=== PATIENT | male | born 1940 | race Caucasian/White ===

== ENCOUNTER 2016-10-31 10:22 | Inpatient (IN) | payer OTHER, BC ==
--- NOTE | 2016-10-31 10:56 | DR.EXTPAIN ---
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 HE ALSO HAVE DIFFICULY AMBULATING.USUALY HE REQUIRE ASSISTANCE. LAST NIGHT HE TRY TO GET UP WITHOUT HELP AND FELL ON HIS LEFT SIDE. RESIDUAL LEFT SIDED WEAKNESS SINCE STOKE. HE IS COMPLAING OF LEFT HIP, LEFT LEG AND LEFT KNEEPAIN.ABRSION ON LEFT KNEE. SOME BRUISING ON LEFT SCALP. HE TAKE ASPIRIN. VOMITED ONCE IN ED. - Complaint/Symptoms Chief Complaint Doctor Comments: FALL, LEFT HIP AND LEG PAIN SINCE LAST NIGHT. - Nurses notes reviewed Nurses Notes Review: Yes - Source History Provided: Family Member - Mode of arrival Mode of Arrival: Wheelchair PMH - PMH Past Medical History: CVA, Diabetes, Hypertension Past Surgical History: Yes Surgical History: Unknown - Family History Family Medical History: Coronary Artery Disease, Hypertension - Social History Do you use any recreational Drugs:: No ROS - Review of Systems Constitutional: negative: Chills, Fever Eyes: No Symptoms Reported. negative: Eye Pain, Discharge ENTM: negative: Ear Pain, Nose Discharge, Nose Congestion, Throat Pain Respiratoy: Short of Breath (ON EXERTION) Cardiovascular: No Symptoms Reported. negative: Chest Pain, Edema Gastrointestinal/Abdominal: No Symptoms Reported. negative: Abdominal Pain, Diarrhea, Nausea, Vomiting Neurological: Pre-existing Deficit (LEFT SIDED WEAKNEE, APHASIA), Other ( INCONTINENCE TO URINE). negative: Headache, Dizziness Musculoskeletal: Muscle Pain Integumentary: No Symptoms Reported Hematologic/Lymphatic: No Symptoms Reported Endocrine: No Symptoms Reported All Other Systems: Reviewed and Negative PE - Vital Signs Vitals: Temperature 97.6 F Pulse Rate 72 Respiratory Rate 16 Blood Pressure [Right Arm] 156/72 Blood Pressure [Left Arm] 140/72 Blood Pressure 149/67 O2 Sat by Pulse Oximetry 95 - General Limitations: Other (APHASIA) General Appearance: Alert - Head Head Exam: Normal Inspection - Eyes Eye exam: Normal Appearance - ENT ENT Exam: Normal External Ear Exam - Neck Neck Exam: Normal Inspection - Chest Chest Inspection: Symmetric Chest Wall Rise - Respiratory Respiratory Exam: Normal Lung Sounds Bilat Respiratory Exam: Bilateral Rhonchi, Lower Rhonchi - Cardiovascular Cardiovascular Exam: Regular Rate, Normal Rhythm, Normal Heart Sounds - Abdominal Exam Abdominal Exam: Normal Bowel Sounds, Soft. negative: Tenderness - Extremities Extremities Exam: Tenderness (LEFT HIP AND LEG,), Joint Swelling (LEFT HIP AND KNEE) - Upper Extremities Shoulder Exam: Normal Inspection Arm Exam: Normal Inspection Elbow Exam: Normal Inspection Forearm Exam: Normal Inspection Hand Exam: Normal Inspection Upper Ext. Vascular Exam: Capillary Refill - Lower Extremities Hip/Pelvis Exam: Tenderness (LEFT HIP). negative: Full ROM (DECREASE ROM LT HIP ) Upper Leg Exam: Tenderness (LT FEMUR) Knee Exam: Normal Inspection (TENDER. SMALL ABRASION PRESENT) Lower Leg Exam: Tenderness Foot/Toe Exam: Normal Inspection Neurovascular/Tendon Exam: Motor Deficit (LT SIDED WEAK), Sensory Deficit (LEFT SIDED WEAKNESS FROM PREVIOUS STROKE.) Gait Exam: Not Tested/Not Observed, Unable to bear weight - Back Back Exam: Normal Inspection - Neurological Neurological Exam: Alert, Oriented X3, Motor Sensory Deficit (LT SIDE FROM PREVIOUS STROKE.), Other (APHASIA) - Psychiatric Psychiatric Exam: Normal Affect, Anxious - Skin Type of Lesion: Abrasion (LT KNEE) MDM - Differential Diagnosis Differential Diagnosis: Abrasion, Contusion, Fracture, Sprain Course - Treatment Treatment: SEE ORDERS. - Consultation Consultation Comments: DISCUSS PATIENT WITH DR. AKBAR, ORTHOPEDIC DR. PCP TO ADMIT. HE WILL CONSULT. DR. HOOD WILL ADMIT PATIENT. - Education/Counseling Education/Counseling: Patient, Family, Education Educated On: Diagnosis ROR - Labs Reviewed Laboratory Results Reviewed?: Yes Result Diagrams: 10/31/16 11:02 10/31/16 11:02 Laboratory: WBC 15.3 X10^3/uL (3.6-10.0) H 10/31/16 11:02 RBC 4.06 X10^6/uL (4.7-6.0) L 10/31/16 11:02 Hgb 11.1 g/dL (13.5-18.0) L 10/31/16 11:02 Hct 33.5 % (42.0-54.0) L 10/31/16 11:02 MCV 82.7 fL (80.0-100.0) 10/31/16 11:02 MCH 27.3 pg (27.0-34.0) 10/31/16 11:02 MCHC 33.0 g/dL (33.0-35.0) 10/31/16 11:02 RDW 16.4 % (11.6-16.5) 10/31/16 11:02 Plt Count 219 X10^3/uL (150.0-450.0) 10/31/16 11:02 MPV 7.2 fL (7.4-11.0) L 10/31/16 11:02 Neut % 85.1 % (42.0-75.0) H 10/31/16 11:02 Lymph % 5.1 % (21.0-51.0) L 10/31/16 11:02 [place] % 3.6 % (0.0-13.0) 10/31/16 11:02 Eos % 5.3 % (0.9-2.9) H 10/31/16 11:02 Baso % 0.9 % (0.2-1.0) 10/31/16 11:02 Neut # 13.0 x10^3/uL (2.2-4.8) H 10/31/16 11:02 Lymph # 0.8 X10^3/uL (1.3-2.9) L 10/31/16 11:02 [place] # 0.5 x10^3/uL (0.3-0.8) 10/31/16 11:02 Eos # 0.8 x10^3/uL (0.0-0.2) H 10/31/16 11:02 Baso # 0.1 X10^3/uL (0.0-0.1) 10/31/16 11:02 Absolute Nucleated RBC 0.0 /100WBC 10/31/16 11:02 INR Target Range - 10/31/16 11:02 INR 1.22 (0.8-1.3) 10/31/16 11:02 PTT 25.8 SECONDS (22.9-36.5) 10/31/16 11:02 PTT Comment - 10/31/16 11:02 Bleeding Time 5.3 MINUTES (2.0-8.0) 10/31/16 16:15 Sodium 142 mmol/L (136-145) 10/31/16 11:02 Corrected Sodium 143 mmol/L (136-145) 10/31/16 11:02 Potassium 4.1 mmol/L (3.5-5.1) 10/31/16 11:02 Chloride 108 mmol/L (98-107) H 10/31/16 11:02 Carbon Dioxide 19.8 mmol/L (21-32) L 10/31/16 11:02 BUN 27 mg/dL (7-18) H 10/31/16 11:02 Creatinine 1.60 mg/dL (0.70-1.30) H 10/31/16 11:02 Est GFR (MDRD) Af Amer 54 (>60) L 10/31/16 11:02 Est GFR (MDRD) Non-Af 45 (>60) L 10/31/16 11:02 Glucose 155 mg/dL (65-99) H 10/31/16 11:02 Calcium 8.7 mg/dL (8.5-10.1) 10/31/16 11:02 Corrected Calcium TNP 10/31/16 11:02 Total Bilirubin 0.60 mg/dL (0.2-1.0) 10/31/16 11:02 AST 25 Units/L (15-37) 10/31/16 11:02 ALT 27 Units/L (12-78) 10/31/16 11:02 Alkaline Phosphatase 83 Units/L (46-116) 10/31/16 11:02 Total Protein 7.7 g/dL (6.4-8.2) 10/31/16 11:02 Albumin 3.4 g/dL (3.4-5.0) 10/31/16 11:02 Globulin 4.3 g/dL (2.5-4.5) 10/31/16 11:02 Albumin/Globulin Ratio 0.8 Ratio (1.1-2.1) L 10/31/16 11:02 Specimen Type Catherized urine 10/31/16 18:46 Urine Color Yellow (YELLOW) 10/31/16 18:46 Urine Appearance Hazy (CLEAR) 10/31/16 18:46 Urine pH 5.0 (5.0 - 8.0) 10/31/16 18:46 Ur Specific [place] 1.020 (1.000-1.030) 10/31/16 18:46 Urine Protein 2+ (NEGATIVE) 10/31/16 18:46 Urine Glucose (UA) 1+ (NEGATIVE) 10/31/16 18:46 Urine Ketones Negative (NEGATIVE) 10/31/16 18:46 Urine Occult Blood 3+ (NEGATIVE) 10/31/16 18:46 Urine Nitrite Negative (NEGATIVE) 10/31/16 18:46 Urine Bilirubin Negative (NEGATIVE) 10/31/16 18:46 Urine Urobilinogen Normal (NORMAL) 10/31/16 18:46 Ur Leukocyte Esterase 1+ (NEGATIVE) 10/31/16 18:46 Urine RBC 11-20 /HPF (NEGATIVE) 10/31/16 18:46 Urine WBC 3-5 /HPF (NEGATIVE) 10/31/16 18:46 Ur Squamous Epith Cells Rare /HPF (NEGATIVE) 10/31/16 18:46 Urine Bacteria Trace /HPF (NEGATIVE) 10/31/16 18:46 Ur Culture Indicated? No/not indicated 10/31/16 18:46 Staph aureus (PCR) Positive (NEGATIVE) A 10/31/16 16:10 MRSA (PCR) Positive (NEGATIVE) A 10/31/16 16:10 Blood Type A NEGATIVE 10/31/16 13:37 Antibody Screen Negative 10/31/16 13:37 Crossmatch See Detail 10/31/16 13:37 - XRAY XRAY Interpreted by: Radiologist XRAY Findings: REPORT DISCUSS WITH PATIENT AND HIS . - EKG Rhythm: NSR (EKG NOTED) - Diagnosis Discharge Problem: Abrasion, Multiple contusions, Aphasia Fracture of femoral neck, left Qualifiers: Encounter type: initial encounter Fracture type: closed Qualified Code(s): S72.002A - Fracture of unspecified part of neck of left femur, initial encounter for closed fracture Knee sprain Qualifiers: Encounter type: initial encounter Involved ligament of knee: unspecified ligament Laterality: left Qualified Code(s): S83.92XA - Sprain of unspecified site of left knee, initial encounter - Discharge Plan Disposition: 09 ADMITTED INPATIENT Condition: Stable - Follow ups/Referrals - Instructions
[2016-10-31 11:14] LABS: BASOPHILS # (AUTO) 0.1 X10^3/uL (0.0-0.1); BASOPHILS % (AUTO) 0.9 % (0.2-1.0); EOSINOPHILS # (AUTO) 0.8 x10^3/uL (0.0-0.2); EOSINOPHILS % (AUTO) 5.3 % (0.9-2.9); HEMATOCRIT 33.5 % (42.0-54.0); HEMOGLOBIN 11.1 g/dL (13.5-18.0); LYMPHOCYTES # (AUTO) 0.8 X10^3/uL (1.3-2.9); LYMPHOCYTES % (AUTO) 5.1 % (21.0-51.0); MEAN CORPUSCULAR HEMOGLOBIN 27.3 pg (27.0-34.0); MEAN CORPUSCULAR VOLUME 82.7 fL (80.0-100.0); MEAN PLATELET VOLUME 7.2 fL (7.4-11.0); MONOCYTES # (AUTO) 0.5 x10^3/uL (0.3-0.8); MONOCYTES % (AUTO) 3.6 % (0.0-13.0); NEUTROPHILS % (AUTO) 85.1 % (42.0-75.0); PLATELET COUNT 219 X10^3/uL (150.0-450.0); RED BLOOD COUNT 4.06 X10^6/uL (4.7-6.0); RED CELL DISTRIBUTION WIDTH 16.4 % (11.6-16.5); WHITE BLOOD COUNT 15.3 X10^3/uL (3.6-10.0)
[2016-10-31 11:23] LABS: ALANINE AMINOTRANSFERASE 27 Units/L (12-78); ALBUMIN 3.4 g/dL (3.4-5.0); ALKALINE PHOSPHATASE 83 Units/L (46-116); ASPARTATE AMINO TRANSFERASE 25 Units/L (15-37); BLOOD UREA NITROGEN 27 mg/dL (7-18); CALCIUM 8.7 mg/dL (8.5-10.1); CARBON DIOXIDE 19.8 mmol/L (21-32); CHLORIDE 108 mmol/L (98-107); COR NA(FOR HYPERGLY) 143 mmol/L (136-145); GLUCOSE 155 mg/dL (65-99); SODIUM 142 mmol/L (136-145); TOTAL PROTEIN 7.7 g/dL (6.4-8.2); eGFR BLACK RACES 54 (>60); eGFR NON BLACK RACES 45 (>60)
--- NOTE | 2016-10-31 12:13 | RAD ---
HISTORY: Injury, fall, left hip pain Study: AP pelvis Comparison: None Findings: The upper aspects of the iliac wings are not included on the image. The bones are osteopenic. The vi sualized pelvic bones and SI joints are normal. There is a complete subcapital fracture of the left femoral neck present. IMPRESSION: Complete subcapital fracture left femoral neck Reported By:
--- NOTE | 2016-10-31 12:14 | RAD ---
HISTORY: Injury, fall, left lower extremity pain Study: Left tibia and fibula two views Comparison: None Findings: There is no evidence for fracture, lytic, or blastic lesion. No abnormal periosteal reaction or soft tissue abnormality is identified. Incidental note is made of soft tissue arterial vascular calcific ations. IMPRESSION: No fracture identified Reported By:
--- NOTE | 2016-10-31 12:16 | RAD ---
HISTORY: Pain Study: Left femur series Comparison: None. Findings: There is a transverse fracture along the base of the left femoral neck which is slightly impacted. T he left femoral head remains well placed within the acetabulum. The distal femur is intact and the b ones are osteopenic. IMPRESSION: Mildly displaced left femoral neck fracture. Diffuse osteopenia. Reported By:
--- NOTE | 2016-10-31 13:18 | CT ---
HISTORY: Injury, fall, left hip pain Study: CT pelvis without contrast Comparison: Plain films same date Technique: Axial non contrast images with coronal and sagittal reformats. Dose reduction procedures were use [facility] MA/kv adjusted for body size. Findings: The bones are mildly osteopenic. Facet arthropathy is present bilaterally at L4-5 and L5-S1. The sac rum and SI joints are intact. The pelvic bones are intact. There is mild degenerative joint space na rrowing in the right hip joint. The right proximal femur is intact. There is a complete subcapital fracture of the left femoral neck. There is some cephalad displacement of the distal fracture fragme nt. The left hip joint is intact. 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 Mild degenerative joint space narrowing right hip joint Reported By:
--- NOTE | 2016-10-31 13:25 | RAD ---
HISTORY: Preoperative evaluation Study: Single view chest Comparison: 09/08/2016 Findings: The lungs are clear without consolidation, effusion or pneumothorax. The cardiac and mediastinal co ntours are within normal limits. The soft tissues are unremarkable. IMPRESSION: 1. No acute cardiopulmonary abnormality. Reported By:
[2016-10-31] MEDS ORDERED: ZOFRAN INJ 4 MG VIAL IVP PRN (14:18)
[2016-10-31] MEDS ORDERED: MORPHINE SULFATE INJ 2 MG IVP PRN (14:18)
[2016-10-31] MEDS: NORVASC TAB 5 MG PO SCH ×2 (14:32→22:51)
[2016-10-31] MEDS: NS 1000 ML 1,000 ML IV SCH (14:32)
[2016-10-31] MEDS ORDERED: DIPRIVAN VIAL ONE (15:02)
[2016-10-31] MEDS ORDERED: NEO-SYNEPHRINE INJ ONE (15:02)
[2016-10-31] MEDS ORDERED: XYLOCAINE 2 % (PLAIN) ONE (15:02)
--- NOTE | 2016-10-31 15:24 | DR.H&P ---
H&P - History & Physical for Day of: H&P Date: 10/31/16 - Chief Complaint Chief Complaint: FALL, LEFT HIP AND LEG PAIN - Allergies Allergies/Adverse Reactions: Allergies Allergy/AdvReac Type Severity Reaction Status Date / Time No Known Drug Allergy Allergy Verified 10/31/16 10:46 - History of Present Illness History of Present Illness: THIS IS A 76 YEAR OLD MALE, WHO IS A PATIENT OF OURS. HE PRESENTS TO THE EMERGENCY ROOM WITH COMPLAINTS OF LEFT HIP AND LEG PAIN FOLLOWING A FALL AT HOME LAST NIGHT. AT BEDSIDE AND REPORTS PATIENT FELL HE WAS GETTING UP FROM A RECLINER CHAIR. PATIENT IS UP WITH ASSISTANCE AT HOME. ON THIS OCCASION, PATIENT STOOD WITHOUT ASSISTANCE AND FELL, AND LEFT SIDE OF BODY HIT THE FLOOR. AND FAMILY MEMBER HELPED PATIENT UP AND TO BED. REPORTS THIS MORNING, PATIENT IS UNABLE TO BEAR WEIGHT ON LEFT LEG. ON EXAMINATION, LEFT HIP AND LEG IS NOTED WITH SEVERE TENDERNESS WITH SWELLING TO LEFT HIP AND KNEE, AND DECREASED RANGE OF MOTION. POSITIVE PEDAL PULSE IS NOTED BILATERALLY. SMALL ABRASION NOTED TO LEFT KNEE. XRAYS AND CT OBTAINED. XRAY OF LEFT FEMUR REPORTS MILDLY DISPLACED LEFT FEMORAL NECK FRACTURE; DIFFUSE OSTEOPENIA. LEFT HIP XRAY REPORTS COMPLETE SUBCAPITAL FRACTURE OF LEFT FEMORAL NECK. LEFT TIBIA AND FIBULA XRAY REPORTS NO FRACTURE. CT OF PELVIS REPORTS COMPLETE SUBCAPITAL FRACURE OF THE LEFT FEMORAL NECK; OSTEOPENIA; FACET DEGENERATIVE JOINT DISEASE LOWER LUMBAR SPINE; MILD DEGENERATIVE JOINT SPACE NARROWING RIGHT HIP JOINT. CHEST XRAY NORMAL. EKG: SINUS RHYTHM, RATE 70. WE WILL ADMIT PATIENT TO HOSPITAL AND CONSULT DARION LOERA FOR FURTHER EVALUATION. WE WILL - Past Medical History Past Medical History: Anxiety, CVA, Diabetes, Dyslipidemia, GERD, Hypertension Additional Medical History: Hx GI Ulcer/Bleed, Hiatal Hernia, Ventral Hernia, Pneumonia, Back Pain, BPH, Vascular Dementia, Unsteady Gait, Left-sided weakness , Constipation - Past Surgical History Additional Surgical History: Bilat Cataract removal - Family History Family Medical History: Coronary Artery Disease, Hypertension - Social History Does patient currently use any type of tobacco product: No Have you used tobacco products in the last 12 months: No Type of Tobacco Use: None Does any household member use tobacco: No Alcohol Use: None - Medications Home Medications: Amlodipine Besylate [Norvasc] 5 mg PO BID 04/23/14 Aspirin EC [ECOTRIN 325 MG *] 325 mg PO DAILY 04/23/14 Atorvastatin Calcium [Lipitor] 20 mg PO HS 04/23/14 Docusate Sodium [Colace] 1 cap PO DAILY 04/23/14 Glimepiride [Glimepiride 4 mg] 4 mg PO DAILY 04/23/14 Insulin Detemir (Levemir) [LEVEMIR INSULIN *] 17 units SC HS 04/23/14 Metoprolol Tartrate [LOPRESSOR 50 MG *] 50 mg PO BID 04/23/14 Omeprazole [Prilosec 40 mg] 40 mg PO BID 04/23/14 Sertraline HCl [ZOLOFT 100 MG *] 100 mg PO BID 04/23/14 Fluticasone Propionate (Nasal) [Flonase Allergy Relief OTC] 1 spray ENOSTRIL BID 05/05/15 Insulin Detemir (Levemir) [LEVEMIR INSULIN *] 34 units SC DAILY 05/05/15 Levocetirizine Dihydrochloride [Levocetirizine Dihydrochl] 5 mg PO HS Megestrol Acetate [MEGACE TAB 40 MG *] 40 mg PO DAILY 05/05/15 Montelukast Sodium [SINGULAIR TAB 10 MG *] 10 mg PO DAILY 05/05/15 Erythromycin Base [Isaias-Tab] 1 tab PO BID 08/31/16 Levothyroxine Sodium [Synthroid] 1 tab PO DAILY 08/31/16 Fe Bisglycinate Chelate-Vit C- [Gentle Iron 28-60-0.008-0.4 mg] 1 cap PO DAILY 10/31/16 Nitrofurantoin Monohyd Macro [Macrobid] 1 cap PO BID 10/31/16 Tamsulosin HCl [FLOMAX (GENERIC) 0.4 MG *] 1 cap PO .SUPPER 10/31/16 - Review of Systems Constitutional: Weakness Eyes: No Symptoms Reported. denies: Pain, Vision Change, Conjunctivae Inflammation, Eyelid Inflammation, Redness ENT: No Symptoms Reported. denies: Ear Pain, Ear Discharge, Nose Pain, Nose Discharge, Nose Congestion, Mouth Pain, Mouth Swelling, Throat Pain, Throat Swelling Respiratory: SOB with Excertion. denies: Cough, Shortness of Breath, Hemoptysis , Pleuritic Pain, Sputum, Wheezing Cardiovascular: No Symptoms Reported. denies: Chest Pain, Palpitations, Orthopnea, Paroxysmal Noc. Dyspnea, Edema, Light Headedness Gastrointestinal: No Symptoms Reported. denies: Nausea, Vomiting, Abdominal Pain, Diarrhea, Constipation, Melena, Hematochezia Genitourinary: No Symptoms Reported. denies: Dysuria, Frequency, Incontinence, Hematuria, Retention Musculoskeletal: Leg Pain (Left), Other (Left Hip Pain) Skin: No Symptoms Reported. denies: Rash, Lesions, Jaundice, Bruising, Wound, Ecchymosis Neurological: Weakness, Other (Aphasia from previous CVA). denies: Numbness, Incoordination, Change in Speech, Confusion, Seizures - Physical Exam Vital Signs: Temperature 98.4 F Pulse Rate [Right Brachial] 72 Respiratory Rate 20 Blood Pressure [Right Arm] 142/74 O2 Sat by Pulse Oximetry 95 Oriented: Person Eyes: Normal. negative: Blurred Vision, Diplopia, Discharge, Pain, Redness, Photophobia Ear: Normal. negative: Swelling, Ecchymosis, Hemotypanum, Abrasion, Laceration Nose: Normal. negative: Injected, Discharge, Blood Throat: Normal. negative: Tonsillar Hypertrophy, Red, Exudate Respiratory: Clear Throughout Cardiovascular: Normal. negative: Murmur, Edema : Normal. negative: Dysuria, Hematuria, Frequency, Discharge, Testicular Pain Auscultation: Bowel Sounds: Normal. negative: Bruit Palpation: Normal. negative: Spleen Enlarged, Liver Enlarged, Mass Pulsatile Tenderness: Normal. negative: Rebound, Guarding, Rigidity Skin: Normal. negative: Diaphoresis, Wound, Bruising, Ecchymosis Musculoskeletal: Left, Hip, Leg, Swelling, Tender, Deformity, Instability. negative: Pulse Deficit Psychiatric: Normal Mood Description: Calm, Appropriate Affect: Normal Speech Pattern: Aphasic - Assessment/Plan (1) Fracture of femoral neck, left Qualifiers: Encounter type: initial encounter Fracture type: closed Open fracture type: O Fracture healing: F Qualified Code(s): S72.002A - Fracture of unspecified part of neck of left femur, initial encounter for closed fracture Status: Acute Plan: ADMIT PATIENT, CONSULT DR. STYLES, ORTHO, START IV FLUIDS, ANCEF IV, MORPHINE IV, HOLD ASPIRIN, MONITOR. (2) Diabetes mellitus, type 2 Qualifiers: Diabetes mellitus complication status: without complication Diabetes mellitus complication detail: D Diabetic retinopathy severity: D Proliferative retinopathy type: P Diabetes mellitus macular edema: D Diabetes mellitus retirement insulin use: with retirement use Laterality: L Chronic kidney disease stage: C Qualified Code(s): E11.9 - Type 2 diabetes mellitus without complications; Z79.4 - termite technician (current) use of insulin Status: Chronic (3) Essential hypertension Status: Chronic (4) History of CVA (cerebrovascular accident) Status: Chronic (5) GERD (gastroesophageal reflux disease) Qualifiers: Esophagitis presence: esophagitis presence not specified Qualified Code(s) : K21.9 - Gastro-esophageal reflux disease without esophagitis Status: Chronic (6) Vascular dementia Qualifiers: Dementia behavioral disturbance: without behavioral disturbance Qualified Code(s): F01.50 - Vascular dementia without behavioral disturbance Status: Chronic (7) Hyperlipidemia Qualifiers: Hyperlipidemia type: mixed hyperlipidemia Qualified Code(s): E78.2 - Mixed hyperlipidemia Status: Chronic (8) BPH (benign prostatic hyperplasia) Qualifiers: Prostatic enlargement morphology: non-nodular Lower urinary tract symptom presence: symptoms present Qualified Code(s): N40.1 - Benign prostatic hyperplasia with lower urinary tract symptoms Status: Chronic
[2016-10-31] MEDS ORDERED: MORPHINE SULFATE INJ 4 MG IVP ONE (17:15)
[2016-10-31] MEDS ORDERED: MORPHINE SULFATE INJ 4 MG ONE (17:35)
[2016-10-31] MEDS ORDERED: Q PUMP EPI ONE (18:30)
[2016-10-31] MEDS ORDERED: MARCAINE 0.5% 52 ML, NS 1000 ML 348 ML EPI ONE ×2 (19:00)
[2016-10-31 19:02] LABS: BILIRUBIN,URINE NEGATIVE (NEGATIVE); BLOOD/HEMOGLOBIN,URINE 3+ (NEGATIVE); GLUCOSE, URINE 1+ (NEGATIVE); KETONES,URINE NEGATIVE (NEGATIVE); LEUKOCYTE ESTERASE ,URINE 1+ (NEGATIVE); NITRITES,URINE NEGATIVE (NEGATIVE); PROTEIN,URINE 2+ (NEGATIVE); UROBILINOGEN,URINE NORMAL (NORMAL)
[2016-10-31 19:11] LABS: APPEARANCE,URINE HAZY (CLEAR); BACTERIA,URINE TRACE /HPF (NEGATIVE); COLOR,URINE YELLOW (YELLOW); SQUAMOUS EPITHELIAL CELL,UR RARE /HPF (NEGATIVE)
[2016-10-31] MEDS: MORPHINE SULFATE INJ 2 MG IVP PRN (20:00)
[2016-10-31] MEDS ORDERED: [UNRECOGNIZED DRUG - OTHER] PO SCH (21:00)
[2016-10-31] MEDS ORDERED: ZOLOFT PO ONE (21:03)
[2016-10-31] MEDS: FLOMAX PO SCH (21:27)
[2016-10-31] MEDS: ZOLOFT PO SCH (21:27)
[2016-10-31] MEDS: ZyrTEC TAB 10 MG PO SCH (21:27)
[2016-10-31] MEDS: LIPITOR TAB 20 MG PO SCH (21:27)
[2016-10-31] MEDS: RESTORIL CAP 30 MG PO SCH (21:28)
[2016-10-31] MEDS: FLONASE NASAL SPRAY ENOSTRIL SCH (21:33)
[2016-10-31] MEDS ORDERED: VANCOMYCIN 1 GM PREMIX (ADDVANTAGE) 250 ML IV SCH (22:00)
[2016-10-31] MEDS: SNACK - Diabetic Appropriate PO SCH (22:49)
[2016-10-31] MEDS: LOPRESSOR TAB 50 MG PO SCH (22:50)
[2016-10-31] MEDS ORDERED: VANCOMYCIN HCL 500 MG VIAL 250 MG, VANCOMYCIN HCL 1 GM VIAL 1 GM in D5W 250 ML IV 250 ML IV ONE (23:00)
[2016-10-31] MEDS: ERYTHROMYCIN STEARATE 250 MG TAB PO SCH (23:04)
[2016-10-31] MEDS: MARCAINE 0.25% INJ ONE (23:10)
[2016-10-31] MEDS ORDERED: VANCOMYCIN HCL 1 GM VIAL ONE (23:36)
[2016-10-31] MEDS ORDERED: VANCOMYCIN HCL 500 MG VIAL ONE (23:36)
[2016-10-31] MEDS ORDERED: D5W 250 ML IV 250 ML IV ONE (23:36)
[2016-10-31] MEDS ORDERED: VANCOMYCIN HCL 500 MG VIAL 250 MG, VANCOMYCIN HCL 1 GM VIAL 1 GM in D5W 250 ML IV 250 ML IV SCH (23:45)
[2016-11-01] MEDS: BACTROBAN OINT TOP SCH ×4 (00:04→21:25)
[2016-11-01 05:25] LABS: BASOPHILS # (AUTO) 0.1 X10^3/uL (0.0-0.1); BASOPHILS % (AUTO) 0.7 % (0.2-1.0); EOSINOPHILS # (AUTO) 0.8 x10^3/uL (0.0-0.2); HEMATOCRIT 27.8 % (42.0-54.0); HEMOGLOBIN 9.3 g/dL (13.5-18.0); LYMPHOCYTES # (AUTO) 0.9 X10^3/uL (1.3-2.9); LYMPHOCYTES % (AUTO) 8.7 % (21.0-51.0); MEAN CORPUSCULAR HEMOGLOBIN 28.2 pg (27.0-34.0); MEAN CORPUSCULAR HGB CONC 33.5 g/dL (33.0-35.0); MEAN CORPUSCULAR VOLUME 84.1 fL (80.0-100.0); MEAN PLATELET VOLUME 7.5 fL (7.4-11.0); MONOCYTES # (AUTO) 0.6 x10^3/uL (0.3-0.8); MONOCYTES % (AUTO) 5.8 % (0.0-13.0); NEUTROPHILS # (AUTO) 8.5 x10^3/uL (2.2-4.8); NEUTROPHILS % (AUTO) 77.8 % (42.0-75.0); PLATELET COUNT 152 X10^3/uL (150.0-450.0); RED BLOOD COUNT 3.31 X10^6/uL (4.7-6.0); WHITE BLOOD COUNT 10.9 X10^3/uL (3.6-10.0)
[2016-11-01] MEDS: NS 1000 ML 1,000 ML IV SCH ×2 (05:39→21:20)
[2016-11-01 05:44] LABS: ALBUMIN 2.7 g/dL (3.4-5.0); CARBON DIOXIDE 18.8 mmol/L (21-32); CREATININE 1.59 mg/dL (0.70-1.30); TOTAL PROTEIN 6.5 g/dL (6.4-8.2)
--- NOTE | 2016-11-01 06:53 | PCM.PROG ---
Progress Note - Progress Note for Day of Date: 11/01/16 - Subjective Subjective: PATIENT RESTS IN BED, AT BEDSIDE. HE IS NOTED WITH FACIAL GRIMACING AND SOME DISCOMFORT THIS MORNING. HE CONTINUES WITH TENDERNESS TO LEFT HIP AND LEG. PATIENT IS CURRENTLY NPO FOR SURGERY FOR LEFT HIP REPAIR PER DR. STYLES. WE DISCUSS PROCEDURE WITH PATIENT AND HIS , BOTH VOICE UNDERSTANDING AND ARE IN AGREEMENT WITH TREATMENT. PEDAL PULSE POSITIVE BILATERALLY. PATIENT WAS STARTED ON IV VANCOMYCIN AND BACTROBAN OINTMENT FOR POSITIVE NOSE CULTURES WITH STAPH AND MRSA. LUNGS CLEAR TO AUSCULTATION. CBC WNL EXCEPT: WBC IMPROVED FROM 15.3 TO 10.9, H/H 9.3/27.8. CMP WNL EXCEPT: CHL 109, BUN/CREAT 26/1.59. GFR 45, GLUCOSE 117, CALCIUM 8.0, ALBUMIN 2.7. WE WILL CONTINUE PAIN MANAGMENT AND FOLLOW SURGERY. PATIENT IS MEDICALLY CLEAR FOR SURGERY. - Past Medical Family Social History Past Med/Fam/Surg Hx: No changes since H&P Allergies: Allergies No Known Drug Allergy Allergy (Verified 10/31/16 10:46) - Review of Systems ROS: No change since H&P - Vital Signs and I&O's Vital Signs: Temperature 98.9 F Pulse Rate [Left Brachial] 75 Pulse Rate [Right Brachial] 74 Respiratory Rate 20 Blood Pressure [Right Arm] 159/70 Blood Pressure [Left Arm] 102/58 O2 Sat by Pulse Oximetry 94 Intake and Output: Intake & Output 10/29/16 10/30/16 10/31/16 11/01/16 11:59 11:59 11:59 11:59 Intake Total 772 Output Total 1150 Balance -378 - Physical Exam Oriented: Person, Place Eyes: Normal. negative: Blurred Vision, Diplopia, Discharge, Pain, Redness, Photophobia Ear: Normal. negative: Swelling, Ecchymosis, Hemotypanum, Abrasion, Laceration Nose: Normal. negative: Injected, Discharge, Blood Throat: Normal. negative: Tonsillar Hypertrophy, Red, Exudate Respiratory: Normal Cardiovascular: Normal. negative: Murmur, Edema : Normal. negative: Dysuria, Hematuria, Frequency, Discharge, Testicular Pain Auscultation: Bowel Sounds: Normal. negative: Bruit Palpation: Normal. negative: Spleen Enlarged, Liver Enlarged, Mass Pulsatile Tenderness: Normal. negative: Rebound, Guarding, Rigidity Skin: Normal. negative: Diaphoresis, Wound, Bruising, Ecchymosis Musculoskeletal: Left, Hip, Leg, Swelling, Tender, Deformity, Instability. negative: Pulse Deficit Psychiatric: Normal Mood Description: Calm, Appropriate Affect: Normal Speech Pattern: Unclear, Inappropriate - Laboratory and Diagnostics Result Diagrams: 11/01/16 03:35 11/01/16 03:35 Labs: Laboratory WBC 10.9 X10^3/uL (3.6-10.0) H 11/01/16 03:35 RBC 3.31 X10^6/uL (4.7-6.0) L 11/01/16 03:35 Hgb 9.3 g/dL (13.5-18.0) L 11/01/16 03:35 Hct 27.8 % (42.0-54.0) L 11/01/16 03:35 MCV 84.1 fL (80.0-100.0) 11/01/16 03:35 MCH 28.2 pg (27.0-34.0) 11/01/16 03:35 MCHC 33.5 g/dL (33.0-35.0) 11/01/16 03:35 RDW 17.0 % (11.6-16.5) H 11/01/16 03:35 Plt Count 152 X10^3/uL (150.0-450.0) 11/01/16 03:35 MPV 7.5 fL (7.4-11.0) 11/01/16 03:35 Neut % 77.8 % (42.0-75.0) H 11/01/16 03:35 Lymph % 8.7 % (21.0-51.0) L 11/01/16 03:35 [place] % 5.8 % (0.0-13.0) 11/01/16 03:35 Eos % 7.0 % (0.9-2.9) H 11/01/16 03:35 Baso % 0.7 % (0.2-1.0) 11/01/16 03:35 Neut # 8.5 x10^3/uL (2.2-4.8) H 11/01/16 03:35 Lymph # 0.9 X10^3/uL (1.3-2.9) L 11/01/16 03:35 [place] # 0.6 x10^3/uL (0.3-0.8) 11/01/16 03:35 Eos # 0.8 x10^3/uL (0.0-0.2) H 11/01/16 03:35 Baso # 0.1 X10^3/uL (0.0-0.1) 11/01/16 03:35 Absolute Nucleated RBC 0.0 /100WBC 11/01/16 03:35 INR Target Range - 10/31/16 11:02 INR 1.22 (0.8-1.3) 10/31/16 11:02 PTT 25.8 SECONDS (22.9-36.5) 10/31/16 11:02 PTT Comment - 10/31/16 11:02 Bleeding Time 5.3 MINUTES (2.0-8.0) 10/31/16 16:15 Sodium 142 mmol/L (136-145) 11/01/16 03:35 Corrected Sodium 142 mmol/L (136-145) 11/01/16 03:35 Potassium 3.9 mmol/L (3.5-5.1) 11/01/16 03:35 Chloride 109 mmol/L (98-107) H 11/01/16 03:35 Carbon Dioxide 18.8 mmol/L (21-32) L 11/01/16 03:35 BUN 26 mg/dL (7-18) H 11/01/16 03:35 Creatinine 1.59 mg/dL (0.70-1.30) H 11/01/16 03:35 Est GFR (MDRD) Af Amer 55 (>60) L 11/01/16 03:35 Est GFR (MDRD) Non-Af 45 (>60) L 11/01/16 03:35 Glucose 117 mg/dL (65-99) H 11/01/16 03:35 Calcium 8.0 mg/dL (8.5-10.1) L 11/01/16 03:35 Corrected Calcium 9.0 mg/dL (8.5-10.1) 11/01/16 03:35 Total Bilirubin 0.50 mg/dL (0.2-1.0) 11/01/16 03:35 AST 22 Units/L (15-37) 04/18/17 03:35 ALT 21 Units/L (12-78) 11/01/16 03:35 Alkaline Phosphatase 71 Units/L (46-116) 11/01/16 03:35 Total Protein 6.5 g/dL (6.4-8.2) 11/01/16 03:35 Albumin 2.7 g/dL (3.4-5.0) L 11/01/16 03:35 Globulin 3.8 g/dL (2.5-4.5) 11/01/16 03:35 Albumin/Globulin Ratio 0.7 Ratio (1.1-2.1) L 11/01/16 03:35 Specimen Type Catherized urine 10/31/16 18:46 Urine Color Yellow (YELLOW) 10/31/16 18:46 Urine Appearance Hazy (CLEAR) 10/31/16 18:46 Urine pH 5.0 (5.0 - 8.0) 10/31/16 18:46 Ur Specific [place] 1.020 (1.000-1.030) 10/31/16 18:46 Urine Protein 2+ (NEGATIVE) 10/31/16 18:46 Urine Glucose (UA) 1+ (NEGATIVE) 10/31/16 18:46 Urine Ketones Negative (NEGATIVE) 10/31/16 18:46 Urine Occult Blood 3+ (NEGATIVE) 10/31/16 18:46 Urine Nitrite Negative (NEGATIVE) 10/31/16 18:46 Urine Bilirubin Negative (NEGATIVE) 10/31/16 18:46 Urine Urobilinogen Normal (NORMAL) 10/31/16 18:46 Ur Leukocyte Esterase 1+ (NEGATIVE) 10/31/16 18:46 Urine RBC 11-20 /HPF (NEGATIVE) 10/31/16 18:46 Urine WBC 3-5 /HPF (NEGATIVE) 10/31/16 18:46 Ur Squamous Epith Cells Rare /HPF (NEGATIVE) 10/31/16 18:46 Urine Bacteria Trace /HPF (NEGATIVE) 10/31/16 18:46 Ur Culture Indicated? No/not indicated 10/31/16 18:46 Staph aureus (PCR) Positive (NEGATIVE) A 10/31/16 16:10 MRSA (PCR) Positive (NEGATIVE) A 10/31/16 16:10 Blood Type A NEGATIVE 10/31/16 13:37 Antibody Screen Negative 10/31/16 13:37 Crossmatch See Detail 10/31/16 13:37 - Plan (1) Fracture of femoral neck, left Status: Acute Qualifiers: Encounter type: initial encounter Fracture type: closed Open fracture type: O Fracture healing: F Qualified Code(s): S72.002A - Fracture of unspecified part of neck of left femur, initial encounter for closed fracture Plan: PATIENT NPO FOR SURGERY TODAY PER DR. STYLES, CONTINUE IV FLUIDS, ANCEF IV, VANCOMYCIN, MORPHINE IV, HOLD ASPIRIN, MONITOR. PATIENT IS MEDICALLY CLEAR FOR SURGERY. (2) Diabetes mellitus, type 2 Status: Chronic Qualifiers: Diabetes mellitus complication status: without complication Diabetes mellitus complication detail: D Diabetic retinopathy severity: D Proliferative retinopathy type: P Diabetes mellitus macular edema: D Diabetes mellitus superintendent marine oil terminal insulin use: with skilled nursing use Laterality: L Chronic kidney disease stage: C Qualified Code(s): E11.9 - Type 2 diabetes mellitus without complications; Z79.4 - oysterman (current) use of insulin (3) Essential hypertension Status: Chronic (4) History of CVA (cerebrovascular accident) Status: Chronic (5) GERD (gastroesophageal reflux disease) Status: Chronic Qualifiers: Esophagitis presence: esophagitis presence not specified Qualified Code(s) : K21.9 - Gastro-esophageal reflux disease without esophagitis (6) Vascular dementia Status: Chronic Qualifiers: Dementia behavioral disturbance: without behavioral disturbance Qualified Code(s): F01.50 - Vascular dementia without behavioral disturbance (7) Hyperlipidemia Status: Chronic Qualifiers: Hyperlipidemia type: mixed hyperlipidemia Qualified Code(s): E78.2 - Mixed hyperlipidemia (8) BPH (benign prostatic hyperplasia) Status: Chronic Qualifiers: Prostatic enlargement morphology: non-nodular Lower urinary tract symptom presence: symptoms present Qualified Code(s): N40.1 - Benign prostatic hyperplasia with lower urinary tract symptoms
[2016-11-01] MEDS ORDERED: HYDROGEN PEROXIDE 3% ONE (07:06)
[2016-11-01] MEDS ORDERED: MARCAINE 0.25% WITH EPI IJ ONE ×2 (07:06→07:33)
[2016-11-01] MEDS ORDERED: BACTROBAN OINT ONE (07:06)
[2016-11-01] MEDS ORDERED: LR 1000 ML IV 1,000 ML IV ONE (07:22)
[2016-11-01] MEDS ORDERED: ANCEF VIAL 1 GM ONE (07:23)
[2016-11-01] MEDS ORDERED: NS 50 ML IV + SPIKE MINIBAG* 50 ML IV ONE (07:24)
[2016-11-01] MEDS ORDERED: ANCEF VIAL 1 GM 2 GM in NS 100 ML IV 100 ML IV ONE (07:30)
[2016-11-01] MEDS ORDERED: NS IRRIGATION 1000 ML 1,000 ML with BACITRACIN VIAL 50,000 UNT IR ONE ×2 (08:22)
[2016-11-01] MEDS ORDERED: NS IRRIGATION 3000 ML 3,000 ML with BACITRACIN VIAL 50,000 UNT IR ONE ×4 (08:22)
[2016-11-01] MEDS ORDERED: NS 500 ML IV 500 ML IV ONE (08:42)
[2016-11-01] MEDS: MARCAINE 0.25% INJ ONE (08:43)
[2016-11-01] MEDS ORDERED: ZOFRAN INJ 4 MG VIAL IVP PRN (10:40)
[2016-11-01] MEDS ORDERED: PHENERGAN INJ 25 MG IVP PRN (10:40)
[2016-11-01] MEDS ORDERED: REGLAN INJ 10 MG VIAL IVP PRN (10:40)
[2016-11-01] MEDS ORDERED: BENADRYL INJ 50 MG VIAL IVP PRN (10:40)
[2016-11-01] MEDS ORDERED: DILAUDID INJ IVP PRN (10:40)
[2016-11-01] MEDS ORDERED: MARCAINE 0.5% 52 ML, NS 1000 ML 348 ML IJ PRN ×2 (10:46)
[2016-11-01] MEDS ORDERED: Q PUMP EPI PRN (10:46)
--- NOTE | 2016-11-01 11:09 | RAD ---
HISTORY: Postop left hip surgery Study: Two views left hip Comparison: 10/31/2016 Findings: Minimal left hip hemiarthroplasty. The hardware appears intact without perihardware lucency, malalig nment or fracture. Surrounding soft tissue edema and gas compatible with recent surgery. The remaind er of the bony pelvis appears stable. IMPRESSION: 1. Intact left hip prosthesis without complication. Reported By:
[2016-11-01] MEDS ORDERED: ZOLOFT PO ONE ×2 (12:04→20:31)
[2016-11-01] MEDS: SYNTHROID 50 mcg TAB PO SCH (12:08)
[2016-11-01] MEDS: ZOLOFT PO SCH ×2 (12:08→21:23)
[2016-11-01] MEDS: SINGULAIR TAB 10 MG PO SCH (12:08)
[2016-11-01] MEDS: NORVASC TAB 5 MG PO SCH ×2 (12:08→21:24)
[2016-11-01] MEDS: LOPRESSOR TAB 50 MG PO SCH ×2 (12:08→21:25)
[2016-11-01] MEDS: MEGACE PO SCH (12:08)
[2016-11-01] MEDS: COLACE CAP 100 MG PO SCH (12:09)
[2016-11-01] MEDS: ERYTHROMYCIN STEARATE 250 MG TAB PO SCH ×2 (12:11→21:24)
[2016-11-01] MEDS: HumuLIN R SUBCUT PRN (13:53)
[2016-11-01] MEDS: FLONASE NASAL SPRAY ENOSTRIL SCH ×2 (14:52→21:25)
[2016-11-01] MEDS: MORPHINE SULFATE INJ 2 MG IVP PRN (16:25)
[2016-11-01 16:33] VITALS: BMI 23.3
[2016-11-01] MEDS: FLOMAX PO SCH (17:57)
[2016-11-01] MEDS: DILAUDID INJ IVP PRN (18:09)
[2016-11-01] MEDS ORDERED: VANCOMYCIN HCL 500 MG VIAL 250 MG, VANCOMYCIN HCL 1 GM VIAL 1 GM in D5W 250 ML IV 250 ML IV SCH (21:00)
[2016-11-01] MEDS: RESTORIL CAP 30 MG PO SCH (21:23)
[2016-11-01] MEDS: LIPITOR TAB 20 MG PO SCH (21:23)
[2016-11-01] MEDS: DULCOLAX TAB EC 5 MG PO SCH (21:24)
[2016-11-01] MEDS: ZyrTEC TAB 10 MG PO SCH (21:24)
[2016-11-01] MEDS ORDERED: VANCOMYCIN HCL 1 GM VIAL ONE (22:09)
[2016-11-01] MEDS ORDERED: VANCOMYCIN HCL 500 MG VIAL ONE (22:09)
[2016-11-01] MEDS ORDERED: D5W 250 ML IV 250 ML IV ONE (22:09)
[2016-11-01] MEDS: VANCOMYCIN HCL 500 MG VIAL 250 MG, VANCOMYCIN HCL 1 GM VIAL 1 GM in D5W 250 ML IV 250 ML IV SCH (22:21)
[2016-11-02] MEDS: SNACK - Diabetic Appropriate PO SCH ×2 (00:52→21:00)
[2016-11-02 05:21] LABS: BASOPHILS % (AUTO) 0.3 % (0.2-1.0); EOSINOPHILS # (AUTO) 0.7 x10^3/uL (0.0-0.2); EOSINOPHILS % (AUTO) 5.9 % (0.9-2.9); HEMATOCRIT 30.4 % (42.0-54.0); HEMOGLOBIN 10.3 g/dL (13.5-18.0); LYMPHOCYTES # (AUTO) 0.7 X10^3/uL (1.3-2.9); LYMPHOCYTES % (AUTO) 5.5 % (21.0-51.0); MEAN CORPUSCULAR HEMOGLOBIN 28.6 pg (27.0-34.0); MEAN CORPUSCULAR HGB CONC 33.9 g/dL (33.0-35.0); MEAN CORPUSCULAR VOLUME 84.4 fL (80.0-100.0); MEAN PLATELET VOLUME 7.8 fL (7.4-11.0); MONOCYTES # (AUTO) 0.7 x10^3/uL (0.3-0.8); MONOCYTES % (AUTO) 5.8 % (0.0-13.0); NEUTROPHILS # (AUTO) 10.2 x10^3/uL (2.2-4.8); NEUTROPHILS % (AUTO) 82.5 % (42.0-75.0); PLATELET COUNT 135 X10^3/uL (150.0-450.0); RED CELL DISTRIBUTION WIDTH 16.1 % (11.6-16.5); WHITE BLOOD COUNT 12.4 X10^3/uL (3.6-10.0)
[2016-11-02 05:28] LABS: SODIUM 140 mmol/L (136-145)
[2016-11-02 05:29] LABS: BLOOD UREA NITROGEN 24 mg/dL (7-18); CALCIUM 8.1 mg/dL (8.5-10.1); CARBON DIOXIDE 17.1 mmol/L (21-32); CHLORIDE 109 mmol/L (98-107); COR NA(FOR HYPERGLY) 142 mmol/L (136-145); CREATININE 1.45 mg/dL (0.70-1.30); GLUCOSE 188 mg/dL (65-99); eGFR BLACK RACES > 60 (>60); eGFR NON BLACK RACES 50 (>60)
[2016-11-02] MEDS: BACTROBAN OINT TOP SCH ×3 (05:41→21:00)
[2016-11-02] MEDS: NS 1000 ML 1,000 ML IV SCH ×3 (05:46→18:29)
[2016-11-02] MEDS: HumuLIN R SUBCUT PRN ×4 (06:00→20:58)
[2016-11-02] MEDS ORDERED: PHARMACY COMMENT IV SCH (08:45)
[2016-11-02] MEDS ORDERED: ZOLOFT PO ONE ×2 (09:07→20:45)
[2016-11-02] MEDS: SINGULAIR TAB 10 MG PO SCH (09:40)
[2016-11-02] MEDS: FLONASE NASAL SPRAY ENOSTRIL SCH ×2 (09:40→21:00)
[2016-11-02] MEDS: DILAUDID INJ IVP PRN (09:40)
[2016-11-02] MEDS: AMARYL TAB 4 MG PO SCH (09:40)
[2016-11-02] MEDS: COLACE CAP 100 MG PO SCH (09:40)
[2016-11-02] MEDS: MEGACE PO SCH (09:40)
[2016-11-02] MEDS: ZOLOFT PO SCH ×2 (09:40→20:57)
[2016-11-02] MEDS: LOPRESSOR TAB 50 MG PO SCH ×2 (09:40→20:59)
[2016-11-02] MEDS: ERYTHROMYCIN STEARATE 250 MG TAB PO SCH ×2 (09:40→21:00)
[2016-11-02] MEDS: NORVASC TAB 5 MG PO SCH ×2 (09:40→20:59)
[2016-11-02] MEDS: SYNTHROID 50 mcg TAB PO SCH (09:40)
--- NOTE | 2016-11-02 12:02 | PCM.PROG ---
Progress Note - Progress Note for Day of Date: 11/02/16 - Subjective Subjective: PATIENT IS POST-OP DAY ONE FOR LEFT HIP HEMIARTHROPLASTY PER DR. STYLES. PATIENT TOLERATED PROCEDURE WELL. PATIENT RESTS IN BED, SITTER AT BEDSIDE. PATIENT IS APHASIC DUE TO PRIOR CVA, BUT IS DOING WELL THIS MORNING POST SURGERY. HE IS SITTING UP, ALERT. YESTERDAY AFTERNOON, PATIENT HAD INCREASED PAIN FOLLOWING SURGERY. WE STARTED DILAUDID IV NEEDED AND PATIENT HAS TOLERATED PAIN BETTER. PATIENT IS NOTED WITH TENDERNESS TO LEFT HIP ON EXAMINATION. DRESSING TO LEFT HIP IS DRY AND INTACT. PEDAL PULSE POSITIVE BILATERALLY. PATIENT CONTINUES ON IV VANCOMYCIN AND BACTROBAN OINTMENT FOR POSITIVE NOSE CULTURES WITH STAPH AND MRSA. LUNGS CLEAR TO AUSCULTATION. CBC WNL EXCEPT: WBC 12.4, H/H 10.3/30.4, PLT COUNT 135. BMP WNL EXCEPT: CHL 109, BUN/CREAT 24/1.45, GFR 50, GLUCOSE 188, CALCIUM 8.1. WE WILL CONTINUE PAIN MANAGMENT, PHYSICAL THERAPY, AND CONTINUE TO FOLLOW SURGERY. WE WILL FOLLOW UP IN AM WITH LABS. - Past Medical Family Social History Past Med/Fam/Surg Hx: No changes since H&P Allergies: Allergies No Known Drug Allergy Allergy (Verified 10/31/16 10:46) - Review of Systems ROS: No change since H&P - Vital Signs and I&O's Vital Signs: Temperature 98 F Pulse Rate [Left Brachial] 83 Pulse Rate [Right Brachial] 82 Pulse Rate 76 Respiratory Rate 16 Blood Pressure [Right Arm] 113/55 Blood Pressure [Left Arm] 125/62 Blood Pressure 130/68 O2 Sat by Pulse Oximetry 100 Intake and Output: Intake & Output 10/30/16 10/31/16 11/01/16 11/02/16 11:59 11:59 11:59 11:59 Intake Total 1301 1153 Output Total 3575 1200 Balance -3074 -47 - Physical Exam Oriented: Person Eyes: Normal. negative: Blurred Vision, Diplopia, Discharge, Pain, Redness, Photophobia Ear: Normal. negative: Swelling, Ecchymosis, Hemotypanum, Abrasion, Laceration Nose: Normal. negative: Injected, Discharge, Blood Throat: Normal. negative: Tonsillar Hypertrophy, Red, Exudate Respiratory: Normal Cardiovascular: Normal. negative: Murmur, Edema : Normal. negative: Dysuria, Hematuria, Frequency, Discharge, Testicular Pain Auscultation: Bowel Sounds: Normal. negative: Bruit Palpation: Normal. negative: Spleen Enlarged, Liver Enlarged, Mass Pulsatile Tenderness: Normal. negative: Rebound, Guarding, Rigidity Skin: Wound (Surgical Incision to Left Hip - dressing dry and intact). negative : Diaphoresis, Bruising, Ecchymosis Musculoskeletal: Left, Hip, Tender, Instability. negative: Pulse Deficit Psychiatric: Normal Mood Description: Calm, Appropriate Affect: Normal Speech Pattern: Aphasic - Laboratory and Diagnostics Result Diagrams: 11/02/16 03:20 11/02/16 03:20 Labs: 10/31/16 18:46 Urine,Catheterized Urine Culture - Final 10/31/16 19:15 Blood Blood Culture - Preliminary 10/31/16 19:15 Blood Blood Culture - Preliminary Laboratory WBC 12.4 X10^3/uL (3.6-10.0) H 11/02/16 03:20 RBC 3.60 X10^6/uL (4.7-6.0) L 11/02/16 03:20 Hgb 10.3 g/dL (13.5-18.0) L 11/02/16 03:20 Hct 30.4 % (42.0-54.0) L 11/02/16 03:20 MCV 84.4 fL (80.0-100.0) 11/02/16 03:20 MCH 28.6 pg (27.0-34.0) 11/02/16 03:20 MCHC 33.9 g/dL (33.0-35.0) 11/02/16 03:20 RDW 16.1 % (11.6-16.5) 11/02/16 03:20 Plt Count 135 X10^3/uL (150.0-450.0) L 11/02/16 03:20 MPV 7.8 fL (7.4-11.0) 11/02/16 03:20 Neut % 82.5 % (42.0-75.0) H 11/02/16 03:20 Lymph % 5.5 % (21.0-51.0) L 11/02/16 03:20 [place] % 5.8 % (0.0-13.0) 11/02/16 03:20 Eos % 5.9 % (0.9-2.9) H 11/02/16 03:20 Baso % 0.3 % (0.2-1.0) 11/02/16 03:20 Neut # 10.2 x10^3/uL (2.2-4.8) H 11/02/16 03:20 Lymph # 0.7 X10^3/uL (1.3-2.9) L 11/02/16 03:20 [place] # 0.7 x10^3/uL (0.3-0.8) 11/02/16 03:20 Eos # 0.7 x10^3/uL (0.0-0.2) H 11/02/16 03:20 Baso # 0.0 X10^3/uL (0.0-0.1) 11/02/16 03:20 Absolute Nucleated RBC 0.0 /100WBC 11/02/16 03:20 INR Target Range - 10/31/16 11:02 INR 1.22 (0.8-1.3) 10/31/16 11:02 PTT 25.8 SECONDS (22.9-36.5) 10/31/16 11:02 PTT Comment - 10/31/16 11:02 Bleeding Time 5.3 MINUTES (2.0-8.0) 10/31/16 16:15 Sodium 140 mmol/L (136-145) 11/02/16 03:20 Corrected Sodium 142 mmol/L (136-145) 11/02/16 03:20 Potassium 4.1 mmol/L (3.5-5.1) 11/02/16 03:20 Chloride 109 mmol/L (98-107) H 11/02/16 03:20 Carbon Dioxide 17.1 mmol/L (21-32) L 11/02/16 03:20 BUN 24 mg/dL (7-18) H 11/02/16 03:20 Creatinine 1.45 mg/dL (0.70-1.30) H 11/02/16 03:20 Est GFR (MDRD) Af Amer > 60 (>60) 11/02/16 03:20 Est GFR (MDRD) Non-Af 50 (>60) L 11/02/16 03:20 Glucose 188 mg/dL (65-99) H 11/02/16 03:20 Calcium 8.1 mg/dL (8.5-10.1) L 11/02/16 03:20 Corrected Calcium 9.0 mg/dL (8.5-10.1) 11/01/16 03:35 Total Bilirubin 0.50 mg/dL (0.2-1.0) 11/01/16 03:35 AST 22 Units/L (15-37) 11/01/16 03:35 ALT 21 Units/L (12-78) 11/01/16 03:35 Alkaline Phosphatase 71 Units/L (46-116) 11/01/16 03:35 Total Protein 6.5 g/dL (6.4-8.2) 11/01/16 03:35 Albumin 2.7 g/dL (3.4-5.0) L 11/01/16 03:35 Globulin 3.8 g/dL (2.5-4.5) 11/01/16 03:35 Albumin/Globulin Ratio 0.7 Ratio (1.1-2.1) L 11/01/16 03:35 Specimen Type Catherized urine 10/31/16 18:46 Urine Color Yellow (YELLOW) 10/31/16 18:46 Urine Appearance Hazy (CLEAR) 10/31/16 18:46 Urine pH 5.0 (5.0 - 8.0) 10/31/16 18:46 Ur Specific [place] 1.020 (1.000-1.030) 10/31/16 18:46 Urine Protein 2+ (NEGATIVE) 10/31/16 18:46 Urine Glucose (UA) 1+ (NEGATIVE) 10/31/16 18:46 Urine Ketones Negative (NEGATIVE) 10/31/16 18:46 Urine Occult Blood 3+ (NEGATIVE) 10/31/16 18:46 Urine Nitrite Negative (NEGATIVE) 10/31/16 18:46 Urine Bilirubin Negative (NEGATIVE) 10/31/16 18:46 Urine Urobilinogen Normal (NORMAL) 10/31/16 18:46 Ur Leukocyte Esterase 1+ (NEGATIVE) 10/31/16 18:46 Urine RBC 11-20 /HPF (NEGATIVE) 10/31/16 18:46 Urine WBC 3-5 /HPF (NEGATIVE) 10/31/16 18:46 Ur Squamous Epith Cells Rare /HPF (NEGATIVE) 10/31/16 18:46 Urine Bacteria Trace /HPF (NEGATIVE) 10/31/16 18:46 Ur Culture Indicated? No/not indicated 10/31/16 18:46 Staph aureus (PCR) Positive (NEGATIVE) A 10/31/16 16:10 MRSA (PCR) Positive (NEGATIVE) A 10/31/16 16:10 Blood Type A NEGATIVE 10/31/16 13:37 Antibody Screen Negative 10/31/16 13:37 Crossmatch See Detail 10/31/16 13:37 - Plan (1) S/P hip hemiarthroplasty Status: Acute Plan: CONTINUE WOUND CARE, IV FLUIDS, VANCOMYCIN, DILAUDID, MORPHINE IV, HOLD ASPIRIN, MONITOR. (2) Fracture of femoral neck, left Status: Acute Qualifiers: Encounter type: initial encounter Fracture type: closed Open fracture type: O Fracture healing: F Qualified Code(s): S72.002A - Fracture of unspecified part of neck of left femur, initial encounter for closed fracture Plan: CONTINUE WOUND CARE, IV FLUIDS, VANCOMYCIN, DILAUDID, MORPHINE IV, HOLD ASPIRIN, MONITOR. 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 use Laterality: L Chronic kidney disease stage: C Qualified Code(s): E11.9 - Type 2 diabetes mellitus without complications; Z79.4 - manager intermediate (current) use of insulin (4) Essential hypertension Status: Chronic (5) History of CVA (cerebrovascular accident) Status: Chronic (6) GERD (gastroesophageal reflux disease) Status: Chronic Qualifiers: Esophagitis presence: esophagitis presence not specified Qualified Code(s) : K21.9 - Gastro-esophageal reflux disease without esophagitis (7) Vascular dementia Status: Chronic Qualifiers: Dementia behavioral disturbance: without behavioral disturbance Qualified Code(s): F01.50 - Vascular dementia without behavioral disturbance (8) Hyperlipidemia Status: Chronic Qualifiers: Hyperlipidemia type: mixed hyperlipidemia Qualified Code(s): E78.2 - Mixed hyperlipidemia (9) BPH (benign prostatic hyperplasia) Status: Chronic Qualifiers: Prostatic enlargement morphology: non-nodular Lower urinary tract symptom presence: symptoms present Qualified Code(s): N40.1 - Benign prostatic hyperplasia with lower urinary tract symptoms
[2016-11-02] MEDS: MORPHINE SULFATE INJ 2 MG IVP PRN (13:42)
--- NOTE | 2016-11-02 15:11 | PCM.PROG ---
Progress Note - Progress Note for Day of Date: 11/02/16 (POSTOPERATIVE DAY 1) - Subjective Subjective: patient is postop day 1. He is doing well. She was sitting on a chair today. Patient tried to get out of the bed. Few steps with the help of physical therapy. Dressing is intact. Afebrile. Vital signs normal. Distal neurovascular exams normal. Labs were reviewed. Currently on a scheduled pain medication. He is also on vancomycin. He has an UTI and started on appropriate antibiotics for him per Dr. Llanos. Again discussed with his about possible hip dislocation because of his inability to follow hip precautions and instructions due to his mental condition. It's hard for him to understand and follow instructions. Same was conveyed to the . The understood verbalized the same - Past Medical Family Social History Past Med/Fam/Surg Hx: No changes since H&P Allergies: Allergies No Known Drug Allergy Allergy (Verified 10/31/16 10:46) - Review of Systems ROS: No change since H&P - Vital Signs and I&O's Vital Signs: Temperature 98.9 F Pulse Rate [Left Brachial] 83 Pulse Rate [Right Brachial] 84 Pulse Rate 76 Respiratory Rate 18 Blood Pressure [Right Arm] 118/64 Blood Pressure [Left Arm] 125/62 Blood Pressure 130/68 O2 Sat by Pulse Oximetry 100 Intake and Output: Intake & Output 10/31/16 11/01/16 11/02/16 11/03/16 11:59 11:59 11:59 11:59 Intake Total 1301 1153 Output Total 4375 1200 Balance -3074 -47 - Physical Exam Oriented: Normal, Person, Place, Not Oriented, Unable to test, Other Eyes: Normal. negative: Blurred Vision, Diplopia, Discharge, Pain, Redness, Photophobia Ear: Normal. negative: Swelling, Ecchymosis, Hemotypanum, Abrasion, Laceration Nose: Normal. negative: Injected, Discharge, Blood Throat: Normal. negative: Tonsillar Hypertrophy, Red, Exudate Respiratory: Normal Cardiovascular: Normal. negative: Murmur, Edema : Normal. negative: Dysuria, Hematuria, Frequency, Discharge, Testicular Pain Auscultation: Bowel Sounds: Normal. negative: Bruit Tenderness: Normal. negative: Rebound, Guarding, Rigidity Skin: Wound (Surgical Incision to Left Hip - dressing dry and intact). negative : Diaphoresis, Bruising, Ecchymosis Musculoskeletal: Left, Hip, Tender. negative: Pulse Deficit Psychiatric: Normal Mood Description: Calm, Appropriate Affect: Normal Speech Pattern: Aphasic - Laboratory and Diagnostics Result Diagrams: 11/02/16 03:20 11/02/16 03:20 Labs: 10/31/16 18:46 Urine,Catheterized Urine Culture - Final 10/31/16 19:15 Blood Blood Culture - Preliminary 10/31/16 19:15 Blood Blood Culture - Preliminary Laboratory WBC 12.4 X10^3/uL (3.6-10.0) H 11/02/16 03:20 RBC 3.60 X10^6/uL (4.7-6.0) L 11/02/16 03:20 Hgb 10.3 g/dL (13.5-18.0) L 11/02/16 03:20 Hct 30.4 % (42.0-54.0) L 11/02/16 03:20 MCV 84.4 fL (80.0-100.0) 11/02/16 03:20 MCH 28.6 pg (27.0-34.0) 11/02/16 03:20 MCHC 33.9 g/dL (33.0-35.0) 11/02/16 03:20 RDW 16.1 % (11.6-16.5) 11/02/16 03:20 Plt Count 135 X10^3/uL (150.0-450.0) L 11/02/16 03:20 MPV 7.8 fL (7.4-11.0) 11/02/16 03:20 Neut % 82.5 % (42.0-75.0) H 11/02/16 03:20 Lymph % 5.5 % (21.0-51.0) L 11/02/16 03:20 [place] % 5.8 % (0.0-13.0) 11/02/16 03:20 Eos % 5.9 % (0.9-2.9) H 11/02/16 03:20 Baso % 0.3 % (0.2-1.0) 11/02/16 03:20 Neut # 10.2 x10^3/uL (2.2-4.8) H 11/02/16 03:20 Lymph # 0.7 X10^3/uL (1.3-2.9) L 11/02/16 03:20 [place] # 0.7 x10^3/uL (0.3-0.8) 11/02/16 03:20 Eos # 0.7 x10^3/uL (0.0-0.2) H 11/02/16 03:20 Baso # 0.0 X10^3/uL (0.0-0.1) 11/02/16 03:20 Absolute Nucleated RBC 0.0 /100WBC 11/02/16 03:20 INR Target Range - 10/31/16 11:02 INR 1.22 (0.8-1.3) 10/31/16 11:02 PTT 25.8 SECONDS (22.9-36.5) 10/31/16 11:02 PTT Comment - 10/31/16 11:02 Bleeding Time 5.3 MINUTES (2.0-8.0) 10/31/16 16:15 Sodium 140 mmol/L (136-145) 11/02/16 03:20 Corrected Sodium 142 mmol/L (136-145) 11/02/16 03:20 Potassium 4.1 mmol/L (3.5-5.1) 11/02/16 03:20 Chloride 109 mmol/L (98-107) H 11/02/16 03:20 Carbon Dioxide 17.1 mmol/L (21-32) L 11/02/16 03:20 BUN 24 mg/dL (7-18) H 11/02/16 03:20 Creatinine 1.45 mg/dL (0.70-1.30) H 11/02/16 03:20 Est GFR (MDRD) Af Amer > 60 (>60) 11/02/16 03:20 Est GFR (MDRD) Non-Af 50 (>60) L 11/02/16 03:20 Glucose 188 mg/dL (65-99) H 11/02/16 03:20 Calcium 8.1 mg/dL (8.5-10.1) L 11/02/16 03:20 Corrected Calcium 9.0 mg/dL (8.5-10.1) 11/01/16 03:35 Total Bilirubin 0.50 mg/dL (0.2-1.0) 11/01/16 03:35 AST 22 Units/L (15-37) 11/01/16 03:35 ALT 21 Units/L (12-78) 11/01/16 03:35 Alkaline Phosphatase 71 Units/L (46-116) 11/01/16 03:35 Total Protein 6.5 g/dL (6.4-8.2) 11/01/16 03:35 Albumin 2.7 g/dL (3.4-5.0) L 11/01/16 03:35 Globulin 3.8 g/dL (2.5-4.5) 11/01/16 03:35 Albumin/Globulin Ratio 0.7 Ratio (1.1-2.1) L 11/01/16 03:35 Specimen Type Catherized urine 10/31/16 18:46 Urine Color Yellow (YELLOW) 10/31/16 18:46 Urine Appearance Hazy (CLEAR) 10/31/16 18:46 Urine pH 5.0 (5.0 - 8.0) 10/31/16 18:46 Ur Specific [place] 1.020 (1.000-1.030) 10/31/16 18:46 Urine Protein 2+ (NEGATIVE) 10/31/16 18:46 Urine Glucose (UA) 1+ (NEGATIVE) 10/31/16 18:46 Urine Ketones Negative (NEGATIVE) 10/31/16 18:46 Urine Occult Blood 3+ (NEGATIVE) 10/31/16 18:46 Urine Nitrite Negative (NEGATIVE) 10/31/16 18:46 Urine Bilirubin Negative (NEGATIVE) 10/31/16 18:46 Urine Urobilinogen Normal (NORMAL) 10/31/16 18:46 Ur Leukocyte Esterase 1+ (NEGATIVE) 10/31/16 18:46 Urine RBC 11-20 /HPF (NEGATIVE) 10/31/16 18:46 Urine WBC 3-5 /HPF (NEGATIVE) 10/31/16 18:46 Ur Squamous Epith Cells Rare /HPF (NEGATIVE) 10/31/16 18:46 Urine Bacteria Trace /HPF (NEGATIVE) 10/31/16 18:46 Ur Culture Indicated? No/not indicated 10/31/16 18:46 Staph aureus (PCR) Positive (NEGATIVE) A 10/31/16 16:10 MRSA (PCR) Positive (NEGATIVE) A 04/17/17 16:10 Blood Type A NEGATIVE 10/31/16 13:37 Antibody Screen Negative 10/31/16 13:37 Crossmatch See Detail 10/31/16 13:37 - Plan (1) Fracture of femoral neck, left Status: Acute Qualifiers: Encounter type: initial encounter Fracture type: closed Open fracture type: O Fracture healing: F Qualified Code(s): S72.002A - Fracture of unspecified part of neck of left femur, initial encounter for closed fracture Plan: CONTINUE WOUND CARE, IV FLUIDS, VANCOMYCIN, DILAUDID, MORPHINE IV, HOLD ASPIRIN, MONITOR. we will start low dose heparin for DVT prophylaxis. (2) S/P hip hemiarthroplasty Status: Acute Plan: CONTINUE WOUND CARE, IV FLUIDS, VANCOMYCIN, DILAUDID, MORPHINE IV, HOLD ASPIRIN, MONITOR.
[2016-11-02] MEDS: LOVENOX INJ 30 MG SYR SC SCH (15:49)
[2016-11-02] MEDS: FLOMAX PO SCH (18:29)
[2016-11-02] MEDS: RESTORIL CAP 30 MG PO SCH (20:57)
[2016-11-02] MEDS: ZyrTEC TAB 10 MG PO SCH (20:57)
[2016-11-02] MEDS: DULCOLAX TAB EC 5 MG PO SCH (20:57)
[2016-11-02] MEDS: LIPITOR TAB 20 MG PO SCH (21:00)
[2016-11-02] MEDS ORDERED: NS 250 ML IV 250 ML IV ONE (23:47)
[2016-11-02] MEDS ORDERED: VANCOMYCIN HCL 1 GM VIAL ONE (23:47)
[2016-11-02] MEDS ORDERED: VANCOMYCIN HCL 500 MG VIAL ONE (23:47)
[2016-11-02] MEDS: VANCOMYCIN HCL 500 MG VIAL 250 MG, VANCOMYCIN HCL 1 GM VIAL 1 GM in D5W 250 ML IV 250 ML IV SCH (23:54)
[2016-11-03 05:24] LABS: BASOPHILS % (AUTO) 0.4 % (0.2-1.0); EOSINOPHILS # (AUTO) 0.5 x10^3/uL (0.0-0.2); EOSINOPHILS % (AUTO) 4.8 % (0.9-2.9); HEMATOCRIT 27.6 % (42.0-54.0); HEMOGLOBIN 9.1 g/dL (13.5-18.0); LYMPHOCYTES # (AUTO) 0.9 X10^3/uL (1.3-2.9); LYMPHOCYTES % (AUTO) 8.3 % (21.0-51.0); MEAN CORPUSCULAR HEMOGLOBIN 28.4 pg (27.0-34.0); MEAN CORPUSCULAR HGB CONC 33.1 g/dL (33.0-35.0); MEAN CORPUSCULAR VOLUME 85.6 fL (80.0-100.0); MEAN PLATELET VOLUME 7.9 fL (7.4-11.0); MONOCYTES # (AUTO) 0.7 x10^3/uL (0.3-0.8); MONOCYTES % (AUTO) 6.4 % (0.0-13.0); NEUTROPHILS % (AUTO) 80.1 % (42.0-75.0); PLATELET COUNT 122 X10^3/uL (150.0-450.0); RED BLOOD COUNT 3.22 X10^6/uL (4.7-6.0); RED CELL DISTRIBUTION WIDTH 16.2 % (11.6-16.5); WHITE BLOOD COUNT 11.2 X10^3/uL (3.6-10.0)
[2016-11-03 05:27] LABS: ALANINE AMINOTRANSFERASE 21 Units/L (12-78); ALBUMIN 2.1 g/dL (3.4-5.0); ALKALINE PHOSPHATASE 69 Units/L (46-116); ASPARTATE AMINO TRANSFERASE 24 Units/L (15-37); BILIRUBIN,DIRECT 0.09 mg/dL (0-0.2); BLOOD UREA NITROGEN 23 mg/dL (7-18); CARBON DIOXIDE 17.6 mmol/L (21-32); CHLORIDE 108 mmol/L (98-107); COR NA(FOR HYPERGLY) 141 mmol/L (136-145); CREATININE 1.45 mg/dL (0.70-1.30); GLUCOSE 164 mg/dL (65-99); SODIUM 139 mmol/L (136-145); TOTAL PROTEIN 5.9 g/dL (6.4-8.2); eGFR BLACK RACES > 60 (>60); eGFR NON BLACK RACES 50 (>60)
[2016-11-03] MEDS: BACTROBAN OINT TOP SCH ×3 (06:06→21:28)
[2016-11-03] MEDS: HumuLIN R SUBCUT PRN ×2 (06:40→17:15)
[2016-11-03] MEDS ORDERED: ZOLOFT PO ONE ×2 (08:37→20:32)
[2016-11-03] MEDS: LOVENOX INJ 30 MG SYR SC SCH (08:42)
[2016-11-03] MEDS: LOPRESSOR TAB 50 MG PO SCH ×2 (08:43→22:43)
[2016-11-03] MEDS: COLACE CAP 100 MG PO SCH (08:43)
[2016-11-03] MEDS: ZOLOFT PO SCH ×2 (08:43→21:17)
[2016-11-03] MEDS: NORVASC TAB 5 MG PO SCH ×2 (08:43→22:42)
[2016-11-03] MEDS: SYNTHROID 50 mcg TAB PO SCH (08:43)
[2016-11-03] MEDS: AMARYL TAB 4 MG PO SCH (08:44)
[2016-11-03] MEDS: MEGACE PO SCH (08:44)
[2016-11-03] MEDS: SINGULAIR TAB 10 MG PO SCH (08:44)
[2016-11-03] MEDS: ALBUMIN HUMAN 25%- 100ML 100 ML IV SCH (08:45)
[2016-11-03] MEDS: NS 1000 ML 1,000 ML IV SCH (08:45)
[2016-11-03] MEDS: FLONASE NASAL SPRAY ENOSTRIL SCH ×2 (08:52→21:20)
[2016-11-03] MEDS: ERYTHROMYCIN STEARATE 250 MG TAB PO SCH ×2 (08:55→21:19)
[2016-11-03] MEDS: MORPHINE SULFATE INJ 2 MG IVP PRN ×2 (13:30→17:25)
[2016-11-03] MEDS: HEMOCYTE-PLUS PO SCH (13:36)
[2016-11-03] MEDS: LEVEMIR SC SCH ×2 (14:22→22:41)
--- NOTE | 2016-11-03 15:29 | PCM.PROG ---
Progress Note - Progress Note for Day of Date: 11/03/16 (postoperative day 2) - Subjective Subjective: postoperative day 2. Patient afebrile stable vitals. Patient labs were reviewed. patient has been progressing very slowly with the help of physical therapy. His mental status doesn't allow him to follow instructions. - Past Medical Family Social History Past Med/Fam/Surg Hx: No changes since H&P Allergies: Allergies No Known Drug Allergy Allergy (Verified 10/31/16 10:46) - Review of Systems ROS: No change since H&P - Vital Signs and I&O's Vital Signs: Temperature 98.2 F Pulse Rate [Left Brachial] 83 Pulse Rate [Right Brachial] 79 Pulse Rate 81 Respiratory Rate 20 Blood Pressure [Right Arm] 122/64 Blood Pressure [Left Arm] 125/62 Blood Pressure 130/68 O2 Sat by Pulse Oximetry 91 Intake and Output: Intake & Output 11/01/16 11/02/16 11/03/16 11/04/16 11:59 11:59 11:59 11:59 Intake Total 1301 1153 1106 240 Output Total 4375 1200 800 750 Balance -3074 -47 306 -510 - Physical Exam Oriented: Normal, Person, Place, Not Oriented, Unable to test, Other Eyes: Normal. negative: Blurred Vision, Diplopia, Discharge, Pain, Redness, Photophobia Ear: Normal. negative: Swelling, Ecchymosis, Hemotypanum, Abrasion, Laceration Nose: Normal. negative: Injected, Discharge, Blood Throat: Normal. negative: Tonsillar Hypertrophy, Red, Exudate Respiratory: Normal Cardiovascular: Normal. negative: Murmur, Edema : Normal. negative: Dysuria, Hematuria, Frequency, Discharge, Testicular Pain Auscultation: Bowel Sounds: Normal. negative: Bruit Tenderness: Normal. negative: Rebound, Guarding, Rigidity Skin: Wound (Surgical Incision to Left Hip - dressing dry and intact). negative : Diaphoresis, Bruising, Ecchymosis Musculoskeletal: Left, Hip, Tender. negative: Pulse Deficit Psychiatric: Normal Mood Description: Calm, Appropriate Affect: Normal Speech Pattern: Unclear, Aphasic - Laboratory and Diagnostics Result Diagrams: 11/03/16 03:30 11/03/16 03:30 Labs: 10/31/16 18:46 Urine,Catheterized Urine Culture - Final 10/31/16 19:15 Blood Blood Culture - Preliminary 10/31/16 19:15 Blood Blood Culture - Preliminary Laboratory WBC 11.2 X10^3/uL (3.6-10.0) H 11/03/16 03:30 RBC 3.22 X10^6/uL (4.7-6.0) L 11/03/16 03:30 Hgb 9.1 g/dL (13.5-18.0) L 11/03/16 03:30 Hct 27.6 % (42.0-54.0) L 11/03/16 03:30 MCV 85.6 fL (80.0-100.0) 11/03/16 03:30 MCH 28.4 pg (27.0-34.0) 11/03/16 03:30 MCHC 33.1 g/dL (33.0-35.0) 11/03/16 03:30 RDW 16.2 % (11.6-16.5) 11/03/16 03:30 Plt Count 122 X10^3/uL (150.0-450.0) L 11/03/16 03:30 MPV 7.9 fL (7.4-11.0) 11/03/16 03:30 Neut % 80.1 % (42.0-75.0) H 11/03/16 03:30 Lymph % 8.3 % (21.0-51.0) L 11/03/16 03:30 [place] % 6.4 % (0.0-13.0) 11/03/16 03:30 Eos % 4.8 % (0.9-2.9) H 11/03/16 03:30 Baso % 0.4 % (0.2-1.0) 11/03/16 03:30 Neut # 9.0 x10^3/uL (2.2-4.8) H 11/03/16 03:30 Lymph # 0.9 X10^3/uL (1.3-2.9) L 11/03/16 03:30 [place] # 0.7 x10^3/uL (0.3-0.8) 11/03/16 03:30 Eos # 0.5 x10^3/uL (0.0-0.2) H 11/03/16 03:30 Baso # 0.0 X10^3/uL (0.0-0.1) 11/03/16 03:30 Absolute Nucleated RBC 0.0 /100WBC 11/03/16 03:30 INR Target Range - 10/31/16 11:02 INR 1.22 (0.8-1.3) 10/31/16 11:02 PTT 25.8 SECONDS (22.9-36.5) 10/31/16 11:02 PTT Comment - 10/31/16 11:02 Bleeding Time 5.3 MINUTES (2.0-8.0) 10/31/16 16:15 Sodium 139 mmol/L (136-145) 11/03/16 03:30 Corrected Sodium 141 mmol/L (136-145) 11/03/16 03:30 Potassium 3.8 mmol/L (3.5-5.1) 11/03/16 03:30 Chloride 108 mmol/L (98-107) H 11/03/16 03:30 Carbon Dioxide 17.6 mmol/L (21-32) L 11/03/16 03:30 BUN 23 mg/dL (7-18) H 11/03/16 03:30 Creatinine 1.45 mg/dL (0.70-1.30) H 11/03/16 03:30 Est GFR (MDRD) Af Amer > 60 (>60) 11/03/16 03:30 Est GFR (MDRD) Non-Af 50 (>60) L 11/03/16 03:30 Glucose 164 mg/dL (65-99) H 11/03/16 03:30 Calcium 8.0 mg/dL (8.5-10.1) L 11/03/16 03:30 Corrected Calcium 9.0 mg/dL (8.5-10.1) 11/01/16 03:35 Total Bilirubin 0.40 mg/dL (0.2-1.0) 11/03/16 03:30 Direct Bilirubin 0.09 mg/dL (0-0.2) 11/03/16 03:30 Indirect Bilirubin 0.31 mg/dL (0.2-0.8) 11/03/16 03:30 AST 24 Units/L (15-37) 11/03/16 03:30 ALT 21 Units/L (12-78) 11/03/16 03:30 Alkaline Phosphatase 69 Units/L (46-116) 11/03/16 03:30 Total Protein 5.9 g/dL (6.4-8.2) L 11/03/16 03:30 Albumin 2.1 g/dL (3.4-5.0) L 11/03/16 03:30 Globulin 3.8 g/dL (2.5-4.5) 11/03/16 03:30 Albumin/Globulin Ratio 0.6 Ratio (1.1-2.1) L 11/03/16 03:30 Specimen Type Catherized urine 10/31/16 18:46 Urine Color Yellow (YELLOW) 10/31/16 18:46 Urine Appearance Hazy (CLEAR) 10/31/16 18:46 Urine pH 5.0 (5.0 - 8.0) 10/31/16 18:46 Ur Specific [place] 1.020 (1.000-1.030) 10/31/16 18:46 Urine Protein 2+ (NEGATIVE) 10/31/16 18:46 Urine Glucose (UA) 1+ (NEGATIVE) 10/31/16 18:46 Urine Ketones Negative (NEGATIVE) 10/31/16 18:46 Urine Occult Blood 3+ (NEGATIVE) 10/31/16 18:46 Urine Nitrite Negative (NEGATIVE) 10/31/16 18:46 Urine Bilirubin Negative (NEGATIVE) 10/31/16 18:46 Urine Urobilinogen Normal (NORMAL) 10/31/16 18:46 Ur Leukocyte Esterase 1+ (NEGATIVE) 10/31/16 18:46 Urine RBC 11-20 /HPF (NEGATIVE) 10/31/16 18:46 Urine WBC 3-5 /HPF (NEGATIVE) 10/31/16 18:46 Ur Squamous Epith Cells Rare /HPF (NEGATIVE) 10/31/16 18:46 Urine Bacteria Trace /HPF (NEGATIVE) 10/31/16 18:46 Ur Culture Indicated? No/not indicated 10/31/16 18:46 Staph aureus (PCR) Positive (NEGATIVE) A 10/31/16 16:10 MRSA (PCR) Positive (NEGATIVE) A 10/31/16 16:10 Blood Type A NEGATIVE 10/31/16 13:37 Antibody Screen Negative 10/31/16 13:37 Crossmatch See Detail 10/31/16 13:37 - Plan (1) Fracture of femoral neck, left Status: Acute Qualifiers: Encounter type: initial encounter Fracture type: closed Open fracture type: O Fracture healing: F Qualified Code(s): S72.002A - Fracture of unspecified part of neck of left femur, initial encounter for closed fracture Plan: continue wound care, and DVT prophylaxis. I discussed with the that treatment take a little longer for him to recover with physical therapy than others as a chair.His mental symptoms at this time. She understands and verbalizes same. He continues to have hip precautions. (2) S/P hip hemiarthroplasty Status: Acute Plan: CONTINUE WOUND CARE, IV FLUIDS, VANCOMYCIN, DILAUDID, MORPHINE IV, HOLD ASPIRIN, MONITOR.
--- NOTE | 2016-11-03 15:54 | PCM.PROG ---
Progress Note - Progress Note for Day of Date: 11/03/16 - Subjective Subjective: PATIENT IS POST-OP DAY TWO FOR LEFT HIP HEMIARTHROPLASTY PER DR. STYLES. PATIENT SITS UP IN BED THIS MORNING. WHEN PATIENT IS ASKED HOW HE IS DOING THIS MORNING, HE SAYS "GOOD" AND IS SMILING. AT BEDSIDE. PATIENT'S PAIN IS CONTROLLED WITH IV DILAUDID. PHYSICAL THERAPY IS PROGRESSING VERY SLOWLY DUE TO PATIENT'S INABILITY TO FOLLOW INSTRUCTIONS DUE TO MENTAL DELAY FROM PRIOR CVA. DRESSING TO LEFT HIP IS DRY AND INTACT. PEDAL PULSES POSITIVE BILATERALLY. PATIENT CONTINUES ON IV VANCOMYCIN AND BACTROBAN OINTMENT FOR POSITIVE NOSE CULTURES WITH STAPH AND MRSA. LUNGS CLEAR TO AUSCULTATION. WE DISCUSS SHORT-TERM REHAB AT [facility] FOR FURTHER AND MORE AGGRESSIVE PHYSICAL THERAPY. VOICES UNDERSTANDING AND IS IN AGREEMENT. CBC WNL EXCEPT: WBC 11.2, H/H 9.1/27.6, PLT COUNT 122. CMP WNL EXCEPT: CHL 108 , BUN/CREAT 23/1.45, GFR 50, GLUCOSE 164, CALCIUM 8.0. WE WILL CONTINUE PAIN MANAGMENT, PHYSICAL THERAPY, AND CONTINUE TO FOLLOW SURGERY. WE WILL FOLLOW UP IN AM WITH LABS. - Past Medical Family Social History Past Med/Fam/Surg Hx: No changes since H&P Allergies: Allergies No Known Drug Allergy Allergy (Verified 10/31/16 10:46) - Review of Systems ROS: No change since H&P - Vital Signs and I&O's Vital Signs: Temperature 98.2 F Pulse Rate [Left Brachial] 83 Pulse Rate [Right Brachial] 79 Pulse Rate 81 Respiratory Rate 20 Blood Pressure [Right Arm] 122/64 Blood Pressure [Left Arm] 125/62 Blood Pressure 130/68 O2 Sat by Pulse Oximetry 91 Intake and Output: Intake & Output 11/01/16 11/02/16 11/03/16 11/04/16 11:59 11:59 11:59 11:59 Intake Total 1301 1153 1106 240 Output Total 4375 1200 800 750 Balance -3074 -47 306 510 - Physical Exam Oriented: Normal, Person, Unable to test (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 negative: Blurred Vision, Diplopia, Discharge, Pain, Redness, Photophobia Ear: Normal. negative: Swelling, Ecchymosis, Hemotypanum, Abrasion, Laceration Nose: Normal. negative: Injected, Discharge, Blood Throat: Normal. negative: Tonsillar Hypertrophy, Red, Exudate Respiratory: Normal Cardiovascular: Normal. negative: Murmur, Edema : Normal. negative: Dysuria, Hematuria, Frequency, Discharge, Testicular Pain Auscultation: Bowel Sounds: Normal. negative: Bruit Palpation: Normal. negative: Spleen Enlarged, Liver Enlarged, Mass Pulsatile Tenderness: Normal. negative: Rebound, Guarding, Rigidity Skin: Wound (Surgical Incision to Left Hip - dressing dry and intact). negative : Diaphoresis, Bruising, Ecchymosis Musculoskeletal: Left, Hip, Tender. negative: Pulse Deficit Psychiatric: Normal Mood Description: Calm, Appropriate Affect: Normal Speech Pattern: Unclear, Aphasic - Laboratory and Diagnostics Result Diagrams: 11/03/16 03:30 11/03/16 03:30 Labs: 10/31/16 18:46 Urine,Catheterized Urine Culture - Final 10/31/16 19:15 Blood Blood Culture - Preliminary 10/31/16 19:15 Blood Blood Culture - Preliminary Laboratory WBC 11.2 X10^3/uL (3.6-10.0) H 11/03/16 03:30 RBC 3.22 X10^6/uL (4.7-6.0) L 11/03/16 03:30 Hgb 9.1 g/dL (13.5-18.0) L 11/03/16 03:30 Hct 27.6 % (42.0-54.0) L 11/03/16 03:30 MCV 85.6 fL (80.0-100.0) 11/03/16 03:30 MCH 28.4 pg (27.0-34.0) 11/03/16 03:30 MCHC 33.1 g/dL (33.0-35.0) 11/03/16 03:30 RDW 16.2 % (11.6-16.5) 11/03/16 03:30 Plt Count 122 X10^3/uL (150.0-450.0) L 11/03/16 03:30 MPV 7.9 fL (7.4-11.0) 11/03/16 03:30 Neut % 80.1 % (42.0-75.0) H 11/03/16 03:30 Lymph % 8.3 % (21.0-51.0) L 11/03/16 03:30 [place] % 6.4 % (0.0-13.0) 11/03/16 03:30 Eos % 4.8 % (0.9-2.9) H 11/03/16 03:30 Baso % 0.4 % (0.2-1.0) 11/03/16 03:30 Neut # 9.0 x10^3/uL (2.2-4.8) H 11/03/16 03:30 Lymph # 0.9 X10^3/uL (1.3-2.9) L 11/03/16 03:30 [place] # 0.7 x10^3/uL (0.3-0.8) 11/03/16 03:30 Eos # 0.5 x10^3/uL (0.0-0.2) H 11/03/16 03:30 Baso # 0.0 X10^3/uL (0.0-0.1) 11/03/16 03:30 Absolute Nucleated RBC 0.0 /100WBC 11/03/16 03:30 INR Target Range - 10/31/16 11:02 INR 1.22 (0.8-1.3) 10/31/16 11:02 PTT 25.8 SECONDS (22.9-36.5) 10/31/16 11:02 PTT Comment - 10/31/16 11:02 Bleeding Time 5.3 MINUTES (2.0-8.0) 10/31/16 16:15 Sodium 139 mmol/L (136-145) 11/03/16 03:30 Corrected Sodium 141 mmol/L (136-145) 11/03/16 03:30 Potassium 3.8 mmol/L (3.5-5.1) 11/03/16 03:30 Chloride 108 mmol/L (98-107) H 11/03/16 03:30 Carbon Dioxide 17.6 mmol/L (21-32) L 11/03/16 03:30 BUN 23 mg/dL (7-18) H 11/03/16 03:30 Creatinine 1.45 mg/dL (0.70-1.30) H 11/03/16 03:30 Est GFR (MDRD) Af Amer > 60 (>60) 11/03/16 03:30 Est GFR (MDRD) Non-Af 50 (>60) L 11/03/16 03:30 Glucose 164 mg/dL (65-99) H 11/03/16 03:30 Calcium 8.0 mg/dL (8.5-10.1) L 11/03/16 03:30 Corrected Calcium 9.0 mg/dL (8.5-10.1) 11/01/16 03:35 Total Bilirubin 0.40 mg/dL (0.2-1.0) 11/03/16 03:30 Direct Bilirubin 0.09 mg/dL (0-0.2) 11/03/16 03:30 Indirect Bilirubin 0.31 mg/dL (0.2-0.8) 11/03/16 03:30 AST 24 Units/L (15-37) 11/03/16 03:30 ALT 21 Units/L (12-78) 11/03/16 03:30 Alkaline Phosphatase 69 Units/L (46-116) 11/03/16 03:30 Total Protein 5.9 g/dL (6.4-8.2) L 11/03/16 03:30 Albumin 2.1 g/dL (3.4-5.0) L 11/03/16 03:30 Globulin 3.8 g/dL (2.5-4.5) 11/03/16 03:30 Albumin/Globulin Ratio 0.6 Ratio (1.1-2.1) L 11/03/16 03:30 Specimen Type Catherized urine 10/31/16 18:46 Urine Color Yellow (YELLOW) 10/31/16 18:46 Urine Appearance Hazy (CLEAR) 10/31/16 18:46 Urine pH 5.0 (5.0 - 8.0) 10/31/16 18:46 Ur Specific [place] 1.020 (1.000-1.030) 10/31/16 18:46 Urine Protein 2+ (NEGATIVE) 10/31/16 18:46 Urine Glucose (UA) 1+ (NEGATIVE) 10/31/16 18:46 Urine Ketones Negative (NEGATIVE) 10/31/16 18:46 Urine Occult Blood 3+ (NEGATIVE) 10/31/16 18:46 Urine Nitrite Negative (NEGATIVE) 10/31/16 18:46 Urine Bilirubin Negative (NEGATIVE) 10/31/16 18:46 Urine Urobilinogen Normal (NORMAL) 10/31/16 18:46 Ur Leukocyte Esterase 1+ (NEGATIVE) 10/31/16 18:46 Urine RBC 11-20 /HPF (NEGATIVE) 10/31/16 18:46 Urine WBC 3-5 /HPF (NEGATIVE) 10/31/16 18:46 Ur Squamous Epith Cells Rare /HPF (NEGATIVE) 10/31/16 18:46 Urine Bacteria Trace /HPF (NEGATIVE) 10/31/16 18:46 Ur Culture Indicated? No/not indicated 10/31/16 18:46 Staph aureus (PCR) Positive (NEGATIVE) A 10/31/16 16:10 MRSA (PCR) Positive (NEGATIVE) A 10/31/16 16:10 Blood Type A NEGATIVE 10/31/16 13:37 Antibody Screen Negative 10/31/16 13:37 Crossmatch See Detail 10/31/16 13:37 - Plan (1) S/P hip hemiarthroplasty Status: Acute Plan: CONTINUE WOUND CARE, IV FLUIDS, VANCOMYCIN, DILAUDID, MORPHINE IV, HOLD ASPIRIN, MONITOR. (2) Hypoalbuminemia Status: Acute Plan: START ALBUMIN IV, MONITOR LABS. (3) Fracture of femoral neck, left Status: Acute Qualifiers: Encounter type: initial encounter Fracture type: closed Open fracture type: O Fracture healing: F Qualified Code(s): S72.002A - Fracture of unspecified part of neck of left femur, initial encounter for closed fracture Plan: continue wound care, and DVT prophylaxis. I discussed with the that treatment take a little longer for him to recover with physical therapy than others as a chair.His mental symptoms at this time. She understands and verbalizes same. He continues to have hip precautions. (4) Diabetes mellitus, type 2 Status: Chronic Qualifiers: Diabetes mellitus complication status: without complication Diabetes mellitus complication detail: D Diabetic retinopathy severity: D Proliferative retinopathy type: P Diabetes mellitus macular edema: D Diabetes mellitus halfway insulin use: with terminal gauger supervisor use Laterality: L Chronic kidney disease stage: C Qualified Code(s): E11.9 - Type 2 diabetes mellitus without complications; Z79.4 - terminal worker (current) use of insulin (5) Essential hypertension Status: Chronic (6) History of CVA (cerebrovascular accident) Status: Chronic (7) GERD (gastroesophageal reflux disease) Status: Chronic Qualifiers: Esophagitis presence: esophagitis presence not specified Qualified Code(s) : K21.9 - Gastro-esophageal reflux disease without esophagitis (8) Vascular dementia Status: Chronic Qualifiers: Dementia behavioral disturbance: without behavioral disturbance Qualified Code(s): F01.50 - Vascular dementia without behavioral disturbance (9) Hyperlipidemia Status: Chronic Qualifiers: Hyperlipidemia type: mixed hyperlipidemia Qualified Code(s): E78.2 - Mixed hyperlipidemia (10) BPH (benign prostatic hyperplasia) Status: Chronic Qualifiers: Prostatic enlargement morphology: non-nodular Lower urinary tract symptom presence: symptoms present Qualified Code(s): N40.1 - Benign prostatic hyperplasia with lower urinary tract symptoms
[2016-11-03] MEDS: FLOMAX PO SCH (17:16)
[2016-11-03] MEDS ORDERED: ZANAFLEX PO SCH (17:33)
[2016-11-03] MEDS ORDERED: ZANAFLEX ONE (17:41)
[2016-11-03] MEDS: PERCOCET TAB 5/325 MG PO PRN (17:49)
[2016-11-03] MEDS ORDERED: PHARMACY COMMENT IV SCH (20:45)
[2016-11-03] MEDS ORDERED: PATIENT'S HOME MEDICATION RESPIRATORY (Omeprazole [Prilosec 40 Mg] 40 MG) PO SCH (21:00)
[2016-11-03] MEDS: LIPITOR TAB 20 MG PO SCH (21:18)
[2016-11-03] MEDS: DULCOLAX TAB EC 5 MG PO SCH (21:19)
[2016-11-03] MEDS: ZyrTEC TAB 10 MG PO SCH (21:19)
[2016-11-03] MEDS: PriLOSEC PO SCH (21:19)
[2016-11-03] MEDS: SNACK - Diabetic Appropriate PO SCH (21:24)
[2016-11-03] MEDS ORDERED: D5W 250 ML IV 250 ML IV ONE (21:38)
[2016-11-03] MEDS ORDERED: VANCOMYCIN HCL 1 GM VIAL ONE (21:38)
[2016-11-03] MEDS ORDERED: VANCOMYCIN HCL 500 MG VIAL ONE (21:38)
[2016-11-03] MEDS: VANCOMYCIN HCL 500 MG VIAL 250 MG, VANCOMYCIN HCL 1 GM VIAL 1 GM in D5W 250 ML IV 250 ML IV SCH (21:57)
[2016-11-03] MEDS: RESTORIL CAP 30 MG PO SCH (23:34)
[2016-11-03] MEDS: ZANAFLEX PO SCH (23:35)
[2016-11-04] MEDS: NS 1000 ML 1,000 ML IV SCH (05:54)
[2016-11-04] MEDS: ZANAFLEX PO SCH ×3 (05:56→21:29)
[2016-11-04] MEDS: BACTROBAN OINT TOP SCH ×3 (06:04→21:27)
[2016-11-04 06:35] LABS: ALANINE AMINOTRANSFERASE 27 Units/L (12-78); ALBUMIN 2.2 g/dL (3.4-5.0); ALKALINE PHOSPHATASE 69 Units/L (46-116); ASPARTATE AMINO TRANSFERASE 34 Units/L (15-37); BLOOD UREA NITROGEN 19 mg/dL (7-18); CALCIUM 8.2 mg/dL (8.5-10.1); CARBON DIOXIDE 18.6 mmol/L (21-32); CHLORIDE 109 mmol/L (98-107); CREATININE 1.26 mg/dL (0.70-1.30); GLUCOSE 106 mg/dL (65-99); SODIUM 141 mmol/L (136-145); eGFR BLACK RACES > 60 (>60); eGFR NON BLACK RACES 59 (>60)
[2016-11-04 06:38] LABS: BASOPHILS # (AUTO) 0.1 X10^3/uL (0.0-0.1); BASOPHILS % (AUTO) 0.6 % (0.2-1.0); EOSINOPHILS # (AUTO) 0.5 x10^3/uL (0.0-0.2); EOSINOPHILS % (AUTO) 5.1 % (0.9-2.9); HEMATOCRIT 26.7 % (42.0-54.0); HEMOGLOBIN 9.2 g/dL (13.5-18.0); LYMPHOCYTES # (AUTO) 0.7 X10^3/uL (1.3-2.9); LYMPHOCYTES % (AUTO) 7.4 % (21.0-51.0); MEAN CORPUSCULAR HEMOGLOBIN 29.3 pg (27.0-34.0); MEAN CORPUSCULAR HGB CONC 34.5 g/dL (33.0-35.0); MEAN CORPUSCULAR VOLUME 84.9 fL (80.0-100.0); MEAN PLATELET VOLUME 7.8 fL (7.4-11.0); MONOCYTES # (AUTO) 0.6 x10^3/uL (0.3-0.8); MONOCYTES % (AUTO) 6.4 % (0.0-13.0); NEUTROPHILS # (AUTO) 7.7 x10^3/uL (2.2-4.8); NEUTROPHILS % (AUTO) 80.5 % (42.0-75.0); PLATELET COUNT 141 X10^3/uL (150.0-450.0); RED BLOOD COUNT 3.14 X10^6/uL (4.7-6.0); RED CELL DISTRIBUTION WIDTH 16.1 % (11.6-16.5); WHITE BLOOD COUNT 9.5 X10^3/uL (3.6-10.0)
[2016-11-04] MEDS: PERCOCET TAB 5/325 MG PO PRN (06:51)
[2016-11-04] MEDS ORDERED: ZOLOFT PO ONE ×3 (09:09→21:03)
[2016-11-04] MEDS: LEVEMIR SC SCH ×2 (09:35→21:40)
[2016-11-04] MEDS: MIRALAX POWDER (1 DOSE 17GM) PO SCH (09:37)
[2016-11-04] MEDS: MILK OF MAGNESIA PO SCH ×4 (09:37→21:27)
[2016-11-04] MEDS: PriLOSEC PO SCH ×2 (09:37→21:28)
[2016-11-04] MEDS: SINGULAIR TAB 10 MG PO SCH (09:37)
[2016-11-04] MEDS: HEMOCYTE-PLUS PO SCH (09:37)
[2016-11-04] MEDS: MEGACE PO SCH (09:38)
[2016-11-04] MEDS: LOPRESSOR TAB 50 MG PO SCH ×2 (09:38→21:41)
[2016-11-04] MEDS: NORVASC TAB 5 MG PO SCH ×2 (09:38→21:41)
[2016-11-04] MEDS: AMARYL TAB 4 MG PO SCH (09:38)
[2016-11-04] MEDS: LOVENOX INJ 30 MG SYR SC SCH (09:38)
[2016-11-04] MEDS: SYNTHROID 50 mcg TAB PO SCH (09:38)
[2016-11-04] MEDS: ALBUMIN HUMAN 25%- 100ML 100 ML IV SCH (09:39)
[2016-11-04] MEDS: FLONASE NASAL SPRAY ENOSTRIL SCH ×2 (09:40→21:27)
[2016-11-04] MEDS: ERYTHROMYCIN STEARATE 250 MG TAB PO SCH ×2 (09:43→21:39)
[2016-11-04] MEDS: ZOLOFT PO SCH ×2 (09:47→21:29)
[2016-11-04] MEDS: HumuLIN R SUBCUT PRN (11:29)
--- NOTE | 2016-11-04 15:19 | PCM.PROG ---
Progress Note - Progress Note for Day of Date: 11/04/16 - Subjective Subjective: PATIENT IS POST-OP DAY THREE FOR LEFT HIP HEMIARTHROPLASTY PER DR. STYLES. PATIENT IS RESTING WITH EYES CLOSED UPON ROUNDS. AT BEDSIDE. PATIENT HAD SOME MUSCLE SPASMS YESTERDAY AND ZANAFLEX WAS ADDED. PATIENT'S PAIN IS CONTROLLED WITH IV DILAUDID. PHYSICAL THERAPY CONTINUES TO PROGRESS VERY SLOWLY DUE TO PATIENT'S INABILITY TO FOLLOW INSTRUCTIONS DUE TO MENTAL DELAY FROM PRIOR CVA. DRESSING TO LEFT HIP IS DRY AND INTACT. PEDAL PULSES POSITIVE BILATERALLY. PATIENT CONTINUES ON IV VANCOMYCIN AND BACTROBAN OINTMENT FOR POSITIVE NOSE CULTURES WITH STAPH AND MRSA. LUNGS CLEAR TO AUSCULTATION. WE DISCUSS SHORT-TERM REHAB AT [facility] FOR FURTHER AND MORE AGGRESSIVE PHYSICAL THERAPY. VOICES UNDERSTANDING AND IS IN AGREEMENT. CBC WNL EXCEPT: H/H 9.2/26.7, PLT COUNT 141. CMP WNL EXCEPT: CHL 109, BUN 19, GLUCOSE 106, CALCIUM 8.2. WE WILL CONTINUE PAIN MANAGMENT, PHYSICAL THERAPY, AND CONTINUE TO FOLLOW SURGERY. WE WILL FOLLOW UP IN AM WITH LABS. - Past Medical Family Social History Past Med/Fam/Surg Hx: No changes since H&P Allergies: Allergies No Known Drug Allergy Allergy (Verified 10/31/16 10:46) - Review of Systems ROS: No change since H&P - Vital Signs and I&O's Vital Signs: Temperature 97.9 F Pulse Rate [Left Brachial] 83 Pulse Rate [Right Brachial] 83 Pulse Rate 81 Respiratory Rate 18 Blood Pressure [Right Arm] 99/60 Blood Pressure [Left Arm] 125/62 Blood Pressure 130/68 O2 Sat by Pulse Oximetry 99 Intake and Output: Intake & Output 11/02/16 11/03/16 11/04/16 11/05/16 11:59 11:59 11:59 11:59 Intake Total 1153 1106 2419 240 Output Total 1541 456 1124 200 Balance -47 306 -231 40 - Physical Exam Oriented: Normal, Person, Unable to test (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 negative: Blurred Vision, Diplopia, Discharge, Pain, Redness, Photophobia Ear: Normal. negative: Swelling, Ecchymosis, Hemotypanum, Abrasion, Laceration Nose: Normal. negative: Injected, Discharge, Blood Throat: Normal. negative: Tonsillar Hypertrophy, Red, Exudate Respiratory: Normal Cardiovascular: Normal. negative: Murmur, Edema : Normal. negative: Dysuria, Hematuria, Frequency, Discharge, Testicular Pain Auscultation: Bowel Sounds: Normal. negative: Bruit Palpation: Normal. negative: Spleen Enlarged, Liver Enlarged, Mass Pulsatile Tenderness: Normal. negative: Rebound, Guarding, Rigidity Skin: Wound (Surgical Incision to Left Hip - dressing dry and intact). negative : Diaphoresis, Bruising, Ecchymosis Musculoskeletal: Left, Hip, Tender. negative: Pulse Deficit Psychiatric: Normal Mood Description: Calm, Appropriate Affect: Normal Speech Pattern: Delayed, Aphasic - Laboratory and Diagnostics Result Diagrams: 11/04/16 03:20 11/04/16 03:20 Labs: 10/31/16 18:46 Urine,Catheterized Urine Culture - Final 10/31/16 19:15 Blood Blood Culture - Preliminary 10/31/16 19:15 Blood Blood Culture - Preliminary Laboratory WBC 9.5 X10^3/uL (3.6-10.0) 11/04/16 03:20 RBC 3.14 X10^6/uL (4.7-6.0) L 11/04/16 03:20 Hgb 9.2 g/dL (13.5-18.0) L 11/04/16 03:20 Hct 26.7 % (42.0-54.0) L 11/04/16 03:20 MCV 84.9 fL (80.0-100.0) 11/04/16 03:20 MCH 29.3 pg (27.0-34.0) 11/04/16 03:20 MCHC 34.5 g/dL (33.0-35.0) 11/04/16 03:20 RDW 16.1 % (11.6-16.5) 11/04/16 03:20 Plt Count 141 X10^3/uL (150.0-450.0) L 11/04/16 03:20 MPV 7.8 fL (7.4-11.0) 11/04/16 03:20 Neut % 80.5 % (42.0-75.0) H 11/04/16 03:20 Lymph % 7.4 % (21.0-51.0) L 11/04/16 03:20 [place] % 6.4 % (0.0-13.0) 11/04/16 03:20 Eos % 5.1 % (0.9-2.9) H 11/04/16 03:20 Baso % 0.6 % (0.2-1.0) 11/04/16 03:20 Neut # 7.7 x10^3/uL (2.2-4.8) H 11/04/16 03:20 Lymph # 0.7 X10^3/uL (1.3-2.9) L 11/04/16 03:20 [place] # 0.6 x10^3/uL (0.3-0.8) 11/04/16 03:20 Eos # 0.5 x10^3/uL (0.0-0.2) H 11/04/16 03:20 Baso # 0.1 X10^3/uL (0.0-0.1) 11/04/16 03:20 Absolute Nucleated RBC 0.1 /100WBC 11/04/16 03:20 INR Target Range - 10/31/16 11:02 INR 1.22 (0.8-1.3) 10/31/16 11:02 PTT 25.8 SECONDS (22.9-36.5) 10/31/16 11:02 PTT Comment - 10/31/16 11:02 Bleeding Time 5.3 MINUTES (2.0-8.0) 10/31/16 16:15 Sodium 141 mmol/L (136-145) 11/04/16 03:20 Corrected Sodium TNP 11/04/16 03:20 Potassium 3.7 mmol/L (3.5-5.1) 11/04/16 03:20 Chloride 109 mmol/L (98-107) H 11/04/16 03:20 Carbon Dioxide 18.6 mmol/L (21-32) L 11/04/16 03:20 BUN 19 mg/dL (7-18) H 11/04/16 03:20 Creatinine 1.26 mg/dL (0.70-1.30) 11/04/16 03:20 Est GFR (MDRD) Af Amer > 60 (>60) 11/04/16 03:20 Est GFR (MDRD) Non-Af 59 (>60) 11/04/16 03:20 Glucose 106 mg/dL (65-99) H 11/04/16 03:20 Calcium 8.2 mg/dL (8.5-10.1) L 11/04/16 03:20 Corrected Calcium 9.0 mg/dL (8.5-10.1) 11/01/16 03:35 Total Bilirubin 0.50 mg/dL (0.2-1.0) 11/04/16 03:20 Direct Bilirubin 0.10 mg/dL (0-0.2) 11/04/16 03:20 Indirect Bilirubin 0.40 mg/dL (0.2-0.8) 11/04/16 03:20 AST 34 Units/L (15-37) 11/04/16 03:20 ALT 27 Units/L (12-78) 11/04/16 03:20 Alkaline Phosphatase 69 Units/L (46-116) 11/04/16 03:20 Total Protein 6.0 g/dL (6.4-8.2) L 11/04/16 03:20 Albumin 2.2 g/dL (3.4-5.0) L 11/04/16 03:20 Globulin 3.8 g/dL (2.5-4.5) 11/04/16 03:20 Albumin/Globulin Ratio 0.6 Ratio (1.1-2.1) L 11/04/16 03:20 Specimen Type Catherized urine 10/31/16 18:46 Urine Color Yellow (YELLOW) 10/31/16 18:46 Urine Appearance Hazy (CLEAR) 10/31/16 18:46 Urine pH 5.0 (5.0 - 8.0) 10/31/16 18:46 Ur Specific [place] 1.020 (1.000-1.030) 10/31/16 18:46 Urine Protein 2+ (NEGATIVE) 10/31/16 18:46 Urine Glucose (UA) 1+ (NEGATIVE) 10/31/16 18:46 Urine Ketones Negative (NEGATIVE) 10/31/16 18:46 Urine Occult Blood 3+ (NEGATIVE) 10/31/16 18:46 Urine Nitrite Negative (NEGATIVE) 10/31/16 18:46 Urine Bilirubin Negative (NEGATIVE) 10/31/16 18:46 Urine Urobilinogen Normal (NORMAL) 10/31/16 18:46 Ur Leukocyte Esterase 1+ (NEGATIVE) 10/31/16 18:46 Urine RBC 11-20 /HPF (NEGATIVE) 10/31/16 18:46 Urine WBC 3-5 /HPF (NEGATIVE) 10/31/16 18:46 Ur Squamous Epith Cells Rare /HPF (NEGATIVE) 10/31/16 18:46 Urine Bacteria Trace /HPF (NEGATIVE) 10/31/16 18:46 Ur Culture Indicated? No/not indicated 10/31/16 18:46 Staph aureus (PCR) Positive (NEGATIVE) A 10/31/16 16:10 MRSA (PCR) Positive (NEGATIVE) A 10/31/16 16:10 Blood Type A NEGATIVE 10/31/16 13:37 Antibody Screen Negative 10/31/16 13:37 Crossmatch See Detail 10/31/16 13:37 - Plan (1) S/P hip hemiarthroplasty Status: Acute Plan: CONTINUE WOUND CARE, IV FLUIDS, VANCOMYCIN, DILAUDID, MORPHINE IV, HOLD ASPIRIN, MONITOR. (2) Hypoalbuminemia Status: Acute Plan: CONTINUE ALBUMIN IV, MONITOR LABS. (3) Fracture of femoral neck, left Status: Acute Qualifiers: Encounter type: initial encounter Fracture type: closed Open fracture type: O Fracture healing: F Qualified Code(s): S72.002A - Fracture of unspecified part of neck of left femur, initial encounter for closed fracture Plan: ABOVE. (4) Diabetes mellitus, type 2 Status: Chronic Qualifiers: Diabetes mellitus complication status: without complication Diabetes mellitus complication detail: D Diabetic retinopathy severity: D Proliferative retinopathy type: P Diabetes mellitus macular edema: D Diabetes mellitus halfway insulin use: with local company intermodal truck driver use Laterality: L Chronic kidney disease stage: C Qualified Code(s): E11.9 - Type 2 diabetes mellitus without complications; Z79.4 - terminal gauger supervisor (current) use of insulin (5) Essential hypertension Status: Chronic (6) History of CVA (cerebrovascular accident) Status: Chronic (7) GERD (gastroesophageal reflux disease) Status: Chronic Qualifiers: Esophagitis presence: esophagitis presence not specified Qualified Code(s) : K21.9 - Gastro-esophageal reflux disease without esophagitis (8) Vascular dementia Status: Chronic Qualifiers: Dementia behavioral disturbance: without behavioral disturbance Qualified Code(s): F01.50 - Vascular dementia without behavioral disturbance (9) Hyperlipidemia Status: Chronic Qualifiers: Hyperlipidemia type: mixed hyperlipidemia Qualified Code(s): E78.2 - Mixed hyperlipidemia (10) BPH (benign prostatic hyperplasia) Status: Chronic Qualifiers: Prostatic enlargement morphology: non-nodular Lower urinary tract symptom presence: symptoms present Qualified Code(s): N40.1 - Benign prostatic hyperplasia with lower urinary tract symptoms
[2016-11-04] MEDS: FLOMAX PO SCH (17:43)
[2016-11-04] MEDS: DULCOLAX TAB EC 5 MG PO SCH (21:28)
[2016-11-04] MEDS: LIPITOR TAB 20 MG PO SCH (21:29)
[2016-11-04] MEDS: ZyrTEC TAB 10 MG PO SCH (21:29)
[2016-11-04] MEDS: RESTORIL CAP 30 MG PO SCH (21:29)
[2016-11-04] MEDS: COLACE CAP 100 MG PO SCH (21:29)
[2016-11-04] MEDS: SNACK - Diabetic Appropriate PO SCH (21:36)
[2016-11-04] MEDS: VANCOMYCIN HCL 500 MG VIAL 250 MG, VANCOMYCIN HCL 1 GM VIAL 1 GM in D5W 250 ML IV 250 ML IV SCH (22:21)
[2016-11-05] MEDS: BACTROBAN OINT TOP SCH ×3 (05:47→21:00)
[2016-11-05] MEDS: ZANAFLEX PO SCH ×3 (05:47→21:01)
[2016-11-05 06:18] LABS: BASOPHILS % (AUTO) 0.5 % (0.2-1.0); EOSINOPHILS # (AUTO) 0.4 x10^3/uL (0.0-0.2); EOSINOPHILS % (AUTO) 4.1 % (0.9-2.9); HEMOGLOBIN 9.5 g/dL (13.5-18.0); LYMPHOCYTES # (AUTO) 0.6 X10^3/uL (1.3-2.9); LYMPHOCYTES % (AUTO) 6.6 % (21.0-51.0); MEAN CORPUSCULAR HEMOGLOBIN 28.4 pg (27.0-34.0); MEAN CORPUSCULAR VOLUME 83.4 fL (80.0-100.0); MEAN PLATELET VOLUME 7.5 fL (7.4-11.0); MONOCYTES # (AUTO) 0.5 x10^3/uL (0.3-0.8); MONOCYTES % (AUTO) 5.1 % (0.0-13.0); NEUTROPHILS # (AUTO) 7.7 x10^3/uL (2.2-4.8); NEUTROPHILS % (AUTO) 83.7 % (42.0-75.0); PLATELET COUNT 167 X10^3/uL (150.0-450.0); RED BLOOD COUNT 3.35 X10^6/uL (4.7-6.0); WHITE BLOOD COUNT 9.1 X10^3/uL (3.6-10.0)
[2016-11-05 06:35] LABS: ALANINE AMINOTRANSFERASE 80 Units/L (12-78); ALBUMIN 2.4 g/dL (3.4-5.0); ALKALINE PHOSPHATASE 74 Units/L (46-116); ASPARTATE AMINO TRANSFERASE 104 Units/L (15-37); BLOOD UREA NITROGEN 18 mg/dL (7-18); CALCIUM 8.1 mg/dL (8.5-10.1); CARBON DIOXIDE 18.8 mmol/L (21-32); CHLORIDE 109 mmol/L (98-107); COR CA(FOR HYPOALB) 9.4 mg/dL (8.5-10.1); CREATININE 1.26 mg/dL (0.70-1.30); GLUCOSE 106 mg/dL (65-99); SODIUM 141 mmol/L (136-145); TOTAL PROTEIN 6.3 g/dL (6.4-8.2); eGFR BLACK RACES > 60 (>60); eGFR NON BLACK RACES 59 (>60)
[2016-11-05] MEDS ORDERED: ZOLOFT PO ONE ×2 (08:32→20:16)
[2016-11-05] MEDS: LOVENOX INJ 30 MG SYR SC SCH (09:12)
[2016-11-05] MEDS: ALBUMIN HUMAN 25%- 100ML 100 ML IV SCH (09:12)
[2016-11-05] MEDS: MILK OF MAGNESIA PO SCH ×4 (09:13→20:57)
[2016-11-05] MEDS: ERYTHROMYCIN STEARATE 250 MG TAB PO SCH ×2 (09:13→20:44)
[2016-11-05] MEDS: PriLOSEC PO SCH ×2 (09:14→20:47)
[2016-11-05] MEDS: HEMOCYTE-PLUS PO SCH (09:14)
[2016-11-05] MEDS: COLACE CAP 100 MG PO SCH ×2 (09:14→20:44)
[2016-11-05] MEDS: SINGULAIR TAB 10 MG PO SCH (09:14)
[2016-11-05] MEDS: LOPRESSOR TAB 50 MG PO SCH ×2 (09:14→20:44)
[2016-11-05] MEDS: NORVASC TAB 5 MG PO SCH ×2 (09:14→20:47)
[2016-11-05] MEDS: PERCOCET TAB 5/325 MG PO PRN ×2 (09:14→14:01)
[2016-11-05] MEDS: SYNTHROID 50 mcg TAB PO SCH (09:14)
[2016-11-05] MEDS: ZOLOFT PO SCH ×2 (09:14→20:44)
[2016-11-05] MEDS: MEGACE PO SCH (09:15)
[2016-11-05] MEDS: MIRALAX POWDER (1 DOSE 17GM) PO SCH (09:15)
[2016-11-05] MEDS: FLONASE NASAL SPRAY ENOSTRIL SCH ×2 (09:15→20:48)
[2016-11-05] MEDS: FLOMAX PO SCH (17:58)
[2016-11-05] MEDS: HumuLIN R SUBCUT PRN (18:29)
[2016-11-05] MEDS: NS 1000 ML 1,000 ML IV SCH (19:53)
[2016-11-05] MEDS: LIPITOR TAB 20 MG PO SCH (20:44)
[2016-11-05] MEDS: RESTORIL CAP 30 MG PO SCH (20:44)
[2016-11-05] MEDS: DULCOLAX TAB EC 5 MG PO SCH (20:46)
[2016-11-05] MEDS: ZyrTEC TAB 10 MG PO SCH (20:47)
[2016-11-05] MEDS: SNACK - Diabetic Appropriate PO SCH (20:58)
[2016-11-05] MEDS: LEVEMIR SC SCH (20:59)
[2016-11-05 21:15] LABS: CREATININE 1.32 mg/dL (0.70-1.30); VANCOMYCIN,TROUGH 19.1 ug/mL (15-20)
[2016-11-05] MEDS: VANCOMYCIN HCL 500 MG VIAL 250 MG, VANCOMYCIN HCL 1 GM VIAL 1 GM in D5W 250 ML IV 250 ML IV SCH (22:26)
[2016-11-06] MEDS: NS 1000 ML 1,000 ML IV SCH ×3 (01:55→13:00)
[2016-11-06] MEDS: MORPHINE SULFATE INJ 2 MG IVP PRN ×2 (03:34→11:15)
[2016-11-06 05:24] LABS: BASOPHILS % (AUTO) 0.4 % (0.2-1.0); EOSINOPHILS # (AUTO) 0.4 x10^3/uL (0.0-0.2); HEMATOCRIT 25.9 % (42.0-54.0); HEMOGLOBIN 8.8 g/dL (13.5-18.0); LYMPHOCYTES # (AUTO) 0.7 X10^3/uL (1.3-2.9); LYMPHOCYTES % (AUTO) 7.9 % (21.0-51.0); MEAN CORPUSCULAR HEMOGLOBIN 28.6 pg (27.0-34.0); MEAN CORPUSCULAR HGB CONC 33.9 g/dL (33.0-35.0); MEAN CORPUSCULAR VOLUME 84.4 fL (80.0-100.0); MEAN PLATELET VOLUME 7.1 fL (7.4-11.0); MONOCYTES # (AUTO) 0.6 x10^3/uL (0.3-0.8); MONOCYTES % (AUTO) 5.8 % (0.0-13.0); NEUTROPHILS # (AUTO) 7.8 x10^3/uL (2.2-4.8); NEUTROPHILS % (AUTO) 81.9 % (42.0-75.0); PLATELET COUNT 168 X10^3/uL (150.0-450.0); RED BLOOD COUNT 3.07 X10^6/uL (4.7-6.0); RED CELL DISTRIBUTION WIDTH 16.5 % (11.6-16.5); WHITE BLOOD COUNT 9.5 X10^3/uL (3.6-10.0)
[2016-11-06 05:38] LABS: ALANINE AMINOTRANSFERASE 91 Units/L (12-78); ALBUMIN 2.5 g/dL (3.4-5.0); ALKALINE PHOSPHATASE 74 Units/L (46-116); ASPARTATE AMINO TRANSFERASE 96 Units/L (15-37); BLOOD UREA NITROGEN 17 mg/dL (7-18); CALCIUM 8.2 mg/dL (8.5-10.1); CARBON DIOXIDE 19.2 mmol/L (21-32); CHLORIDE 110 mmol/L (98-107); COR CA(FOR HYPOALB) 9.4 mg/dL (8.5-10.1); COR NA(FOR HYPERGLY) 143 mmol/L (136-145); CREATININE 1.16 mg/dL (0.70-1.30); GLUCOSE 128 mg/dL (65-99); SODIUM 142 mmol/L (136-145); TOTAL PROTEIN 6.3 g/dL (6.4-8.2); eGFR BLACK RACES > 60 (>60); eGFR NON BLACK RACES > 60 (>60)
[2016-11-06] MEDS: BACTROBAN OINT TOP SCH ×3 (05:59→21:54)
[2016-11-06] MEDS: ZANAFLEX PO SCH ×3 (06:01→21:49)
[2016-11-06] MEDS ORDERED: ZOLOFT PO ONE ×2 (08:45→21:44)
[2016-11-06] MEDS: ALBUMIN HUMAN 25%- 100ML 100 ML IV SCH (09:28)
[2016-11-06] MEDS: ERYTHROMYCIN STEARATE 250 MG TAB PO SCH ×2 (09:33→21:56)
[2016-11-06] MEDS: ZOLOFT PO SCH ×2 (09:34→21:49)
[2016-11-06] MEDS: MEGACE PO SCH (09:34)
[2016-11-06] MEDS: NORVASC TAB 5 MG PO SCH ×2 (09:34→21:49)
[2016-11-06] MEDS: COLACE CAP 100 MG PO SCH ×2 (09:34→21:52)
[2016-11-06] MEDS: HEMOCYTE-PLUS PO SCH (09:34)
[2016-11-06] MEDS: PriLOSEC PO SCH ×2 (09:34→21:52)
[2016-11-06] MEDS: MILK OF MAGNESIA PO SCH ×5 (09:35→22:02)
[2016-11-06] MEDS: SYNTHROID 50 mcg TAB PO SCH (09:35)
[2016-11-06] MEDS: SINGULAIR TAB 10 MG PO SCH (09:35)
[2016-11-06] MEDS: LOPRESSOR TAB 50 MG PO SCH ×3 (09:35→21:49)
[2016-11-06] MEDS: FLONASE NASAL SPRAY ENOSTRIL SCH ×2 (09:36→21:54)
[2016-11-06] MEDS: LOVENOX INJ 30 MG SYR SC SCH (09:36)
[2016-11-06] MEDS: MIRALAX POWDER (1 DOSE 17GM) PO SCH (09:37)
[2016-11-06] MEDS: HALDOL INJ IM PRN (11:19)
[2016-11-06] MEDS: FLOMAX PO SCH ×2 (15:48→18:29)
[2016-11-06] MEDS: SNACK - Diabetic Appropriate PO SCH (21:45)
[2016-11-06] MEDS: RESTORIL CAP 30 MG PO SCH (21:49)
[2016-11-06] MEDS: LIPITOR TAB 20 MG PO SCH (21:51)
[2016-11-06] MEDS: DULCOLAX TAB EC 5 MG PO SCH (21:51)
[2016-11-06] MEDS: ZyrTEC TAB 10 MG PO SCH (21:52)
[2016-11-06] MEDS: VANCOMYCIN HCL 500 MG VIAL 250 MG, VANCOMYCIN HCL 1 GM VIAL 1 GM in D5W 250 ML IV 250 ML IV SCH (21:57)
[2016-11-06] MEDS: LEVEMIR SC SCH (22:01)
[2016-11-07] MEDS: PERCOCET TAB 5/325 MG PO PRN ×3 (01:39→16:46)
[2016-11-07 05:14] LABS: BASOPHILS # (AUTO) 0.1 X10^3/uL (0.0-0.1); BASOPHILS % (AUTO) 1.1 % (0.2-1.0); EOSINOPHILS # (AUTO) 0.5 x10^3/uL (0.0-0.2); HEMATOCRIT 26.3 % (42.0-54.0); HEMOGLOBIN 8.7 g/dL (13.5-18.0); LYMPHOCYTES # (AUTO) 1.2 X10^3/uL (1.3-2.9); LYMPHOCYTES % (AUTO) 9.6 % (21.0-51.0); MEAN CORPUSCULAR HEMOGLOBIN 27.8 pg (27.0-34.0); MEAN CORPUSCULAR VOLUME 84.2 fL (80.0-100.0); MONOCYTES # (AUTO) 0.7 x10^3/uL (0.3-0.8); MONOCYTES % (AUTO) 5.9 % (0.0-13.0); NEUTROPHILS # (AUTO) 9.6 x10^3/uL (2.2-4.8); NEUTROPHILS % (AUTO) 79.4 % (42.0-75.0); PLATELET COUNT 170 X10^3/uL (150.0-450.0); RED BLOOD COUNT 3.13 X10^6/uL (4.7-6.0); RED CELL DISTRIBUTION WIDTH 16.5 % (11.6-16.5)
[2016-11-07 05:24] LABS: WHITE BLOOD COUNT 13.3 X10^3/uL (3.6-10.0)
[2016-11-07 05:31] LABS: ALANINE AMINOTRANSFERASE 168 Units/L (12-78); ALBUMIN 2.7 g/dL (3.4-5.0); ALKALINE PHOSPHATASE 76 Units/L (46-116); ASPARTATE AMINO TRANSFERASE 201 Units/L (15-37); BLOOD UREA NITROGEN 16 mg/dL (7-18); CALCIUM 8.3 mg/dL (8.5-10.1); CARBON DIOXIDE 18.3 mmol/L (21-32); CHLORIDE 109 mmol/L (98-107); COR CA(FOR HYPOALB) 9.3 mg/dL (8.5-10.1); CREATININE 1.23 mg/dL (0.70-1.30); GLUCOSE 109 mg/dL (65-99); SODIUM 141 mmol/L (136-145); TOTAL PROTEIN 6.5 g/dL (6.4-8.2); eGFR BLACK RACES > 60 (>60); eGFR NON BLACK RACES > 60 (>60)
[2016-11-07 05:46] LABS: PLATELET MORPHOLOGY COMMENT NORMAL (NORMAL)
[2016-11-07] MEDS: ZANAFLEX PO SCH ×4 (06:01→21:18)
[2016-11-07] MEDS: BACTROBAN OINT TOP SCH ×3 (06:07→21:22)
[2016-11-07] MEDS ORDERED: ZOLOFT PO ONE ×2 (08:51→20:42)
--- NOTE | 2016-11-07 10:03 | PCM.PROG ---
Progress Note - Progress Note for Day of Date: 11/06/16 - Subjective Subjective: patient was seen today. Patient lying down in bed. Limb in abduction pillow. Scott with the left hip. Dressing intact. No history of fever chills or rigors. Patient does still uncooperative with physical therapy. Again counseled regarding the importance of physical therapy. Reported to him that the x-rays implants Leander is looking fine. He needs to start walking. - Past Medical Family Social History Past Med/Fam/Surg Hx: No changes since H&P Allergies: Allergies No Known Drug Allergy Allergy (Verified 10/31/16 10:46) - Review of Systems ROS: No change since H&P - Vital Signs and I&O's Vital Signs: Temperature 98.5 F Pulse Rate [Left Brachial] 73 Pulse Rate [Right Brachial] 82 Pulse Rate 84 Respiratory Rate 16 Blood Pressure [Right Arm] 137/63 Blood Pressure [Left Arm] 155/72 Blood Pressure 130/68 O2 Sat by Pulse Oximetry 97 Intake and Output: Intake & Output 11/04/16 11/05/16 11/06/16 11/07/16 11:59 11:59 11:59 11:59 Intake Total 2419 1286 1702 1065 Output Total 2650 1300 2450 [facility]631 -[phone] - Physical Exam Oriented: Normal, Person, Unable to test (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 negative: Blurred Vision, Diplopia, Discharge, Pain, Redness, Photophobia Ear: Normal. negative: Swelling, Ecchymosis, Hemotypanum, Abrasion, Laceration Nose: Normal. negative: Injected, Discharge, Blood Throat: Normal. negative: Tonsillar Hypertrophy, Red, Exudate Respiratory: Normal Cardiovascular: Normal. negative: Murmur, Edema : Normal. negative: Dysuria, Hematuria, Frequency, Discharge, Testicular Pain Auscultation: Bowel Sounds: Normal. negative: Bruit Tenderness: Normal. negative: Rebound, Guarding, Rigidity Skin: Wound (Surgical Incision to Left Hip - dressing dry and intact). negative : Diaphoresis, Bruising, Ecchymosis Musculoskeletal: Left, Hip, Tender. negative: Pulse Deficit Psychiatric: Normal Mood Description: Calm, Appropriate Affect: Normal Speech Pattern: Clear, Appropriate - Laboratory and Diagnostics Result Diagrams: 11/07/16 03:40 11/07/16 03:40 Labs: 10/31/16 19:15 Blood Blood Culture - Final 10/31/16 19:15 Blood Blood Culture - Final 10/31/16 18:46 Urine,Catheterized Urine Culture - Final Laboratory WBC 13.3 X10^3/uL (3.6-10.0) H 11/07/16 03:40 RBC 3.13 X10^6/uL (4.7-6.0) L 11/07/16 03:40 Hgb 8.7 g/dL (13.5-18.0) L 11/07/16 03:40 Hct 26.3 % (42.0-54.0) L 11/07/16 03:40 MCV 84.2 fL (80.0-100.0) 11/07/16 03:40 MCH 27.8 pg (27.0-34.0) 11/07/16 03:40 MCHC 33.0 g/dL (33.0-35.0) 11/07/16 03:40 RDW 16.5 % (11.6-16.5) 11/07/16 03:40 Plt Count 170 X10^3/uL (150.0-450.0) 11/07/16 03:40 Plt Count Comment Adequate (ADEQUATE) 11/07/16 03:40 MPV 8.0 fL (7.4-11.0) 11/07/16 03:40 Neut % 79.4 % (42.0-75.0) H 11/07/16 03:40 Lymph % 9.6 % (21.0-51.0) L 11/07/16 03:40 Dubois % 5.9 % (0.0-13.0) 11/07/16 03:40 Eos % 4.0 % (0.9-2.9) H 11/07/16 03:40 Baso % 1.1 % (0.2-1.0) H 11/07/16 03:40 Neut # 9.6 x10^3/uL (2.2-4.8) H 11/07/16 03:40 Lymph # 1.2 X10^3/uL (1.3-2.9) L 11/07/16 03:40 Dubois # 0.7 x10^3/uL (0.3-0.8) 11/07/16 03:40 Eos # 0.5 x10^3/uL (0.0-0.2) H 11/07/16 03:40 Baso # 0.1 X10^3/uL (0.0-0.1) 11/07/16 03:40 Absolute Nucleated RBC 0.2 /100WBC 11/07/16 03:40 Total Counted Cancelled 11/07/16 03:40 Neutrophils % (Manual) Cancelled 11/07/16 03:40 Band Neutrophils % Cancelled 11/07/16 03:40 Lymphocytes % (Manual) Cancelled 11/07/16 03:40 Monocytes % (Manual) Cancelled 11/07/16 03:40 Eosinophils % (Manual) Cancelled 11/07/16 03:40 Basophils % (Manual) Cancelled 11/07/16 03:40 Metamyelocytes % Cancelled 11/07/16 03:40 Myelocytes % Cancelled 11/07/16 03:40 Promyelocytes % Cancelled 11/07/16 03:40 Nucleated RBCs Cancelled 11/07/16 03:40 Atypical Lymphocytes Cancelled 11/07/16 03:40 Blast Cells Cancelled 11/07/16 03:40 Smudge Cells Cancelled 11/07/16 03:40 Toxic Granulation Cancelled 11/07/16 03:40 Dohle Bodies Cancelled 11/07/16 03:40 Mickey Rods Cancelled 11/07/16 03:40 Plt Clumps, EDTA Cancelled 11/07/16 03:40 Giant Platelets Cancelled 11/07/16 03:40 Plt Morphology Comment Normal (NORMAL) 11/07/16 03:40 RBC Morphology Normal (NORMAL) 11/07/16 03:40 Dimorphic RBCs Cancelled 11/07/16 03:40 Polychromasia Cancelled 11/07/16 03:40 Hypochromasia Cancelled 11/07/16 03:40 Poikilocytosis Cancelled 11/07/16 03:40 Basophilic Stippling Cancelled 11/07/16 03:40 Anisocytosis Cancelled 11/07/16 03:40 Microcytosis Cancelled 11/07/16 03:40 Macrocytosis Cancelled 11/07/16 03:40 Spherocytes Cancelled 11/07/16 03:40 Pappenheimer Bodies Cancelled 11/07/16 03:40 Sickle Cells Cancelled 11/07/16 03:40 Target Cells Cancelled 11/07/16 03:40 Tear Drop Cells Cancelled 11/07/16 03:40 Ovalocytes Cancelled 11/07/16 03:40 Stomatocytes Cancelled 11/07/16 03:40 Helmet Cells Cancelled 11/07/16 03:40 [place] Bodies Cancelled 11/07/16 03:40 Perry Rings Cancelled 11/07/16 03:40 Grover Cells Cancelled 11/07/16 03:40 Crenated Cell Cancelled 11/07/16 03:40 Acanthocytes (Spur) Cancelled 11/07/16 03:40 Rouleaux Cancelled 11/07/16 03:40 Schistocytes Cancelled 11/07/16 03:40 INR Target Range - 10/31/16 11:02 INR 1.22 (0.8-1.3) 10/31/16 11:02 PTT 25.8 SECONDS (22.9-36.5) 10/31/16 11:02 PTT Comment - 10/31/16 11:02 Bleeding Time 5.3 MINUTES (2.0-8.0) 10/31/16 16:15 Sodium 141 mmol/L (136-145) 11/07/16 03:40 Corrected Sodium TNP 11/07/16 03:40 Potassium 4.4 mmol/L (3.5-5.1) 11/07/16 03:40 Chloride 109 mmol/L (98-107) H 11/07/16 03:40 Carbon Dioxide 18.3 mmol/L (21-32) L 11/07/16 03:40 BUN 16 mg/dL (7-18) 11/07/16 03:40 Creatinine 1.23 mg/dL (0.70-1.30) 11/07/16 03:40 Est GFR (MDRD) Af Amer > 60 (>60) 11/07/16 03:40 Est GFR (MDRD) Non-Af > 60 (>60) 11/07/16 03:40 Glucose 109 mg/dL (65-99) H 11/07/16 03:40 Calcium 8.3 mg/dL (8.5-10.1) L 11/07/16 03:40 Corrected Calcium 9.3 mg/dL (8.5-10.1) 11/07/16 03:40 Total Bilirubin 0.50 mg/dL (0.2-1.0) 11/07/16 03:40 Direct Bilirubin 0.10 mg/dL (0-0.2) 11/04/16 03:20 Indirect Bilirubin 0.40 mg/dL (0.2-0.8) 11/04/16 03:20 AST 201 Units/L (15-37) H 11/07/16 03:40 ALT 168 Units/L (12-78) H 11/07/16 03:40 Alkaline Phosphatase 76 Units/L (46-116) 11/07/16 03:40 Total Protein 6.5 g/dL (6.4-8.2) 11/07/16 03:40 Albumin 2.7 g/dL (3.4-5.0) L 11/07/16 03:40 Globulin 3.8 g/dL (2.5-4.5) 11/07/16 03:40 Albumin/Globulin Ratio 0.7 Ratio (1.1-2.1) L 11/07/16 03:40 Specimen Type Catherized urine 10/31/16 18:46 Urine Color Yellow (YELLOW) 10/31/16 18:46 Urine Appearance Hazy (CLEAR) 10/31/16 18:46 Urine pH 5.0 (5.0 - 8.0) 10/31/16 18:46 Ur Specific [place] 1.020 (1.000-1.030) 10/31/16 18:46 Urine Protein 2+ (NEGATIVE) 10/31/16 18:46 Urine Glucose (UA) 1+ (NEGATIVE) 10/31/16 18:46 Urine Ketones Negative (NEGATIVE) 10/31/16 18:46 Urine Occult Blood 3+ (NEGATIVE) 10/31/16 18:46 Urine Nitrite Negative (NEGATIVE) 10/31/16 18:46 Urine Bilirubin Negative (NEGATIVE) 10/31/16 18:46 Urine Urobilinogen Normal (NORMAL) 10/31/16 18:46 Ur Leukocyte Esterase 1+ (NEGATIVE) 10/31/16 18:46 Urine RBC 11-20 /HPF (NEGATIVE) 10/31/16 18:46 Urine WBC 3-5 /HPF (NEGATIVE) 10/31/16 18:46 Ur Squamous Epith Cells Rare /HPF (NEGATIVE) 10/31/16 18:46 Urine Bacteria Trace /HPF (NEGATIVE) 10/31/16 18:46 Ur Culture Indicated? No/not indicated 10/31/16 18:46 Vancomycin Trough 19.1 ug/mL (15-20) 11/05/16 20:45 Staph aureus (PCR) Positive (NEGATIVE) A 10/31/16 16:10 MRSA (PCR) Positive (NEGATIVE) A 10/31/16 16:10 Blood Type A NEGATIVE 10/31/16 13:37 Antibody Screen Negative 10/31/16 13:37 Crossmatch See Detail 10/31/16 13:37 - Plan (1) Fracture of femoral neck, left Status: Acute Qualifiers: Encounter type: initial encounter Fracture type: closed Open fracture type: O Fracture healing: F Qualified Code(s): S72.002A - Fracture of unspecified part of neck of left femur, initial encounter for closed fracture Plan: continue with physical therapy. (2) S/P hip hemiarthroplasty Status: Acute Plan: CONTINUE WOUND CARE, IV FLUIDS, VANCOMYCIN, DILAUDID, MORPHINE IV, HOLD ASPIRIN, MONITOR.
[2016-11-07] MEDS: NS 1000 ML 1,000 ML IV SCH (10:20)
[2016-11-07] MEDS: ALBUMIN HUMAN 25%- 100ML 100 ML IV SCH (10:21)
[2016-11-07] MEDS: HEMOCYTE-PLUS PO SCH (10:27)
[2016-11-07] MEDS: LOPRESSOR TAB 50 MG PO SCH ×2 (10:28→21:22)
[2016-11-07] MEDS: ZOLOFT PO SCH ×2 (10:28→21:17)
[2016-11-07] MEDS: MEGACE PO SCH (10:28)
[2016-11-07] MEDS: SYNTHROID 50 mcg TAB PO SCH (10:28)
[2016-11-07] MEDS: PriLOSEC PO SCH ×2 (10:29→21:17)
[2016-11-07] MEDS: COLACE CAP 100 MG PO SCH ×2 (10:29→21:17)
[2016-11-07] MEDS: NORVASC TAB 5 MG PO SCH ×2 (10:29→21:18)
[2016-11-07] MEDS: SINGULAIR TAB 10 MG PO SCH (10:29)
[2016-11-07] MEDS: LOVENOX INJ 30 MG SYR SC SCH (10:30)
[2016-11-07] MEDS: MIRALAX POWDER (1 DOSE 17GM) PO SCH (10:30)
[2016-11-07] MEDS: ERYTHROMYCIN STEARATE 250 MG TAB PO SCH ×2 (10:38→21:18)
[2016-11-07] MEDS: FLONASE NASAL SPRAY ENOSTRIL SCH ×2 (10:44→21:23)
[2016-11-07] MEDS: MILK OF MAGNESIA PO SCH ×4 (10:44→21:23)
[2016-11-07] MEDS ORDERED: ZOFRAN TAB 4 MG PO PRN (10:58)
[2016-11-07] MEDS: ZyPREXA TAB 5 MG PO SCH ×2 (12:17→21:17)
[2016-11-07] MEDS: HALDOL INJ IM PRN (16:46)
[2016-11-07] MEDS: FLOMAX PO SCH (16:46)
[2016-11-07] MEDS: SNACK - Diabetic Appropriate PO SCH (21:00)
[2016-11-07] MEDS: LIPITOR TAB 20 MG PO SCH (21:17)
[2016-11-07] MEDS: DULCOLAX TAB EC 5 MG PO SCH (21:18)
[2016-11-07] MEDS: RESTORIL CAP 30 MG PO SCH (21:18)
[2016-11-07] MEDS: ZyrTEC TAB 10 MG PO SCH (21:18)
[2016-11-07] MEDS: LEVEMIR SC SCH (21:23)
[2016-11-08] MEDS: ZANAFLEX PO SCH ×4 (05:57→21:27)
[2016-11-08 06:02] LABS: ALANINE AMINOTRANSFERASE 166 Units/L (12-78); ALBUMIN 2.9 g/dL (3.4-5.0); ALKALINE PHOSPHATASE 78 Units/L (46-116); ASPARTATE AMINO TRANSFERASE 116 Units/L (15-37); BLOOD UREA NITROGEN 20 mg/dL (7-18); CALCIUM 8.7 mg/dL (8.5-10.1); CARBON DIOXIDE 19.6 mmol/L (21-32); CHLORIDE 107 mmol/L (98-107); COR CA(FOR HYPOALB) 9.6 mg/dL (8.5-10.1); COR NA(FOR HYPERGLY) 144 mmol/L (136-145); GLUCOSE 180 mg/dL (65-99); SODIUM 142 mmol/L (136-145); TOTAL PROTEIN 7.2 g/dL (6.4-8.2); eGFR BLACK RACES > 60 (>60); eGFR NON BLACK RACES 53 (>60)
[2016-11-08 06:10] LABS: BASOPHILS # (AUTO) 0.1 X10^3/uL (0.0-0.1); BASOPHILS % (AUTO) 0.9 % (0.2-1.0); EOSINOPHILS # (AUTO) 0.9 x10^3/uL (0.0-0.2); EOSINOPHILS % (AUTO) 5.4 % (0.9-2.9); HEMATOCRIT 28.1 % (42.0-54.0); HEMOGLOBIN 9.4 g/dL (13.5-18.0); LYMPHOCYTES # (AUTO) 1.7 X10^3/uL (1.3-2.9); LYMPHOCYTES % (AUTO) 10.8 % (21.0-51.0); MEAN CORPUSCULAR HGB CONC 33.4 g/dL (33.0-35.0); MEAN CORPUSCULAR VOLUME 83.8 fL (80.0-100.0); MEAN PLATELET VOLUME 7.8 fL (7.4-11.0); MONOCYTES # (AUTO) 0.9 x10^3/uL (0.3-0.8); MONOCYTES % (AUTO) 5.7 % (0.0-13.0); NEUTROPHILS # (AUTO) 12.5 x10^3/uL (2.2-4.8); NEUTROPHILS % (AUTO) 77.2 % (42.0-75.0); PLATELET COUNT 226 X10^3/uL (150.0-450.0); RED BLOOD COUNT 3.35 X10^6/uL (4.7-6.0); RED CELL DISTRIBUTION WIDTH 16.6 % (11.6-16.5)
[2016-11-08 06:54] LABS: PLATELET MORPHOLOGY COMMENT NORMAL (NORMAL)
[2016-11-08] MEDS ORDERED: ZOLOFT PO ONE ×2 (08:41→20:29)
[2016-11-08] MEDS ORDERED: PHARMACY CONSULT - VANCOMYCIN XX SCH (10:00)
[2016-11-08] MEDS: MEGACE PO SCH (10:36)
[2016-11-08] MEDS: ZyPREXA TAB 5 MG PO SCH ×2 (10:36→21:25)
[2016-11-08] MEDS: PriLOSEC PO SCH ×2 (10:36→21:25)
[2016-11-08] MEDS: COLACE CAP 100 MG PO SCH ×2 (10:36→21:24)
[2016-11-08] MEDS: SYNTHROID 50 mcg TAB PO SCH (10:36)
[2016-11-08] MEDS: LOPRESSOR TAB 50 MG PO SCH ×2 (10:37→21:27)
[2016-11-08] MEDS: NORVASC TAB 5 MG PO SCH ×2 (10:37→21:26)
[2016-11-08] MEDS: SINGULAIR TAB 10 MG PO SCH (10:37)
[2016-11-08] MEDS: ZOLOFT PO SCH ×2 (10:37→21:26)
[2016-11-08] MEDS: ERYTHROMYCIN STEARATE 250 MG TAB PO SCH ×2 (10:38→21:28)
[2016-11-08] MEDS: HEMOCYTE-PLUS PO SCH (10:38)
[2016-11-08] MEDS: MIRALAX POWDER (1 DOSE 17GM) PO SCH (10:38)
[2016-11-08] MEDS: PERCOCET TAB 5/325 MG PO PRN (10:38)
[2016-11-08] MEDS: LOVENOX INJ 30 MG SYR SC SCH (10:39)
[2016-11-08] MEDS: FLONASE NASAL SPRAY ENOSTRIL SCH ×2 (10:39→21:30)
[2016-11-08] MEDS: MILK OF MAGNESIA PO SCH ×4 (10:51→21:24)
--- NOTE | 2016-11-08 11:20 | RAD ---
HISTORY: Shortness of breath Study: Chest one view Comparison: October 31, 2016 Findings: The trachea is midline. The cardiac silhouette is mildly enlarged. No congestive heart failure is n oted. The right lung and left upper lung farah are clear. There has been interval development sinc e the prior examination of a left lower lobe infiltrate. Developing pneumonia is possible. No pleura l effusions are identified.. The bony thorax is unremarkable. IMPRESSION: 1. Mild cardiomegaly without congestive heart failure 2. New left lower lobe infiltrate Reported By:
[2016-11-08] MEDS ORDERED: NS 1000 ML 0 ML ONE (11:39)
[2016-11-08] MEDS: VANCOMYCIN 1 GM PREMIX (ADDVANTAGE) 250 ML IV SCH ×2 (12:12→21:29)
[2016-11-08] MEDS ORDERED: NS 1/2 1000 ML IV 1,000 ML IV ONE (12:14)
[2016-11-08] MEDS: NS 1/2 1000 ML IV 1,000 ML IV SCH (12:15)
[2016-11-08] MEDS: ALBUMIN HUMAN 25%- 100ML 100 ML IV SCH (15:00)
[2016-11-08] MEDS: FLOMAX PO SCH (18:05)
[2016-11-08] MEDS: HumuLIN R SUBCUT PRN (18:08)
[2016-11-08] MEDS: DULCOLAX TAB EC 5 MG PO SCH (21:25)
[2016-11-08] MEDS: ZyrTEC TAB 10 MG PO SCH (21:26)
[2016-11-08] MEDS: RESTORIL CAP 30 MG PO SCH (21:27)
[2016-11-08] MEDS: LIPITOR TAB 20 MG PO SCH (21:28)
[2016-11-08] MEDS: SNACK - Diabetic Appropriate PO SCH (21:33)
[2016-11-08] MEDS: LEVEMIR SC SCH (21:42)
[2016-11-09] MEDS ORDERED: NS 1/2 1000 ML IV 1,000 ML IV ONE (00:48)
[2016-11-09] MEDS: NS 1/2 1000 ML IV 1,000 ML IV SCH (01:50)
[2016-11-09 06:19] LABS: BASOPHILS % (AUTO) 0.5 % (0.2-1.0); EOSINOPHILS # (AUTO) 0.5 x10^3/uL (0.0-0.2); EOSINOPHILS % (AUTO) 6.3 % (0.9-2.9); HEMOGLOBIN 9.7 g/dL (13.5-18.0); LYMPHOCYTES # (AUTO) 1.1 X10^3/uL (1.3-2.9); LYMPHOCYTES % (AUTO) 13.3 % (21.0-51.0); MEAN CORPUSCULAR HGB CONC 33.4 g/dL (33.0-35.0); MEAN CORPUSCULAR VOLUME 83.7 fL (80.0-100.0); MEAN PLATELET VOLUME 6.9 fL (7.4-11.0); MONOCYTES # (AUTO) 0.6 x10^3/uL (0.3-0.8); MONOCYTES % (AUTO) 6.5 % (0.0-13.0); NEUTROPHILS # (AUTO) 6.3 x10^3/uL (2.2-4.8); NEUTROPHILS % (AUTO) 73.4 % (42.0-75.0); PLATELET COUNT 228 X10^3/uL (150.0-450.0); RED BLOOD COUNT 3.46 X10^6/uL (4.7-6.0); RED CELL DISTRIBUTION WIDTH 17.1 % (11.6-16.5); WHITE BLOOD COUNT 8.6 X10^3/uL (3.6-10.0)
[2016-11-09 06:30] LABS: ALANINE AMINOTRANSFERASE 147 Units/L (12-78); ALKALINE PHOSPHATASE 73 Units/L (46-116); ASPARTATE AMINO TRANSFERASE 96 Units/L (15-37); BLOOD UREA NITROGEN 20 mg/dL (7-18); CALCIUM 8.5 mg/dL (8.5-10.1); CARBON DIOXIDE 19.9 mmol/L (21-32); CHLORIDE 108 mmol/L (98-107); COR CA(FOR HYPOALB) 9.3 mg/dL (8.5-10.1); COR NA(FOR HYPERGLY) 144 mmol/L (136-145); CREATININE 1.37 mg/dL (0.70-1.30); GLUCOSE 174 mg/dL (65-99); SODIUM 142 mmol/L (136-145); eGFR BLACK RACES > 60 (>60); eGFR NON BLACK RACES 54 (>60)
[2016-11-09] MEDS: ZANAFLEX PO SCH ×2 (06:34→15:02)
[2016-11-09] MEDS ORDERED: ZOLOFT PO ONE (08:37)
[2016-11-09] MEDS ORDERED: DUONEB 0.5 MG/3 MG NEB SCH (09:00)
[2016-11-09] MEDS: ALBUMIN HUMAN 25%- 100ML 100 ML IV SCH (09:03)
[2016-11-09] MEDS: SINGULAIR TAB 10 MG PO SCH (09:08)
[2016-11-09] MEDS: PriLOSEC PO SCH (09:09)
[2016-11-09] MEDS: ZyPREXA TAB 5 MG PO SCH (09:10)
[2016-11-09] MEDS: COLACE CAP 100 MG PO SCH (09:10)
[2016-11-09] MEDS: ZOLOFT PO SCH (09:10)
[2016-11-09] MEDS: MEGACE PO SCH (09:10)
[2016-11-09] MEDS: HEMOCYTE-PLUS PO SCH (09:10)
[2016-11-09] MEDS: NORVASC TAB 5 MG PO SCH (09:10)
[2016-11-09] MEDS: SYNTHROID 50 mcg TAB PO SCH (09:11)
[2016-11-09] MEDS: LOPRESSOR TAB 50 MG PO SCH (09:12)
[2016-11-09] MEDS: MIRALAX POWDER (1 DOSE 17GM) PO SCH (09:12)
[2016-11-09] MEDS: MILK OF MAGNESIA PO SCH ×2 (09:12→15:02)
[2016-11-09] MEDS: LOVENOX INJ 30 MG SYR SC SCH (09:20)
[2016-11-09] MEDS: VANCOMYCIN 1 GM PREMIX (ADDVANTAGE) 250 ML IV SCH (10:30)
--- NOTE | 2016-11-09 10:55 | RAD ---
HISTORY: Abdominal pain, abdominal distension Study: KUB Comparison: September 06, 2016 Findings: The abdominal gas pattern is nonspecific and nonobstructive. No abnormal masses or abnormal calcific ations are identified. Moderate stool is present. IMPRESSION: No definite acute abnormality Moderate stool Reported By:
[2016-11-09] MEDS ORDERED: FLEET ENEMA ADULT PR ONE (12:04)
[2016-11-09] MEDS: FLONASE NASAL SPRAY ENOSTRIL SCH (14:11)
[2016-11-09] MEDS: ERYTHROMYCIN STEARATE 250 MG TAB PO SCH (15:02)
[2016-11-09 15:07] VITALS: BP 160/67
== END 2016-11-09 14:55 | DRG 470 ==
LOC: ER 10:22 → MED/SURG 13:14
PROVIDERS: ADMIT Internal Medicine; ATTEND Internal Medicine
PROC: 0SRS01A Replacement of Left Hip Joint, Femoral Surface with Metal Synthetic Substitute, Uncemented, Open Approach (ICD-10-PCS; principal; 2016-10-31)
PROC: 30233N1 Transfusion of Nonautologous Red Blood Cells into Peripheral Vein, Percutaneous Approach (ICD-10-PCS; 2016-11-01)
PROC: 30233N1 Transfusion of Nonautologous Red Blood Cells into Peripheral Vein, Percutaneous Approach (ICD-10-PCS; 2016-11-01)
DX: S72.002A Fracture of unspecified part of neck of left femur, initial encounter for closed fracture (principal); S83.92XA Sprain of unspecified site of left knee, initial encounter; I10 Essential (primary) hypertension; E11.65 Type 2 diabetes mellitus with hyperglycemia; R47.01 Aphasia; M25.552 Pain in left hip; M79.605 Pain in left leg; Y92.098 Other place in other non-institutional residence as the place of occurrence of the external cause; W07.XXXA Fall from chair, initial encounter; M85.88 Other specified disorders of bone density and structure, other site; E78.2 Mixed hyperlipidemia; Z79.4 Long term (current) use of insulin; F01.50 Vascular dementia, unspecified severity, without behavioral disturbance, psychotic disturbance, mood disturbance, and anxiety; N40.1 Benign prostatic hyperplasia with lower urinary tract symptoms; B95.62 Methicillin resistant Staphylococcus aureus infection as the cause of diseases classified elsewhere; Z86.73 Personal history of transient ischemic attack (TIA), and cerebral infarction without residual deficits
CPT/HCPCS: 36415; 36430; 62319; 71010; 72170; 72192; 73501; 73552; 73590; 74000; 80048; 80053; 80076; 80202; 81001; 82565; 83605; 85002; 85025; 85610; 85730; 86850; 86900; 86901; 86922; 87040; 87086; 87641; 93005; 94760; 96365; 97535; 99100; 99284; A4222; P9016; P9047; S0020; S0179; 1956; J0690; J1630; J1650; J1815; J2001; J2270; J2370; J3370; J3490; J7120; J7620

== ENCOUNTER → 2016-11-17 | Outpatient (CLI) | payer OTHER, BC ==
[2016-11-09 15:07] VITALS: BP 160/67
--- NOTE | 2016-11-17 12:38 | RAD ---
Chest, one view Indication: Pneumonia, cough. Comparison: 11/08/2016 Findings: Cardiac silhouette is unremarkable. No dense infiltrates or large effusion identified. Pre viously noted left basilar infiltrate has resolved. The bony thorax is unremarkable. Impression: No acute cardiopulmonary disease. Reported By:
--- NOTE | 2016-11-17 12:46 | RAD ---
Bilateral hips, two views each Indication: Surgical followup. Patient unable to communicate complaints Comparison: 11/01/2016 Findings: Postsurgical changes of recent left hip arthroplasty are noted, with satisfactory hardware alignment. There are mild degenerative changes of the right hip, without evidence for acute fractur e or subluxation. Impression: Satisfactory appearance of the recent left hip arthroplasty. No acute hip fracture or oviedo bluxation identified. Reported By:
== END | disposition home or self-care (01) ==
LOC: RAD 09:01
PROVIDERS: ATTEND Internal Medicine
DX: Z09 Encounter for follow-up examination after completed treatment for conditions other than malignant neoplasm (principal); Z96.642 Presence of left artificial hip joint; J18.9 Pneumonia, unspecified organism
CPT/HCPCS: 71010; 73521

== ENCOUNTER 2016-11-19 02:49 | Inpatient (IN) | payer OTHER, BC ==
[2016-11-19] MEDS ORDERED: D50W ABBOJECT SYR ONE (03:05)
[2016-11-19] MEDS ORDERED: SOLU-Medrol 125 MG VIAL IVP ONE (03:12)
[2016-11-19] MEDS ORDERED: D50W ABBOJECT SYR IV ONE (03:12)
[2016-11-19] MEDS ORDERED: DUONEB 0.5 MG/3 MG NEB ONE (03:12)
[2016-11-19] MEDS ORDERED: DUONEB 0.5 MG/3 MG ONE (03:13)
[2016-11-19 03:15] VITALS: BMI 25.9
--- NOTE | 2016-11-19 03:16 | DR.GENAD ---
HPI - PCP Primary Care Physician: SANA - Complaint/Symptoms Chief Complaint Doctors Comments: Patient sent from senior care with a complaint of chest pain, problems breathing with O2 Sat 82 on room air at the senior care with oxygen coming up to 86% on 3 liters. Patient is on nebulizer treatments but the senior care staff states she does not know when he had his last treatment. Patient responds to verbal stimuli and is cold and diaphoretic. His glucose is 56. Patient complains of epigastric pain. states that he has not had a bowel movement in about a week and they have been giving him laxatives without any improvement. States the patient just had left hip surgery and maybe complaining of pain. states he has had a bad cough and they gave him some IV fluids and started him on antibiotics recently and he seem to perk up. Chief Complaint:: CHEST PAIN/ SOB - Nurses notes reviewed Nurses Notes Review: Yes - Source History Provided: Shelter - Mode of Arrival Mode of Arrival: Stretcher - Timing Onset of Chief Complaint: 11/19/16 Came on: Gradually - Duration Duration: Constant How lon Duration: Hours - Location Location: chest pain - Severity Severity: Moderate - Modifying Factors Worsens:: nothing Improves:: nothing PMH - PMH Past Medical History: Yes Past Medical History: Anemia, Anxiety, Depression, Diabetes, Dyslipidemia, GERD , Hypertension, Hypothyroidism Past Medical History Comment: TIA/CVA Past Surgical History: Yes Surgical History: Joint Replacement Past Surgical History Comment: HERNIA REPAIR - Family History History of Family Medical Conditions: Yes Family Medical History: Coronary Artery Disease, Hypertension - Social History Does patient currently use any type of tobacco product: No Have you used tobacco products in the last 12 months: No Type of Tobacco Use: None Does any household member use tobacco: No Alcohol Use: None Do you use any recreational Drugs:: No Lives With: Alone Lives Where: Shelter - infectious screening In the last 2 months have you had wt loss of >10#?: NO Have you had fever, night sweats or hemotysis?: No Have you traveled outside the country in the last 6 months?: No Isolation: Standard ROS - Review of Systems Constitutional: No Symptoms Reported, Weakness, Loss of Appetite Eyes: No Symptoms Reported ENTM: No Symptoms Reported Respiratoy: No Symptoms Reported, Short of Breath, Wheezing Cardiovascular: Chest Pain Gastrointestinal/Abdominal: No Symptoms Reported Genitourinary: No Symptoms Reported Neurological: No Symptoms Reported Musculoskeletal: No Symptoms Reported Integumentary: No Symptoms Reported Hematologic/Lymphatic: No Symptoms Reported Endocrine: No Symptoms Reported Psychiatric: No Symptoms Reported PE - Vital Signs Vitals: Temperature 97.6 F Pulse Rate [Left Brachial] 76 Pulse Rate 81 Respiratory Rate 16 Blood Pressure [Right Arm] 100/51 Blood Pressure [Left Arm] 144/65 Blood Pressure 103/53 O2 Sat by Pulse Oximetry 90 - General Limitations: Altered Mental Status General Appearance: Alert, In Distress (moderate to severe) - Head Head Exam: Normal Inspection, Atraumatic, Normocephalic - Eyes Eye exam: Normal Appearance, PERRL, EOMI. negative: Scleral Icterus, Conjunctival Injection, Nystagmus, Miosis, Mydrasis, Periorbital Swelling, Periorbital Tenderness, Other - ENT ENT Exam: Normal Exam, Normal Oropharynx, Normal External Ear Exam, Mucous Membranes Moist, TM's Normal Bilaterally External Ear Exam: Normal External Inspection TM/Canal Exam: Bilateral Normal Nose Exam: Normal Nose Exam Mouth Exam: Normal Inspection. negative: Drooling, Trismus, Lip Swelling, Tongue Elevation, Tongue Swelling, Laceration, Other Throat Exam: Normal Inspection - Neck Neck Exam: Normal Inspection, Full ROM, Trachea Midline. negative: Tenderness, Meningismus, Lymphadenopathy, Thyromegaly, Other - Chest Chest Inspection: Normal Inspection, Symmetric Chest Wall Rise. negative: Tenderness, Rash, Abscess, Other - Respiratory Respiratory Exam: Prolonged Expiratory Phase, Respiratory Distress Respiratory Exam: Bilateral Wheezing, Bilateral Decreased Breath Sounds, Left Rales (basilar) - Cardiovascular Cardiovascular Exam: Regular Rate, Normal Rhythm, Normal Heart Sounds, Systolic Murmur - Abdominal Exam Abdominal Exam: Normal Inspection, Normal Bowel Sounds, Soft Abdominal Tenderness: negative: RUQ, RLQ, LUQ, LLQ, Epigastrium, Suprapubic, Diffuse, Mild, Moderate, Severe, Other - Extremities Extremities Exam: Normal Inspection, Full ROM, Normal Capillary Refill. negative: Tenderness, Edema, Joint Swelling, Calf Tenderness, Other - Back Back Exam: Normal Inspection, Full ROM. negative: Tenderness, (R) CVA Tenderness, (L) CVA Tenderness, Muscle Spasm, Paraspinal Tenderness, Vertebral Tenderness, Rashes, (R) Sciatic Notch Tenderness, (L) Sciatic Notch Tendern, (R ) Straight Leg Raise, (L) Straight Leg Raise, Other - Neurologic Neurological Exam: Reflexes Normal. negative: Alert (lethargic), Oriented X3 ( oriented to person), CN II-XII Intact (unable to test ), Normal Gait (gait not tested) - Psychiatric Psychiatric Exam: Normal Affect, Depressed - Skin Skin Exam: Intact, Normal Color, Diaphoresis. negative: Warm (cool) Course - Reevaluation 1st: Improved - Consultation Called: :27 Call Returned: 05:27 (Dr. Llanos to admit) - Education/Counseling Education/Counseling: Patient, Family Educated On: Treatment, Diagnosis, Needs for Follow Up ROR - Labs Reviewed Laboratory Results Reviewed?: Yes (all labs and x-ray results reviewed and discussed with patient and family) Result Diagrams: 11/19/16 03:45 11/19/16 03:45 Laboratory: WBC 15.9 X10^3/uL (3.6-10.0) H 11/19/16 03:45 RBC 2.92 X10^6/uL (4.7-6.0) L 11/19/16 03:45 Hgb 8.0 g/dL (13.5-18.0) L 11/19/16 03:45 Hct 25.3 % (42.0-54.0) L 11/19/16 03:45 MCV 86.5 fL (80.0-100.0) 11/19/16 03:45 MCH 27.5 pg (27.0-34.0) 11/19/16 03:45 MCHC 31.8 g/dL (33.0-35.0) L 11/19/16 03:45 RDW 18.0 % (11.6-16.5) H 11/19/16 03:45 Plt Count 315 X10^3/uL (150.0-450.0) 11/19/16 03:45 MPV 7.1 fL (7.4-11.0) L 11/19/16 03:45 Neut % 83.5 % (42.0-75.0) H 11/19/16 03:45 Lymph % 4.7 % (21.0-51.0) L 11/19/16 03:45 Dixie % 4.6 % (0.0-13.0) 11/19/16 03:45 Eos % 6.8 % (0.9-2.9) H 11/19/16 03:45 Baso % 0.4 % (0.2-1.0) 11/19/16 03:45 Neut # 13.2 x10^3/uL (2.2-4.8) H 11/19/16 03:45 Lymph # 0.8 X10^3/uL (1.3-2.9) L 11/19/16 03:45 [place]ie # 0.7 x10^3/uL (0.3-0.8) 11/19/16 03:45 Eos # 1.1 x10^3/uL (0.0-0.2) H 11/19/16 03:45 Baso # 0.1 X10^3/uL (0.0-0.1) 11/19/16 03:45 Absolute Nucleated RBC 0.0 /100WBC 11/19/16 03:45 INR Target Range - 11/19/16 03:45 INR 1.35 (0.8-1.3) H 11/19/16 03:45 PTT 22.4 SECONDS (22.9-36.5) L 11/19/16 03:45 PTT Comment - 11/19/16 03:45 D-Dimer 2730 ng/mL (0-400) H* 11/19/16 03:45 Sodium 139 mmol/L (136-145) 11/19/16 03:45 Corrected Sodium 140 mmol/L (136-145) 11/19/16 03:45 Potassium 5.7 mmol/L (3.5-5.1) H 11/19/16 03:45 Chloride 106 mmol/L (98-107) 11/19/16 03:45 Carbon Dioxide 16.8 mmol/L (21-32) L 11/19/16 03:45 BUN 66 mg/dL (7-18) H 11/19/16 03:45 Creatinine 4.32 mg/dL (0.70-1.30) H 11/19/16 03:45 Est GFR (MDRD) Af Amer 17 (>60) L 11/19/16 03:45 Est GFR (MDRD) Non-Af 14 (>60) L 11/19/16 03:45 Glucose 150 mg/dL (65-99) H 11/19/16 03:45 Calcium 8.5 mg/dL (8.5-10.1) 11/19/16 03:45 Corrected Calcium 9.4 mg/dL (8.5-10.1) 11/19/16 03:45 Magnesium 3.9 mg/dL (1.7-2.9) H 11/19/16 03:45 Total Bilirubin 0.30 mg/dL (0.2-1.0) 11/19/16 03:45 AST 42 Units/L (15-37) H 11/19/16 03:45 ALT 39 Units/L (12-78) 11/19/16 03:45 Alkaline Phosphatase 89 Units/L (46-116) 11/19/16 03:45 Creatine Kinase 339 Units/L (39-308) H 11/19/16 03:45 CK-MB (CK-2) 3.0 ng/mL (0-4.0) 11/19/16 03:45 CK/CKMB % Calc 0.9 % (<4) 11/19/16 03:45 Troponin I < 0.02 ng/mL (0-1.5) 11/19/16 03:45 Total Protein 7.3 g/dL (6.4-8.2) 11/19/16 03:45 Albumin 2.9 g/dL (3.4-5.0) L 11/19/16 03:45 Globulin 4.4 g/dL (2.5-4.5) 11/19/16 03:45 Albumin/Globulin Ratio 0.7 Ratio (1.1-2.1) L 11/19/16 03:45 - XRAY XRAY Interpreted by: Radiologist (CXR: mild cardiomegaly and central vascular congestion) XRAY Findings: CT abdomen/pelvis: Lare area consolidation lung bases likely pneumonia - EKG Rate: 81 Ryan: Normal Rhythm: NSR Block: None Hypertrophy: None ST: Old, Inf, Infarct - Diagnosis Discharge Problem: Acute respiratory disease, Hyperkalemia, Metabolic acidosis, Chronic kidney disease, stage 4 (severe), Congestive heart failure, Anemia Pneumonia Qualifiers: Aspiration pneumonia type: unspecified Laterality: bilateral Constipation Qualifiers: Constipation type: unspecified constipation type Qualified Code(s): K59.00 - Constipation, unspecified Diabetes mellitus Qualifiers: Diabetes mellitus type: type 1 - Discharge Plan Disposition: ADMITTED INPATIENT Condition: Stable - Follow ups/Referrals Follow ups/Referrals: Deep Llanos [Primary Care Provider] - 3 days - Instructions
[2016-11-19] MEDS ORDERED: SOLU-Medrol 125 MG VIAL ONE (03:19)
--- NOTE | 2016-11-19 03:50 | RAD ---
EXAM: Chest X-ray INDICATION: Chest pain COMPARISION: Prior exam from November 17, 2016 TECHNIQUE: Single view FINDINGS: The lungs are clear and the lung volumes are decreased bilaterally. No pleural effusion or pneumotho rax. The cardiac silhouette is mildly enlarged and there central vascular congestion. The regional skeleton is intact. IMPRESSION: There is mild cardiomegaly and central vascular congestion. Reported By:
[2016-11-19] MEDS ORDERED: NS 1000 ML 1,000 ML IV SCH (04:00)
[2016-11-19 04:02] LABS: BASOPHILS # (AUTO) 0.1 X10^3/uL (0.0-0.1); BASOPHILS % (AUTO) 0.4 % (0.2-1.0); EOSINOPHILS # (AUTO) 1.1 x10^3/uL (0.0-0.2); EOSINOPHILS % (AUTO) 6.8 % (0.9-2.9); HEMATOCRIT 25.3 % (42.0-54.0); LYMPHOCYTES # (AUTO) 0.8 X10^3/uL (1.3-2.9); LYMPHOCYTES % (AUTO) 4.7 % (21.0-51.0); MEAN CORPUSCULAR HEMOGLOBIN 27.5 pg (27.0-34.0); MEAN CORPUSCULAR HGB CONC 31.8 g/dL (33.0-35.0); MEAN CORPUSCULAR VOLUME 86.5 fL (80.0-100.0); MEAN PLATELET VOLUME 7.1 fL (7.4-11.0); MONOCYTES # (AUTO) 0.7 x10^3/uL (0.3-0.8); MONOCYTES % (AUTO) 4.6 % (0.0-13.0); NEUTROPHILS # (AUTO) 13.2 x10^3/uL (2.2-4.8); NEUTROPHILS % (AUTO) 83.5 % (42.0-75.0); PLATELET COUNT 315 X10^3/uL (150.0-450.0); RED BLOOD COUNT 2.92 X10^6/uL (4.7-6.0); WHITE BLOOD COUNT 15.9 X10^3/uL (3.6-10.0)
[2016-11-19 04:11] LABS: BLOOD UREA NITROGEN 66 mg/dL (7-18); CALCIUM 8.5 mg/dL (8.5-10.1); CARBON DIOXIDE 16.8 mmol/L (21-32); CHLORIDE 106 mmol/L (98-107); COR NA(FOR HYPERGLY) 140 mmol/L (136-145); CREATININE 4.32 mg/dL (0.70-1.30); GLUCOSE 150 mg/dL (65-99); SODIUM 139 mmol/L (136-145); TROPONIN I < 0.02 ng/mL (0-1.5); eGFR BLACK RACES 17 (>60); eGFR NON BLACK RACES 14 (>60)
[2016-11-19 04:15] LABS: ALANINE AMINOTRANSFERASE 39 Units/L (12-78); ALBUMIN 2.9 g/dL (3.4-5.0); ALKALINE PHOSPHATASE 89 Units/L (46-116); ASPARTATE AMINO TRANSFERASE 42 Units/L (15-37); CKMB % 0.9 % (<4); COR CA(FOR HYPOALB) 9.4 mg/dL (8.5-10.1); CREATINE KINASE 339 Units/L (39-308); MAGNESIUM 3.9 mg/dL (1.7-2.9); TOTAL PROTEIN 7.3 g/dL (6.4-8.2)
--- NOTE | 2016-11-19 04:29 | CT ---
EXAM: CT ABDOMEN AND PELVIS WITHOUT CONTRAST INDICATION: Abdominal distention COMPARISION: No priors available for comparison TECHNIQUE: Axial CT examination of the abdomen and pelvis was performed without intravenous contrast. Coronal a nd sagittal reconstructions were created using the axial data. FINDINGS: Large areas of parenchymal consolidation are seen throughout the lower lobes bilaterally. There is a moderate-sized hiatal hernia. The gallbladder is distended. There are bilateral renal cysts. In the left lobe of the liver there is a 1.2 cm low-attenuation lesion. The pancreas is atrophic. The adre nal glands and spleen appear unremarkable. A large amount of stool is seen throughout the colon. The bowel loops are nonobstructed. The appendix is normal. Urinary bladder is distended. IMPRESSION: 1: Large areas consolidation are seen in the lung bases likely representing pneumonia. 2: There is a large amount of stool throughout the colon consistent with constipation. 3: There is distension of the gallbladder and urinary bladder. Correlate with clinical findings. 4: The low-attenuation in the liver is too small to characterize. If further evaluation is needed, a dynamic contrast enhanced CT or MRI could be obtained. Reported By:
[2016-11-19 04:53] LABS: D DIMER 2730 ng/mL (0-400)
[2016-11-19] MEDS ORDERED: ROCEPHIN VIAL 2 GM 2 GM in NS 50 ML IV + SPIKE MINIBAG* 50 ML IV ONE (04:55)
[2016-11-19] MEDS ORDERED: ROCEPHIN VIAL 1 GM 1 GM in NS 50 ML IV + SPIKE MINIBAG* 50 ML IV ONE (05:02)
[2016-11-19] MEDS ORDERED: NS 50 ML IV + SPIKE MINIBAG* 50 ML IV ONE (05:05)
[2016-11-19] MEDS ORDERED: ROCEPHIN VIAL 1 GM ONE (05:05)
[2016-11-19 05:40] LABS: BILIRUBIN,URINE 1+ (NEGATIVE); BLOOD/HEMOGLOBIN,URINE 1+ (NEGATIVE); GLUCOSE, URINE NEGATIVE (NEGATIVE); KETONES,URINE NEGATIVE (NEGATIVE); LEUKOCYTE ESTERASE ,URINE NEGATIVE (NEGATIVE); NITRITES,URINE NEGATIVE (NEGATIVE); PROTEIN,URINE 2+ (NEGATIVE); UROBILINOGEN,URINE NORMAL (NORMAL)
[2016-11-19] MEDS ORDERED: LEVAQUIN PREMIX IV 500 MG 500 MG/100 ML BAG IV SCH (06:00)
[2016-11-19 06:03] LABS: ABG BASE EXCESS -8.2 mmol/L (-2.0-2.0)
[2016-11-19 06:04] LABS: ABG ALLEN TEST POS; ABG HCO3 15.1 mmol/L (22-26)
[2016-11-19 06:07] LABS: APPEARANCE,URINE SLIGHTLY HAZY (CLEAR); BACTERIA,URINE NEGATIVE /HPF (NEGATIVE); COLOR,URINE YELLOW (YELLOW); RBC,URINE 0-3 /HPF (NEGATIVE); SQUAMOUS EPITHELIAL CELL,UR RARE /HPF (NEGATIVE)
[2016-11-19 06:08] LABS: AMORPHOUS SEDIMENT,UR TRACE /HPF (NEGATIVE)
[2016-11-19] MEDS ORDERED: LEVAQUIN PREMIX IV 250 MG 250 MG/50 ML BAG IV ONE (06:51)
[2016-11-19] MEDS: LEVAQUIN PREMIX IV 250 MG 250 MG/50 ML BAG IV SCH (06:54)
[2016-11-19 07:35] LABS: CKMB % 0.8 % (<4); CREATINE KINASE 332 Units/L (39-308); CREATINE KINASE MB 2.8 ng/mL (0-4.0); TROPONIN I < 0.02 ng/mL (0-1.5)
[2016-11-19] MEDS ORDERED: LOVENOX INJ 40 MG SYR SC SCH (09:00)
[2016-11-19] MEDS ORDERED: CHRONULAC PO SCH (09:00)
[2016-11-19] MEDS: DUONEB 0.5 MG/3 MG NEB SCH ×3 (09:41→17:15)
[2016-11-19] MEDS: LOVENOX INJ 30 MG SYR SC SCH (10:06)
[2016-11-19] MEDS: ROBITUSSIN DM PO SCH ×5 (10:07→21:23)
[2016-11-19] MEDS: ZOSYN VIAL 2.25 GM 2.25 GM in NS 100 ML IV + SPIKE MINIBAG* 100 ML IV SCH ×3 (10:07→21:08)
[2016-11-19] MEDS ORDERED: ZANAFLEX PO PRN (11:17)
[2016-11-19] MEDS ORDERED: ZOLOFT PO ONE ×2 (11:49→20:47)
[2016-11-19] MEDS: SYNTHROID 50 mcg TAB PO SCH (11:57)
[2016-11-19] MEDS: COLACE CAP 100 MG PO SCH ×2 (11:57→21:02)
[2016-11-19] MEDS: ECOTRIN TAB 325 MG PO SCH (11:57)
[2016-11-19] MEDS: SINGULAIR TAB 10 MG PO SCH (11:57)
[2016-11-19] MEDS: LOPRESSOR TAB 50 MG PO SCH ×2 (11:57→21:02)
[2016-11-19] MEDS: HEMOCYTE-PLUS PO SCH (11:57)
[2016-11-19] MEDS: ZyPREXA TAB 5 MG PO SCH ×2 (11:57→21:02)
[2016-11-19] MEDS: PEPCID 20 MG IV PREMIX* 20 MG/50 ML BAG IV SCH (11:57)
[2016-11-19] MEDS: MEGACE PO SCH (11:57)
[2016-11-19] MEDS: ZOLOFT PO SCH ×2 (11:57→21:02)
[2016-11-19] MEDS: PERCOCET TAB 5/325 MG PO PRN (11:58)
[2016-11-19] MEDS: XANAX PO PRN (11:58)
[2016-11-19] MEDS: MILK OF MAGNESIA PO SCH ×3 (11:58→21:23)
[2016-11-19 12:42] LABS: CREATINE KINASE 274 Units/L (39-308); CREATINE KINASE MB 2.6 ng/mL (0-4.0); TROPONIN I < 0.02 ng/mL (0-1.5)
[2016-11-19] MEDS: HumuLIN R SC PRN ×3 (13:46→21:05)
[2016-11-19] MEDS ORDERED: [UNRECOGNIZED DRUG - OTHER] PO SCH (14:00)
--- NOTE | 2016-11-19 14:11 | DR.UPDATE ---
H&P Update History and Physical Update: HISTORY AND PHYSICAL UPDATE FOR ADMISSION 11/19/16 MR. NARANJO'S H&P WAS COMPLETED WITH HIS PRIOR ADMISSION ON 10/31/16. HE IS ADMITTED TODAY FOR PNEUMONIA. PATIENT HAS BEEN AT [facility] FOR SHORT-TERM REHAB AND WE HAVE BEEN TREATING HIM FOR PNEUMONIA WHILE THERE. PATIENT HAS BEEN RECEIVING BACTRIM DS BID AND DUONEBS QID AND WE STARTED IV LEVAQUIN YESTERDAY AFTER A CRITICAL WBC WAS REPORTED OF 22.3. PATIENT WAS BROUGHT TO THE EMERGENCY ROOM THIS MORNING WITH RESPIRATORY DISTRESS WITH O2 SATURATION IN THE 80'S. LABS AND CT WERE OBTAINED ON ARRIVAL TO ER. CBC WNL EXCEPT: WBC HAVE IMPROVED FROM 22.3 TO 15.9, H/H 8.0/25.3. CMP WNL EXCEPT: POTASSIUM 5.7, CARBON DIOXIDE 16.8, BUN/CREAT 66/4.32, GFR 14, GLUCOSE 150, ALBUMIN 2.9. ABG ABNORMALS: PCO2 25.0, PO2 59.0, HCO3 15.1, FIO2 28.0. CT OF ABD/PELVIS REPORTS LARGE AREAS OF CONSOLIDATION IN THE LUNG BASES; LARGE AMOUNT OF STOOL THROUGHOUT THE COLON; DISTENSION OF THE GALLBLADDER. PATIENT WILL BE STARTED ON PNEUMONIA PROTOCOL WITH IV LEVAQUIN, IV ZOSYN, DUONEBS, ROBITUSSIN, AND A BOWEL REGIMEN OF CHRONULAC, DULCOLAX, COLACE, MILK OF MAGNESIA, AND MIRALAX. WE WILL FOLLOW UP IN AM WITH LABS AND CHEST XRAY.
[2016-11-19] MEDS: ZANAFLEX PO SCH ×2 (16:01→21:03)
[2016-11-19] MEDS ORDERED: SODIUM BICARBONATE 8.4% INJ ADULT ONE (16:07)
[2016-11-19] MEDS ORDERED: NS 1/2 1000 ML IV 1,000 ML IV ONE (16:07)
[2016-11-19] MEDS: SODIUM BICARBONATE IV SCH ×4 (16:12→21:01)
[2016-11-19] MEDS: NS IV SCH ×4 (16:12→21:01)
[2016-11-19] MEDS: FLONASE NASAL SPRAY ENOSTRIL SCH ×2 (16:23→21:03)
[2016-11-19 17:23] LABS: CREATINE KINASE MB 2.6 ng/mL (0-4.0); TROPONIN I 0.02 ng/mL (0-1.5)
[2016-11-19] MEDS ORDERED: DULCOLAX TAB EC 5 MG PO SCH (21:00)
[2016-11-19] MEDS: LIPITOR TAB 20 MG PO SCH (21:02)
[2016-11-19] MEDS: RESTORIL CAP 30 MG PO PRN (21:02)
[2016-11-19] MEDS: FLOMAX PO SCH (21:02)
[2016-11-19] MEDS: MIRALAX POWDER (1 DOSE 17GM) PO SCH (21:04)
[2016-11-19] MEDS: LEVEMIR SC SCH (21:04)
[2016-11-19] MEDS: XOPENEX 1.25 MG/3 ML NEBULE NEB SCH (21:11)
[2016-11-20] MEDS ORDERED: BUTT CREAM (COMPOUND) ONE (03:02)
[2016-11-20] MEDS ORDERED: BUTT CREAM (COMPOUND) TOP PRN (05:00)
[2016-11-20] MEDS: ZANAFLEX PO SCH ×5 (05:32→22:07)
[2016-11-20] MEDS: ZOSYN VIAL 2.25 GM 2.25 GM in NS 100 ML IV + SPIKE MINIBAG* 100 ML IV SCH ×3 (05:32→22:00)
[2016-11-20 06:05] LABS: BASOPHILS % (AUTO) 0.3 % (0.2-1.0); EOSINOPHILS % (AUTO) 0.2 % (0.9-2.9); HEMATOCRIT 24.9 % (42.0-54.0); HEMOGLOBIN 8.1 g/dL (13.5-18.0); LYMPHOCYTES # (AUTO) 0.8 X10^3/uL (1.3-2.9); MEAN CORPUSCULAR HEMOGLOBIN 27.6 pg (27.0-34.0); MEAN CORPUSCULAR HGB CONC 32.5 g/dL (33.0-35.0); MEAN PLATELET VOLUME 7.1 fL (7.4-11.0); MONOCYTES # (AUTO) 0.7 x10^3/uL (0.3-0.8); MONOCYTES % (AUTO) 4.3 % (0.0-13.0); NEUTROPHILS # (AUTO) 14.4 x10^3/uL (2.2-4.8); NEUTROPHILS % (AUTO) 90.2 % (42.0-75.0); PLATELET COUNT 367 X10^3/uL (150.0-450.0); RED BLOOD COUNT 2.93 X10^6/uL (4.7-6.0); RED CELL DISTRIBUTION WIDTH 17.8 % (11.6-16.5)
[2016-11-20 07:18] LABS: ALANINE AMINOTRANSFERASE 48 Units/L (12-78); ALBUMIN 2.7 g/dL (3.4-5.0); ALKALINE PHOSPHATASE 93 Units/L (46-116); ASPARTATE AMINO TRANSFERASE 37 Units/L (15-37); BLOOD UREA NITROGEN 68 mg/dL (7-18); CALCIUM 8.9 mg/dL (8.5-10.1); CARBON DIOXIDE 16.7 mmol/L (21-32); CHLORIDE 109 mmol/L (98-107); CHOL/HDL RATIO 8.4 (0.0-5.0); CHOLESTEROL 101 mg/dL (0-200); COR CA(FOR HYPOALB) 9.9 mg/dL (8.5-10.1); CREATININE 3.75 mg/dL (0.70-1.30); GLUCOSE 77 mg/dL (65-99); HDL CHOLESTEROL 12 mg/dL (40-60); SODIUM 141 mmol/L (136-145); TOTAL PROTEIN 7.3 g/dL (6.4-8.2); TRIGLYCERIDES 165 mg/dL (0-150); eGFR BLACK RACES 20 (>60); eGFR NON BLACK RACES 17 (>60)
[2016-11-20] MEDS ORDERED: ZOLOFT PO ONE ×2 (07:51→20:50)
[2016-11-20] MEDS: PERCOCET TAB 5/325 MG PO PRN ×2 (08:02→15:56)
[2016-11-20] MEDS: ZOLOFT PO SCH ×2 (08:02→22:07)
[2016-11-20] MEDS: XANAX PO PRN (08:02)
[2016-11-20] MEDS: MEGACE PO SCH (08:02)
[2016-11-20] MEDS: COLACE CAP 100 MG PO SCH ×2 (08:03→22:03)
[2016-11-20] MEDS: SINGULAIR TAB 10 MG PO SCH (08:03)
[2016-11-20] MEDS: LOPRESSOR TAB 50 MG PO SCH ×2 (08:03→22:08)
[2016-11-20] MEDS: ZyPREXA TAB 5 MG PO SCH ×2 (08:03→22:03)
[2016-11-20] MEDS: SYNTHROID 50 mcg TAB PO SCH (08:03)
[2016-11-20] MEDS: HEMOCYTE-PLUS PO SCH (08:03)
[2016-11-20] MEDS: ECOTRIN TAB 325 MG PO SCH (08:04)
[2016-11-20] MEDS: LOVENOX INJ 30 MG SYR SC SCH (08:07)
[2016-11-20 08:14] LABS: BAND NEUTROPHILS % 9 % (0-10)
[2016-11-20 08:15] LABS: PLATELET MORPHOLOGY COMMENT NORMAL (NORMAL)
[2016-11-20] MEDS: XOPENEX 1.25 MG/3 ML NEBULE NEB SCH ×4 (09:31→20:59)
[2016-11-20] MEDS: FLONASE NASAL SPRAY ENOSTRIL SCH ×2 (10:01→22:08)
[2016-11-20] MEDS: ROBITUSSIN DM PO SCH ×4 (10:01→22:03)
--- NOTE | 2016-11-20 10:25 | RAD ---
HISTORY: Bilateral pneumonia, cough Study: Single-view chest Comparison: November 19, 2016 Findings: The patient is rotated to the right. There is also a rightward deviation of the trachea which is lik liliane secondary to a tortuous and/or ectatic thoracic aorta. The cardiac silhouette is enlarged in siz e. There are low lung volumes. There are ground-glass opacities within the right lung, most signifi cant within the mid and lower right lung, concerning for pneumonia. Asymmetric edema may be consider ed as well but is less favored. A small right basilar pleural effusion is suspected. The bony thorax is grossly intact. IMPRESSION: 1. Findings concerning for pneumonia as above. Followup is recommended. Likely small right basilar pleural effusion as well. Reported By:
[2016-11-20] MEDS: DULCOLAX SUPPOSITORY 10 MG RECTAL ONE ×3 (10:39→14:33)
[2016-11-20] MEDS ORDERED: DULCOLAX SUPPOSITORY 10 MG ONE ×2 (11:42→14:01)
[2016-11-20] MEDS: LINZESS PO SCH (14:31)
[2016-11-20] MEDS ORDERED: NS 250 ML IV 250 ML IV ONE (14:47)
--- NOTE | 2016-11-20 15:58 | PCM.PROG ---
Progress Note - Progress Note for Day of Date: 11/20/16 - Subjective Subjective: PATIENT RESTS IN BED, CONTINUES WITH COUGH AND CHEST CONGESTION. AT BEDSIDE. PATIENT HAS NOT HAD A BOWEL MOVEMENT IN SEVERAL DAYS AND RECENT CT OF ABD/PELVIS REPORTS LARGE AMOUNT OF STOOL IN COLON. PATIENT IS REFUSING CHRONULAC AND MILK OF MAGNESIA. WE WILL ATTEMPT A DIFFERENT APPROACH TODAY. PATIENT CONTINUES ON IV ANTIBIOTICS AND AGGRESSIVE NEB TREATMENTS FOR BILATERAL PNEUMONIA. ON AUSCULTATION, LUNGS ARE NOTED WITH SCATTERED WHEEZING THROUGHOUT. CBC WNL EXCEPT: WBC 16.0, H/H 8.1/24.9. CMP WNL EXCEPT: POTASSIUM 5.8, CHL 109, CARBON DIOXIDE 16.7, BUN/CREAT 68/3.75, GFR 17, ALBUMIN 27. CHEST XRAY REPORTS: GROUND-GLASS OPACITIES WITHIN THE RIGHT MID AND LOWER LUNG. WE WILL GIVE DULCOLAX SUPPOSITORIES FOR CONSTIPATION, START LINZESS, INCREASE DULCOLAX TAB AT HS, AND CONTINUE AGGRESSIVE PULMONARY TOILETING. WE WILL FOLLOW UP IN AM WITH LABS AND CHEST XRAY. - Past Medical Family Social History Past Med/Fam/Surg Hx: No changes since H&P Allergies: Allergies No Known Drug Allergy Allergy (Verified 10/31/16 10:46) - Review of Systems ROS: No change since H&P - Vital Signs and I&O's Vital Signs: Temperature 99.0 F Pulse Rate [Left Brachial] 87 Pulse Rate 73 Respiratory Rate 20 Blood Pressure [Right Arm] 119/42 O2 Sat by Pulse Oximetry 90 Intake and Output: Intake & Output 11/18/16 11/19/16 11/20/16 11/21/16 11:59 11:59 11:59 11:59 Intake Total 3021 Output Total 2675 Balance 346 - Physical Exam Oriented: Person Eyes: Normal. negative: Blurred Vision, Diplopia, Discharge, Pain, Redness, Photophobia Ear: Normal. negative: Swelling, Ecchymosis, Hemotypanum, Abrasion, Laceration Nose: Normal. negative: Injected, Discharge, Blood Throat: Red, Dry. negative: Tonsillar Hypertrophy, Exudate Respiratory: Generalized, Wheezes Cardiovascular: Normal. negative: Murmur, Edema : Normal. negative: Dysuria, Hematuria, Frequency, Testicular Pain Auscultation: Bowel Sounds: Normal. negative: Bruit Palpation: Normal. negative: Spleen Enlarged, Liver Enlarged, Mass Pulsatile Tenderness: Other (Abdominal Distention). negative: Rebound, Guarding, Rigidity Skin: Decreased Turgur. negative: Diaphoresis, Wound, Bruising, Ecchymosis Musculoskeletal: Instability Psychiatric: Normal Mood Description: Calm Affect: Normal Speech Pattern: Clear, Appropriate - Laboratory and Diagnostics Result Diagrams: 11/20/16 03:45 11/20/16 03:45 Labs: 11/19/16 05:33 Sputum - Expectorated Sputum Sputum Culture - Preliminary 11/19/16 05:33 Sputum - Expectorated Sputum - Final Laboratory WBC 16.0 X10^3/uL (3.6-10.0) H 11/20/16 03:45 RBC 2.93 X10^6/uL (4.7-6.0) L 11/20/16 03:45 Hgb 8.1 g/dL (13.5-18.0) L 11/20/16 03:45 Hct 24.9 % (42.0-54.0) L 11/20/16 03:45 MCV 85.0 fL (80.0-100.0) 11/20/16 03:45 MCH 27.6 pg (27.0-34.0) 11/20/16 03:45 MCHC 32.5 g/dL (33.0-35.0) L 11/20/16 03:45 RDW 17.8 % (11.6-16.5) H 11/20/16 03:45 Plt Count 367 X10^3/uL (150.0-450.0) 11/20/16 03:45 Plt Count Comment Adequate (ADEQUATE) 11/20/16 03:45 MPV 7.1 fL (7.4-11.0) L 11/20/16 03:45 Neut % 90.2 % (42.0-75.0) H 11/20/16 03:45 Lymph % 5.0 % (21.0-51.0) L 11/20/16 03:45 [place] % 4.3 % (0.0-13.0) 11/20/16 03:45 Eos % 0.2 % (0.9-2.9) L 11/20/16 03:45 Baso % 0.3 % (0.2-1.0) 11/20/16 03:45 Neut # 14.4 x10^3/uL (2.2-4.8) H 11/20/16 03:45 Lymph # 0.8 X10^3/uL (1.3-2.9) L 11/20/16 03:45 [place] # 0.7 x10^3/uL (0.3-0.8) 11/20/16 03:45 Eos # 0.0 x10^3/uL (0.0-0.2) 11/20/16 03:45 Baso # 0.0 X10^3/uL (0.0-0.1) 11/20/16 03:45 Absolute Nucleated RBC 0.0 /100WBC 11/20/16 03:45 Total Counted 100 11/20/16 03:45 Neutrophils % (Manual) 81 % (39-76) H 11/20/16 03:45 Band Neutrophils % 9 % (0-10) 11/20/16 03:45 Lymphocytes % (Manual) 8 % (13-43) L 11/20/16 03:45 Monocytes % (Manual) 2 % (4-9) L 11/20/16 03:45 Plt Morphology Comment Normal (NORMAL) 11/20/16 03:45 RBC Morphology Normal (NORMAL) 11/20/16 03:45 INR Target Range - 11/19/16 03:45 INR 1.35 (0.8-1.3) H 11/19/16 03:45 PTT 22.4 SECONDS (22.9-36.5) L 11/19/16 03:45 PTT Comment - 11/19/16 03:45 D-Dimer 2730 ng/mL (0-400) H* 11/19/16 03:45 Sample Site Lr 11/19/16 05:57 ABG pH 7.390 (7.35-7.45) 11/19/16 05:57 ABG pCO2 25.0 mmHg (35.0-45.0) L 11/19/16 05:57 ABG pO2 59.0 mmHg (80.0-100.0) L 11/19/16 05:57 ABG HCO3 15.1 mmol/L (22-26) L* 11/19/16 05:57 ABG O2 Saturation 90.0 % (90-100) 11/19/16 05:57 ABG Base Excess -8.2 mmol/L (-2.0-2.0) L 11/19/16 05:57 Jim Test Pos 11/19/16 05:57 A-a Gradient 109.0 mmHg 11/19/16 05:57 FiO2 28.000 11/19/16 05:57 Blood Gas Comments Martin well ae 11/19/16 05:57 Sodium 141 mmol/L (136-145) 11/20/16 03:45 Corrected Sodium TNP 11/20/16 03:45 Potassium 5.8 mmol/L (3.5-5.1) H 11/20/16 03:45 Chloride 109 mmol/L (98-107) H 11/20/16 03:45 Carbon Dioxide 16.7 mmol/L (21-32) L 11/20/16 03:45 BUN 68 mg/dL (7-18) H 11/20/16 03:45 Creatinine 3.75 mg/dL (0.70-1.30) H 11/20/16 03:45 Est GFR (MDRD) Af Amer 20 (>60) L 11/20/16 03:45 Est GFR (MDRD) Non-Af 17 (>60) L 11/20/16 03:45 Glucose 77 mg/dL (65-99) 11/20/16 03:45 Lactic Acid 1.8 mmol/L (0.4-2.0) 11/19/16 05:15 Calcium 8.9 mg/dL (8.5-10.1) 11/20/16 03:45 Corrected Calcium 9.9 mg/dL (8.5-10.1) 11/20/16 03:45 Magnesium 3.9 mg/dL (1.7-2.9) H 11/19/16 03:45 Total Bilirubin 0.20 mg/dL (0.2-1.0) 11/20/16 03:45 AST 37 Units/L (15-37) 11/20/16 03:45 ALT 48 Units/L (12-78) 11/20/16 03:45 Alkaline Phosphatase 93 Units/L (46-116) 11/20/16 03:45 Creatine Kinase 256 Units/L (39-308) 11/19/16 16:37 CK-MB (CK-2) 2.6 ng/mL (0-4.0) 11/19/16 16:37 CK/CKMB % Calc 1.0 % (<4) 11/19/16 16:37 Troponin I 0.02 ng/mL (0-1.5) 11/19/16 16:37 B-Natriuretic Peptide 216 pg/mL (0-79) H 11/19/16 05:25 Total Protein 7.3 g/dL (6.4-8.2) 11/20/16 03:45 Albumin 2.7 g/dL (3.4-5.0) L 11/20/16 03:45 Globulin 4.6 g/dL (2.5-4.5) H 11/20/16 03:45 Albumin/Globulin Ratio 0.6 Ratio (1.1-2.1) L 11/20/16 03:45 Triglycerides 165 mg/dL (0-150) H 11/20/16 03:45 Cholesterol 101 mg/dL (0-200) 11/20/16 03:45 LDL Cholesterol, Calc 56 mg/dL (0-100) 11/20/16 03:45 HDL Cholesterol 12 mg/dL (40-60) L 11/20/16 03:45 Cholesterol/HDL Ratio 8.4 (0.0-5.0) H 11/20/16 03:45 Specimen Type Catherized urine 11/19/16 04:58 Urine Color Yellow (YELLOW) 11/19/16 04:58 Urine Appearance Slightly hazy (CLEAR) 11/19/16 04:58 Urine pH 6.0 (5.0 - 8.0) 11/19/16 04:58 Ur Specific [place] 1.015 (1.000-1.030) 11/19/16 04:58 Urine Protein 2+ (NEGATIVE) 11/19/16 04:58 Urine Glucose (UA) Negative (NEGATIVE) 11/19/16 04:58 Urine Ketones Negative (NEGATIVE) 11/19/16 04:58 Urine Occult Blood 1+ (NEGATIVE) 11/19/16 04:58 Urine Nitrite Negative (NEGATIVE) 11/19/16 04:58 Urine Bilirubin 1+ (NEGATIVE) 11/19/16 04:58 Urine Urobilinogen Normal (NORMAL) 11/19/16 04:58 Ur Leukocyte Esterase Negative (NEGATIVE) 11/19/16 04:58 Urine RBC 0-3 /HPF (NEGATIVE) 11/19/16 04:58 Urine WBC 0-3 /HPF (NEGATIVE) 11/19/16 04:58 Ur Squamous Epith Cells Rare /HPF (NEGATIVE) 11/19/16 04:58 Amorphous Sediment Trace /HPF (NEGATIVE) 11/19/16 04:58 Urine Bacteria Negative /HPF (NEGATIVE) 11/19/16 04:58 Ur Culture Indicated? No/not indicated 11/19/16 04:58 - Plan (1) Pneumonia Status: Acute Qualifiers: Pneumonia type: P Aspiration pneumonia type: unspecified Laterality: bilateral Lung location: L Plan: CONTINUE PNEUMONIA PROTOCOL: IV ANTIBIOTICS, AGGRESSIVE NEB TREATMENTS, MONITOR LABS AND CHEST XRAY. (2) Constipation Status: Acute Qualifiers: Constipation type: unspecified constipation type Qualified Code(s): K59.00 - Constipation, unspecified Plan: GIVE DULCOLAX SUPPOSITORIES, INCREASE DULCOLAX TABS TO 10MG AT HS, START LINZESS, CONTINUE COLACE, DISCONTINUE MILK OF MAGESIA AND CHRONULAC. (3) Acute respiratory disease Status: Acute Plan: ABOVE. (4) Diabetes mellitus, type 2 Status: Chronic Qualifiers: Diabetes mellitus complication status: without complication Diabetes mellitus complication detail: D Diabetic retinopathy severity: D Proliferative retinopathy type: P Diabetes mellitus macular edema: D Diabetes mellitus chcf insulin use: with extermination supervisor use Laterality: L Chronic kidney disease stage: C Qualified Code(s): E11.9 - Type 2 diabetes mellitus without complications; Z79.4 - roasterman (current) use of insulin (5) Essential hypertension Status: Chronic (6) GERD (gastroesophageal reflux disease) Status: Chronic Qualifiers: Esophagitis presence: esophagitis presence not specified Qualified Code(s) : K21.9 - Gastro-esophageal reflux disease without esophagitis (7) History of CVA (cerebrovascular accident) Status: Chronic (8) Hyperlipidemia Status: Chronic Qualifiers: Hyperlipidemia type: mixed hyperlipidemia Qualified Code(s): E78.2 - Mixed hyperlipidemia (9) Vascular dementia Status: Chronic Qualifiers: Dementia behavioral disturbance: without behavioral disturbance Qualified Code(s): F01.50 - Vascular dementia without behavioral disturbance
[2016-11-20] MEDS: HumuLIN R SC PRN (17:29)
[2016-11-20] MEDS: NS IV SCH ×4 (19:32→22:08)
[2016-11-20] MEDS: SODIUM BICARBONATE IV SCH ×4 (19:32→22:08)
[2016-11-20] MEDS: LEVEMIR SC SCH (21:59)
[2016-11-20] MEDS: MIRALAX POWDER (1 DOSE 17GM) PO SCH (22:06)
[2016-11-20] MEDS: DULCOLAX TAB EC 5 MG PO SCH (22:06)
[2016-11-20] MEDS: FLOMAX PO SCH (22:06)
[2016-11-20] MEDS: LIPITOR TAB 20 MG PO SCH (22:07)
[2016-11-20] MEDS: RESTORIL CAP 30 MG PO PRN (22:07)
[2016-11-21] MEDS ORDERED: NS 1000 ML 1,000 ML ONE (00:14)
[2016-11-21 04:49] LABS: ALBUMIN 2.3 g/dL (3.4-5.0); CALCIUM 8.5 mg/dL (8.5-10.1); CARBON DIOXIDE 18.3 mmol/L (21-32); COR CA(FOR HYPOALB) 9.9 mg/dL (8.5-10.1); CREATININE 2.94 mg/dL (0.70-1.30); TOTAL PROTEIN 6.5 g/dL (6.4-8.2)
[2016-11-21 04:52] LABS: BASOPHILS % (AUTO) 0.3 % (0.2-1.0); EOSINOPHILS # (AUTO) 0.4 x10^3/uL (0.0-0.2); EOSINOPHILS % (AUTO) 2.4 % (0.9-2.9); HEMATOCRIT 22.9 % (42.0-54.0); HEMOGLOBIN 7.4 g/dL (13.5-18.0); LYMPHOCYTES # (AUTO) 0.8 X10^3/uL (1.3-2.9); LYMPHOCYTES % (AUTO) 5.3 % (21.0-51.0); MEAN CORPUSCULAR HEMOGLOBIN 27.4 pg (27.0-34.0); MEAN CORPUSCULAR HGB CONC 32.4 g/dL (33.0-35.0); MEAN CORPUSCULAR VOLUME 84.8 fL (80.0-100.0); MONOCYTES # (AUTO) 0.7 x10^3/uL (0.3-0.8); MONOCYTES % (AUTO) 4.4 % (0.0-13.0); NEUTROPHILS # (AUTO) 13.5 x10^3/uL (2.2-4.8); NEUTROPHILS % (AUTO) 87.6 % (42.0-75.0); PLATELET COUNT 309 X10^3/uL (150.0-450.0); RED CELL DISTRIBUTION WIDTH 17.7 % (11.6-16.5); WHITE BLOOD COUNT 15.4 X10^3/uL (3.6-10.0)
[2016-11-21] MEDS: LEVAQUIN PREMIX IV 250 MG 250 MG/50 ML BAG IV SCH (05:39)
[2016-11-21] MEDS: ZANAFLEX PO SCH ×3 (05:39→21:02)
[2016-11-21] MEDS: ZOSYN VIAL 2.25 GM 2.25 GM in NS 100 ML IV + SPIKE MINIBAG* 100 ML IV SCH ×3 (05:39→21:39)
[2016-11-21 05:56] LABS: PLATELET MORPHOLOGY COMMENT NORMAL (NORMAL)
--- NOTE | 2016-11-21 07:12 | RAD ---
HISTORY: Pneumonia Study: Single-view chest, done portably Comparison: November 20, 2016 Findings: Cardiac monitoring electrodes are noted on the chest. The trachea is again deviated slightly to the right secondary to ectasia of the aortic arch. There is some calcification of the aortic arch. There is cardiomegaly. Left lung is clear. Slight improvement in the right perihilar focus of edema or in filtrate compared to prior studies. No pleural fluid or pneumothorax is seen. Osseous structures are intact. IMPRESSION: Cardiomegaly. Slight interval improvement in the right perihilar focus of edema or infiltrate compared to the prio r study. Reported By:
[2016-11-21] MEDS ORDERED: ZOLOFT PO ONE ×2 (09:18→20:26)
[2016-11-21] MEDS: SYNTHROID 50 mcg TAB PO SCH (09:23)
[2016-11-21] MEDS: MEGACE PO SCH (09:23)
[2016-11-21] MEDS: ROBITUSSIN DM PO SCH ×4 (09:23→20:47)
[2016-11-21] MEDS: LOPRESSOR TAB 50 MG PO SCH ×2 (09:23→20:46)
[2016-11-21] MEDS: ZyPREXA TAB 5 MG PO SCH ×2 (09:23→20:53)
[2016-11-21] MEDS: ZOLOFT PO SCH ×2 (09:23→20:46)
[2016-11-21] MEDS: ALBUMIN HUMAN 25%- 100ML 100 ML IV SCH (09:24)
[2016-11-21] MEDS: COLACE CAP 100 MG PO SCH ×2 (09:24→20:39)
[2016-11-21] MEDS: LINZESS PO SCH (09:24)
[2016-11-21] MEDS: HEMOCYTE-PLUS PO SCH (09:24)
[2016-11-21] MEDS: SINGULAIR TAB 10 MG PO SCH (09:24)
[2016-11-21] MEDS: ECOTRIN TAB 325 MG PO SCH (09:24)
[2016-11-21] MEDS: FLONASE NASAL SPRAY ENOSTRIL SCH ×2 (09:26→20:44)
[2016-11-21] MEDS: LOVENOX INJ 30 MG SYR SC SCH (09:26)
[2016-11-21] MEDS: XOPENEX 1.25 MG/3 ML NEBULE NEB SCH ×4 (09:44→21:09)
[2016-11-21] MEDS ORDERED: NS 500 ML IV 500 ML IV ONE (09:46)
[2016-11-21] MEDS ORDERED: PHARMACY CONSULT - TPN XX SCH (10:00)
[2016-11-21] MEDS: PEPCID 20 MG IV PREMIX* 20 MG/50 ML BAG IV SCH (11:40)
[2016-11-21] MEDS: HumuLIN R SC PRN ×2 (11:48→21:00)
[2016-11-21] MEDS: NS IV SCH ×2 (11:50)
[2016-11-21] MEDS: SODIUM BICARBONATE IV SCH ×2 (11:50)
[2016-11-21] MEDS ORDERED: CLINIMIX 4.25 %/10 % 1,000 ML with MVI INJ (ADULT) 10 ML, TRACE ELEMENTS INJ 10 ML, TPN... IV SCH ×5 (12:00)
[2016-11-21] MEDS ORDERED: MUCOMYST (RESPIRATORY USE ONLY) NEB SCH (13:00)
[2016-11-21] MEDS: DECADRON JET NEB NEB SCH ×3 (13:19→21:09)
--- NOTE | 2016-11-21 13:25 | PCM.PROG ---
Progress Note - Progress Note for Day of Date: 11/21/16 - Subjective Subjective: PATIENT RESTS IN BED ON MORNING ROUNDS, CONTINUES WITH COUGH AND CHEST CONGESTION. AT BEDSIDE. STATES THAT PATIENT IS NOT EATING WELL. STAFF REPORTS THAT PATIENT HAD A LARGE BOWEL MOVEMENT YESTERDAY. PATIENT CONTINUES ON IV ANTIBIOTICS AND AGGRESSIVE NEB TREATMENTS FOR BILATERAL PNEUMONIA. ON AUSCULTATION, LUNGS ARE NOTED WITH SCATTERED WHEEZING THROUGHOUT. CBC WNL EXCEPT: WBC 15.4, H/H 7.4/22.9. CMP WNL EXCEPT: POTASSIUM 5.7, CHL 111, CARBON DIOXIDE 18.3, BUN/CREAT 54/2.94, GFR 22, ALBUMIN 2.3. CHEST XRAY REPORTS: SLIGHT INTERVAL IMPROVEMENT IN THE RIGHT PERIHILAR. WE WILL ADMINISTER 2 UNITS PRBC, CONTINUE AGGRESSIVE PULMONARY TOILETING, AND START TPN. WE WILL FOLLOW UP IN AM WITH LABS AND CHEST XRAY. - Past Medical Family Social History Past Med/Fam/Surg Hx: No changes since H&P Allergies: Allergies No Known Drug Allergy Allergy (Verified 10/31/16 10:46) - Review of Systems ROS: No change since H&P - Vital Signs and I&O's Vital Signs: Temperature 99.6 F Pulse Rate [Left Brachial] 95 Pulse Rate 88 Respiratory Rate 28 Blood Pressure [Right Arm] 127/54 O2 Sat by Pulse Oximetry 84 Intake and Output: Intake & Output 11/19/16 11/20/16 11/21/16 11/22/16 11:59 11:59 11:59 11:59 Intake Total 3021 2719 Output Total 2675 2000 Balance 346 719 - Physical Exam Oriented: Person Eyes: Normal. negative: Blurred Vision, Diplopia, Discharge, Pain, Redness, Photophobia Ear: Normal. negative: Swelling, Ecchymosis, Hemotypanum, Abrasion, Laceration Nose: Normal. negative: Injected, Discharge, Blood Throat: Red, Dry. negative: Tonsillar Hypertrophy, Exudate Respiratory: Generalized, Wheezes Cardiovascular: Normal. negative: Murmur, Edema : Normal. negative: Dysuria, Hematuria, Frequency, Testicular Pain Auscultation: Bowel Sounds: Normal. negative: Bruit Palpation: Normal. negative: Spleen Enlarged, Liver Enlarged, Mass Pulsatile Tenderness: Other (Abdominal Distention). negative: Rebound, Guarding, Rigidity Skin: Decreased Turgur. negative: Diaphoresis, Wound, Bruising, Ecchymosis Musculoskeletal: Instability Psychiatric: Normal Mood Description: Calm Affect: Normal Speech Pattern: Clear, Appropriate - Laboratory and Diagnostics Result Diagrams: 11/21/16 04:10 11/21/16 04:10 Labs: 11/19/16 05:33 Sputum - Expectorated Sputum Sputum Culture - Final 11/19/16 05:33 Sputum - Expectorated Sputum - Final Laboratory WBC 15.4 X10^3/uL (3.6-10.0) H 11/21/16 04:10 RBC 2.70 X10^6/uL (4.7-6.0) L 11/21/16 04:10 Hgb 7.4 g/dL (13.5-18.0) L 11/21/16 04:10 Hct 22.9 % (42.0-54.0) L 11/21/16 04:10 MCV 84.8 fL (80.0-100.0) 11/21/16 04:10 MCH 27.4 pg (27.0-34.0) 11/21/16 04:10 MCHC 32.4 g/dL (33.0-35.0) L 11/21/16 04:10 RDW 17.7 % (11.6-16.5) H 11/21/16 04:10 Plt Count 309 X10^3/uL (150.0-450.0) 11/21/16 04:10 Plt Count Comment Adequate (ADEQUATE) 11/21/16 04:10 MPV 7.0 fL (7.4-11.0) L 11/21/16 04:10 Neut % 87.6 % (42.0-75.0) H 11/21/16 04:10 Lymph % 5.3 % (21.0-51.0) L 11/21/16 04:10 [place] % 4.4 % (0.0-13.0) 11/21/16 04:10 Eos % 2.4 % (0.9-2.9) 11/21/16 04:10 Baso % 0.3 % (0.2-1.0) 11/21/16 04:10 Neut # 13.5 x10^3/uL (2.2-4.8) H 11/21/16 04:10 Lymph # 0.8 X10^3/uL (1.3-2.9) L 11/21/16 04:10 [place] # 0.7 x10^3/uL (0.3-0.8) 11/21/16 04:10 Eos # 0.4 x10^3/uL (0.0-0.2) H 11/21/16 04:10 Baso # 0.0 X10^3/uL (0.0-0.1) 11/21/16 04:10 Absolute Nucleated RBC 0.0 /100WBC 11/21/16 04:10 Total Counted 100 11/20/16 03:45 Neutrophils % (Manual) 81 % (39-76) H 11/20/16 03:45 Band Neutrophils % 9 % (0-10) 11/20/16 03:45 Lymphocytes % (Manual) 8 % (13-43) L 11/20/16 03:45 Monocytes % (Manual) 2 % (4-9) L 11/20/16 03:45 Plt Morphology Comment Normal (NORMAL) 11/21/16 04:10 RBC Morphology Normal (NORMAL) 11/21/16 04:10 INR Target Range - 11/19/16 03:45 INR 1.35 (0.8-1.3) H 11/19/16 03:45 PTT 22.4 SECONDS (22.9-36.5) L 11/19/16 03:45 PTT Comment - 11/19/16 03:45 D-Dimer 2730 ng/mL (0-400) H* 11/19/16 03:45 Sample Site Lr 11/19/16 05:57 ABG pH 7.390 (7.35-7.45) 11/19/16 05:57 ABG pCO2 25.0 mmHg (35.0-45.0) L 11/19/16 05:57 ABG pO2 59.0 mmHg (80.0-100.0) L 11/19/16 05:57 ABG HCO3 15.1 mmol/L (22-26) L* 11/19/16 05:57 ABG O2 Saturation 90.0 % (90-100) 11/19/16 05:57 ABG Base Excess -8.2 mmol/L (-2.0-2.0) L 11/19/16 05:57 Jim Test Pos 11/19/16 05:57 A-a Gradient 109.0 mmHg 11/19/16 05:57 FiO2 28.000 11/19/16 05:57 Blood Gas Comments Martin well ae 11/19/16 05:57 Sodium 142 mmol/L (136-145) 11/21/16 04:10 Corrected Sodium 143 mmol/L (136-145) 11/21/16 04:10 Potassium 5.7 mmol/L (3.5-5.1) H 11/21/16 04:10 Chloride 111 mmol/L (98-107) H 11/21/16 04:10 Carbon Dioxide 18.3 mmol/L (21-32) L 11/21/16 04:10 BUN 54 mg/dL (7-18) H 11/21/16 04:10 Creatinine 2.94 mg/dL (0.70-1.30) H 11/21/16 04:10 Est GFR (MDRD) Af Amer 27 (>60) L 11/21/16 04:10 Est GFR (MDRD) Non-Af 22 (>60) L 11/21/16 04:10 Glucose 153 mg/dL (65-99) H 11/21/16 04:10 Lactic Acid 1.8 mmol/L (0.4-2.0) 11/19/16 05:15 Calcium 8.5 mg/dL (8.5-10.1) 11/21/16 04:10 Corrected Calcium 9.9 mg/dL (8.5-10.1) 11/21/16 04:10 Magnesium 3.9 mg/dL (1.7-2.9) H 11/19/16 03:45 Total Bilirubin 0.30 mg/dL (0.2-1.0) 11/21/16 04:10 AST 40 Units/L (15-37) H 11/21/16 04:10 ALT 41 Units/L (12-78) 11/21/16 04:10 Alkaline Phosphatase 79 Units/L (46-116) 11/21/16 04:10 Creatine Kinase 256 Units/L (39-308) 11/19/16 16:37 CK-MB (CK-2) 2.6 ng/mL (0-4.0) 11/19/16 16:37 CK/CKMB % Calc 1.0 % (<4) 11/19/16 16:37 Troponin I 0.02 ng/mL (0-1.5) 11/19/16 16:37 B-Natriuretic Peptide 216 pg/mL (0-79) H 11/19/16 05:25 Total Protein 6.5 g/dL (6.4-8.2) 11/21/16 04:10 Albumin 2.3 g/dL (3.4-5.0) L 11/21/16 04:10 Globulin 4.2 g/dL (2.5-4.5) 11/21/16 04:10 Albumin/Globulin Ratio 0.5 Ratio (1.1-2.1) L 11/21/16 04:10 Triglycerides 165 mg/dL (0-150) H 11/20/16 03:45 Cholesterol 101 mg/dL (0-200) 11/20/16 03:45 LDL Cholesterol, Calc 56 mg/dL (0-100) 11/20/16 03:45 HDL Cholesterol 12 mg/dL (40-60) L 11/20/16 03:45 Cholesterol/HDL Ratio 8.4 (0.0-5.0) H 11/20/16 03:45 Specimen Type Catherized urine 11/19/16 04:58 Urine Color Yellow (YELLOW) 11/19/16 04:58 Urine Appearance Slightly hazy (CLEAR) 11/19/16 04:58 Urine pH 6.0 (5.0 - 8.0) 11/19/16 04:58 Ur Specific [place] 1.015 (1.000-1.030) 11/19/16 04:58 Urine Protein 2+ (NEGATIVE) 11/19/16 04:58 Urine Glucose (UA) Negative (NEGATIVE) 11/19/16 04:58 Urine Ketones Negative (NEGATIVE) 11/19/16 04:58 Urine Occult Blood 1+ (NEGATIVE) 11/19/16 04:58 Urine Nitrite Negative (NEGATIVE) 11/19/16 04:58 Urine Bilirubin 1+ (NEGATIVE) 11/19/16 04:58 Urine Urobilinogen Normal (NORMAL) 11/19/16 04:58 Ur Leukocyte Esterase Negative (NEGATIVE) 11/19/16 04:58 Urine RBC 0-3 /HPF (NEGATIVE) 11/19/16 04:58 Urine WBC 0-3 /HPF (NEGATIVE) 11/19/16 04:58 Ur Squamous Epith Cells Rare /HPF (NEGATIVE) 11/19/16 04:58 Amorphous Sediment Trace /HPF (NEGATIVE) 11/19/16 04:58 Urine Bacteria Negative /HPF (NEGATIVE) 11/19/16 04:58 Ur Culture Indicated? No/not indicated 11/19/16 04:58 Blood Type A NEGATIVE 11/21/16 10:13 Antibody Screen Negative 11/21/16 10:13 Crossmatch See Detail 11/21/16 10:13 - Plan (1) Pneumonia Status: Acute Qualifiers: Pneumonia type: P Aspiration pneumonia type: unspecified Laterality: bilateral Lung location: L Plan: CONTINUE PNEUMONIA PROTOCOL: IV ANTIBIOTICS, AGGRESSIVE NEB TREATMENTS, MONITOR LABS AND CHEST XRAY. (2) Anemia Status: Acute Qualifiers: Anemia type: iron deficiency Iron deficiency anemia type: inadequate dietary iron intake Vitamin B12 deficiency anemia type: V Folate deficiency anemia type: F Bone marrow failure anemia type: B Hemolytic anemia type: H Other causes of anemia: O Qualified Code(s): D50.8 - Other iron deficiency anemias Plan: ADMINISTER 2 UNITS PRBC, MONITOR LABS (3) Constipation Status: Acute Qualifiers: Constipation type: unspecified constipation type Qualified Code(s): K59.00 - Constipation, unspecified Plan: CONTINUE LINZESS, CONTINUE COLACE (4) Acute respiratory disease Status: Acute Plan: ABOVE. (5) Diabetes mellitus, type 2 Status: Chronic Qualifiers: Diabetes mellitus complication status: without complication Diabetes mellitus complication detail: D Diabetic retinopathy severity: D Proliferative retinopathy type: P Diabetes mellitus macular edema: D Diabetes mellitus terminal makeup operator insulin use: with terminal makeup operator use Laterality: L Chronic kidney disease stage: C Qualified Code(s): E11.9 - Type 2 diabetes mellitus without complications; Z79.4 - terminal superintendent (current) use of insulin (6) Essential hypertension Status: Chronic (7) GERD (gastroesophageal reflux disease) Status: Chronic Qualifiers: Esophagitis presence: esophagitis presence not specified Qualified Code(s) : K21.9 - Gastro-esophageal reflux disease without esophagitis (8) History of CVA (cerebrovascular accident) Status: Chronic (9) Hyperlipidemia Status: Chronic Qualifiers: Hyperlipidemia type: mixed hyperlipidemia Qualified Code(s): E78.2 - Mixed hyperlipidemia (10) Vascular dementia Status: Chronic Qualifiers: Dementia behavioral disturbance: without behavioral disturbance Qualified Code(s): F01.50 - Vascular dementia without behavioral disturbance
[2016-11-21] MEDS: BENADRYL INJ 50 MG VIAL IVP PRN (14:12)
[2016-11-21] MEDS: TYLENOL 325 MG TAB PO PRN ×2 (14:13→23:53)
[2016-11-21] MEDS: MUCOMYST 20% 200 MG/ML NEB SCH ×2 (17:15→21:09)
--- NOTE | 2016-11-21 17:33 | RAD ---
HISTORY: PICC line placement Study: Portable AP chest Comparison: 11/21/2016 . Findings: The heart is top normal. The pulmonary vessels are slightly engorged centrally and more prominent. T here is a PICC line in place on the left with the tip in the proximal superior vena cava. There are hazy perihilar opacities which is more prominent on the right and have increased. No effusion or pne umothorax is seen. IMPRESSION: Status post left PICC line placement in good position. Stable mild cardiomegaly with worsening pulmonary edema Reported By:
--- NOTE | 2016-11-21 17:45 | DR.UPDATE ---
H&P Update History and Physical Update: History and Physical reviewed and patient examined. Changes noted: NO Yes with the following:Agree with H&P from Dr Llanos. will perform PICC. Procedures (ALL) - Central Line Placement PCM.CLCO: written consent Time out performed: Yes Patient placed pm monitor/pulse ox: Yes MD prep: mask, gown, gloves, other Centrial line prep: povidone-iodine 1%, sterile drapes applied Local anesthsia used: lidocaine 2% Ultrasound used for placement: Yes Central line lumen ininserted: double Post procedure: good blood return, all ports aspirated, flushed,capped, sterile dressing applied Post procedure xray: tip oc catheter in good position, no pneumothorax seen Patient tolerated procedure: Yes Complications: none (catheter secured with 9cm exposed. catheter not trimmed)
[2016-11-21] MEDS: CLINIMIX 4.25 %/10 % 1,000 ML with MVI INJ (ADULT) 10 ML, TRACE ELEMENTS INJ 10 ML, TPN... IV SCH ×10 (20:09→20:10)
[2016-11-21] MEDS: DULCOLAX TAB EC 5 MG PO SCH (20:43)
[2016-11-21] MEDS: SNACK - Diabetic Appropriate PO SCH (20:44)
[2016-11-21] MEDS: FLOMAX PO SCH (20:45)
[2016-11-21] MEDS: LIPITOR TAB 20 MG PO SCH (20:45)
[2016-11-21] MEDS: MIRALAX POWDER (1 DOSE 17GM) PO SCH (20:47)
[2016-11-21] MEDS: LEVEMIR SC SCH (20:55)
[2016-11-21] MEDS: RESTORIL CAP 30 MG PO PRN (22:16)
[2016-11-21] MEDS: PERCOCET TAB 5/325 MG PO PRN (22:16)
[2016-11-22] MEDS: BENADRYL INJ 50 MG VIAL IVP PRN (03:19)
[2016-11-22] MEDS: CLINIMIX 4.25 %/10 % 1,000 ML with MVI INJ (ADULT) 10 ML, TRACE ELEMENTS INJ 10 ML, TPN... IV SCH ×20 (05:33→19:53)
[2016-11-22] MEDS: HumuLIN R SC PRN ×2 (06:06→14:35)
[2016-11-22] MEDS: ZANAFLEX PO SCH ×3 (06:59→22:34)
--- NOTE | 2016-11-22 07:21 | RAD ---
HISTORY: Cough congestion Study: Chest one view Comparison: November 21, 2016 Findings: There is a left-sided PICC line with its tip in the superior vena cava. The heart remains enlarged. Pulmonary venous congestion is present. No definite interstitial or alveolar edema or alveolar infil trates are identified. No pleural effusions are present. The bony thorax is unremarkable. IMPRESSION: Cardiomegaly with pulmonary venous congestion Reported By:
[2016-11-22] MEDS: ZOSYN VIAL 2.25 GM 2.25 GM in NS 100 ML IV + SPIKE MINIBAG* 100 ML IV SCH ×3 (07:30→21:32)
[2016-11-22] MEDS ORDERED: LASIX IVP ONE ×3 (08:14→21:00)
[2016-11-22] MEDS: MUCOMYST 20% 200 MG/ML NEB SCH ×4 (08:40→22:00)
[2016-11-22] MEDS: XOPENEX 1.25 MG/3 ML NEBULE NEB SCH ×4 (08:40→21:59)
[2016-11-22] MEDS: DECADRON JET NEB NEB SCH ×4 (08:46→21:59)
[2016-11-22 09:27] LABS: ABG BASE EXCESS -8.2 mmol/L (-2.0-2.0)
[2016-11-22 09:29] LABS: ABG ALLEN TEST POS; ABG HCO3 14.9 mmol/L (22-26)
[2016-11-22 09:33] LABS: ALBUMIN 2.8 g/dL (3.4-5.0); CALCIUM 9.2 mg/dL (8.5-10.1); CARBON DIOXIDE 19.1 mmol/L (21-32); COR CA(FOR HYPOALB) 10.2 mg/dL (8.5-10.1); CREATININE 2.2 mg/dL (0.70-1.30); TOTAL PROTEIN 7.8 g/dL (6.4-8.2)
[2016-11-22] MEDS: VALIUM INJ IVP PRN (09:41)
[2016-11-22 09:51] LABS: BASOPHILS # (AUTO) 0.1 X10^3/uL (0.0-0.1); BASOPHILS % (AUTO) 0.4 % (0.2-1.0); EOSINOPHILS # (AUTO) 0.2 x10^3/uL (0.0-0.2); HEMATOCRIT 35.2 % (42.0-54.0); HEMOGLOBIN 11.7 g/dL (13.5-18.0); LYMPHOCYTES # (AUTO) 0.8 X10^3/uL (1.3-2.9); MEAN CORPUSCULAR HEMOGLOBIN 27.9 pg (27.0-34.0); MEAN CORPUSCULAR HGB CONC 33.1 g/dL (33.0-35.0); MEAN CORPUSCULAR VOLUME 84.2 fL (80.0-100.0); MEAN PLATELET VOLUME 7.3 fL (7.4-11.0); MONOCYTES # (AUTO) 0.7 x10^3/uL (0.3-0.8); MONOCYTES % (AUTO) 3.4 % (0.0-13.0); NEUTROPHILS # (AUTO) 18.2 x10^3/uL (2.2-4.8); NEUTROPHILS % (AUTO) 91.2 % (42.0-75.0); PLATELET COUNT 309 X10^3/uL (150.0-450.0); RED BLOOD COUNT 4.19 X10^6/uL (4.7-6.0); RED CELL DISTRIBUTION WIDTH 17.3 % (11.6-16.5)
[2016-11-22 10:13] LABS: BAND NEUTROPHILS % 4 % (0-10); PLATELET MORPHOLOGY COMMENT NORMAL (NORMAL)
--- NOTE | 2016-11-22 10:45 | PCM.PROG ---
Progress Note - Progress Note for Day of Date: 11/22/16 - Subjective Subjective: PATIENT IS NOTED WITH A DESATURATION INTO THE 70'S WITH NON- REBREATHER. AT BEDSIDE. RESPIRATORY DISTRESS IS NOTED. LASIX 40MG IV ADMINISTERED. PATIENT CONTINUES WITH ACEVES AND OUTPUT IS INCREASING WITH IV LASIX. AFTER IV LASIX, RESPIRATIONS WERE LESS LABORED. SOFT RESTRAINTS WERE APPLIED LAST NIGHT DUE TO PATIENT PULLING OXYGEN MASK OFF AND PULLING AT IV. HE CONTINUES WITH SOME CONFUSION THIS MORNING. PATIENT IS NOTED WITH A TEMPERATURE OF 101.2F THROUGH THE NIGHT. PATIENT CONTINUES WITH COUGH AND CHEST CONGESTION. PATIENT CONTINUES ON IV ANTIBIOTICS AND AGGRESSIVE NEB TREATMENTS FOR BILATERAL PNEUMONIA. MUCOMYST AND DECADRON WERE ADDED TO NEB TREATMENTS YETERDAY. WE DISCUSS PATIENT'S CONDITION AND RESUSCITATION STATUS. REPORTS SHE WANTS ALL MEASURES TAKEN TO SUSTAIN LIFE. PATIENT REMAINS FULL CODE STATUS. PATIENT RECEIVED TWO UNITS PACKED RED BLOOD CELLS AND HGB IMPROVED FROM 7.4 TO 11.7 THIS MORNING. PATIENT CONTINUES WITH POOR APPETITE DUE TO RESPIRATORY EFFORT AND HE CONTINUES ON TPN TODAY. A PICC LINE WAS PLACED YESTERDAY FOR TPN AND BLOOD TRANSFUSION. ON AUSCULTATION, LUNGS WITH COARSE WHEEZING AND RALES THROUGHOUT. CBC WNL EXCEPT: WBC 20.0, H/H 11.7/35.2. CMP WNL EXCEPT: POTASSIUM 5.6, CARBON DIOXIDE 19.1, BUN/CREAT 42/2.20, GFR 31 , ALBUMIN 2.8. ABG ABNORMALS: PCO2 24.0, PO2 50.0, HCO3 14.9, O2 SATURATION 85.0, FIO2 100.0. CHEST XRAY REPORTS: CARDIOMEGALY WITH PULMONARY VENOUS CONGESTION. WE WILL CONTINUE AGGRESSIVE PULMONARY TOILETING, START BIPAP, ADMINISTER LASIX IV, AND MONITOR CLOSELY. WE WILL FOLLOW UP IN AM WITH LABS, CHEST XRAY, AND ABG. - Past Medical Family Social History Past Med/Fam/Surg Hx: No changes since H&P Allergies: Allergies No Known Drug Allergy Allergy (Verified 10/31/16 10:46) - Review of Systems ROS: No change since H&P - Vital Signs and I&O's Vital Signs: Temperature 1 F Pulse Rate [Left Brachial] 84 Pulse Rate 105 Respiratory Rate 23 Blood Pressure [Right Arm] 158/65 O2 Sat by Pulse Oximetry 94 Intake and Output: Intake & Output 05/0611/20/16 11/21/16 11/22/16 11:59 11:59 11:59 11:59 Intake Total 7341 4289 5088 Output Total 8857 [id number] [id number] [place] [phone] - Physical Exam Oriented: Person Eyes: Normal. negative: Blurred Vision, Diplopia, Discharge, Pain, Redness, Photophobia Ear: Normal. negative: Swelling, Ecchymosis, Hemotypanum, Abrasion, Laceration Nose: Normal. negative: Injected, Discharge, Blood Throat: Red, Dry. negative: Tonsillar Hypertrophy, Exudate Respiratory: Generalized, Wheezes, Rales Cardiovascular: Normal. negative: Murmur, Edema : Normal. negative: Dysuria, Hematuria, Frequency, Testicular Pain Auscultation: Bowel Sounds: Normal. negative: Bruit Palpation: Normal. negative: Spleen Enlarged, Liver Enlarged, Mass Pulsatile Tenderness: negative: Rebound, Guarding, Rigidity Skin: Normal. negative: Diaphoresis, Wound, Bruising, Ecchymosis Musculoskeletal: Instability Psychiatric: Normal Mood Description: Calm Affect: Normal Speech Pattern: Aphasic - Laboratory and Diagnostics Result Diagrams: 11/22/16 08:57 11/22/16 08:57 Labs: 11/19/16 05:33 Sputum - Expectorated Sputum Sputum Culture - Final 11/19/16 05:33 Sputum - Expectorated Sputum - Final Laboratory WBC 20.0 X10^3/uL (3.6-10.0) H 11/22/16 08:57 RBC 4.19 X10^6/uL (4.7-6.0) L 11/22/16 08:57 Hgb 11.7 g/dL (13.5-18.0) L 11/22/16 08:57 Hct 35.2 % (42.0-54.0) L 11/22/16 08:57 MCV 84.2 fL (80.0-100.0) 11/22/16 08:57 MCH 27.9 pg (27.0-34.0) 11/22/16 08:57 MCHC 33.1 g/dL (33.0-35.0) 11/22/16 08:57 RDW 17.3 % (11.6-16.5) H 11/22/16 08:57 Plt Count 309 X10^3/uL (150.0-450.0) 11/22/16 08:57 Plt Count Comment Adequate (ADEQUATE) 11/22/16 08:57 MPV 7.3 fL (7.4-11.0) L 11/22/16 08:57 Neut % 91.2 % (42.0-75.0) H 11/22/16 08:57 Lymph % 4.0 % (21.0-51.0) L 11/22/16 08:57 [place] % 3.4 % (0.0-13.0) 11/22/16 08:57 Eos % 1.0 % (0.9-2.9) 11/22/16 08:57 Baso % 0.4 % (0.2-1.0) 11/22/16 08:57 Neut # 18.2 x10^3/uL (2.2-4.8) H 11/22/16 08:57 Lymph # 0.8 X10^3/uL (1.3-2.9) L 11/22/16 08:57 [place] # 0.7 x10^3/uL (0.3-0.8) 11/22/16 08:57 Eos # 0.2 x10^3/uL (0.0-0.2) 11/22/16 08:57 Baso # 0.1 X10^3/uL (0.0-0.1) 11/22/16 08:57 Absolute Nucleated RBC 0.0 /100WBC 11/22/16 08:57 Total Counted 100 11/22/16 08:57 Neutrophils % (Manual) 85 % (39-76) H 11/22/16 08:57 Band Neutrophils % 4 % (0-10) 11/22/16 08:57 Lymphocytes % (Manual) 9 % (13-43) L 11/22/16 08:57 Monocytes % (Manual) 2 % (4-9) L 11/22/16 08:57 Plt Morphology Comment Normal (NORMAL) 11/22/16 08:57 RBC Morphology Normal (NORMAL) 11/22/16 08:57 INR Target Range - 11/19/16 03:45 INR 1.35 (0.8-1.3) H 11/19/16 03:45 PTT 22.4 SECONDS (22.9-36.5) L 11/19/16 03:45 PTT Comment - 11/19/16 03:45 D-Dimer 2730 ng/mL (0-400) H* 11/19/16 03:45 Sample Site Rra 11/22/16 09:15 ABG pH 7.400 (7.35-7.45) 11/22/16 09:15 ABG pCO2 24.0 mmHg (35.0-45.0) L 11/22/16 09:15 ABG pO2 50.0 mmHg (80.0-100.0) L 11/22/16 09:15 ABG HCO3 14.9 mmol/L (22-26) L* 11/22/16 09:15 ABG O2 Saturation 85.0 % (90-100) L 11/22/16 09:15 ABG Base Excess -8.2 mmol/L (-2.0-2.0) L 11/22/16 09:15 Jim Test Pos 11/22/16 09:15 A-a Gradient 633.0 mmHg 11/22/16 09:15 FiO2 100.000 11/22/16 09:15 Blood Gas Comments Martin well 11/22/16 09:15 Sodium 139 mmol/L (136-145) 11/22/16 08:57 Corrected Sodium 143 mmol/L (136-145) 11/22/16 08:57 Potassium 5.6 mmol/L (3.5-5.1) H 11/22/16 08:57 Chloride 107 mmol/L (98-107) 11/22/16 08:57 Carbon Dioxide 19.1 mmol/L (21-32) L 11/22/16 08:57 BUN 42 mg/dL (7-18) H 11/22/16 08:57 Creatinine 2.20 mg/dL (0.70-1.30) H 11/22/16 08:57 Est GFR (MDRD) Af Amer 38 (>60) L 11/22/16 08:57 Est GFR (MDRD) Non-Af 31 (>60) L 11/22/16 08:57 Glucose 276 mg/dL (65-99) H 11/22/16 08:57 Lactic Acid 1.8 mmol/L (0.4-2.0) 11/19/16 05:15 Calcium 9.2 mg/dL (8.5-10.1) 11/22/16 08:57 Corrected Calcium 10.2 mg/dL (8.5-10.1) H 11/22/16 08:57 Magnesium 3.9 mg/dL (1.7-2.9) H 11/19/16 03:45 Total Bilirubin 0.90 mg/dL (0.2-1.0) 11/22/16 08:57 AST 38 Units/L (15-37) H 11/22/16 08:57 ALT 40 Units/L (12-78) 11/22/16 08:57 Alkaline Phosphatase 117 Units/L (46-116) H 11/22/16 08:57 Creatine Kinase 256 Units/L (39-308) 11/19/16 16:37 CK-MB (CK-2) 2.6 ng/mL (0-4.0) 11/19/16 16:37 CK/CKMB % Calc 1.0 % (<4) 11/19/16 16:37 Troponin I 0.02 ng/mL (0-1.5) 11/19/16 16:37 B-Natriuretic Peptide 216 pg/mL (0-79) H 11/19/16 05:25 Total Protein 7.8 g/dL (6.4-8.2) 11/22/16 08:57 Albumin 2.8 g/dL (3.4-5.0) L 11/22/16 08:57 Globulin 5.0 g/dL (2.5-4.5) H 11/22/16 08:57 Albumin/Globulin Ratio 0.6 Ratio (1.1-2.1) L 11/22/16 08:57 Triglycerides 165 mg/dL (0-150) H 11/20/16 03:45 Cholesterol 101 mg/dL (0-200) 11/20/16 03:45 LDL Cholesterol, Calc 56 mg/dL (0-100) 11/20/16 03:45 HDL Cholesterol 12 mg/dL (40-60) L 11/20/16 03:45 Cholesterol/HDL Ratio 8.4 (0.0-5.0) H 11/20/16 03:45 Specimen Type Catherized urine 11/19/16 04:58 Urine Color Yellow (YELLOW) 11/19/16 04:58 Urine Appearance Slightly hazy (CLEAR) 11/19/16 04:58 Urine pH 6.0 (5.0 - 8.0) 11/19/16 04:58 Ur Specific [place] 1.015 (1.000-1.030) 11/19/16 04:58 Urine Protein 2+ (NEGATIVE) 11/19/16 04:58 Urine Glucose (UA) Negative (NEGATIVE) 11/19/16 04:58 Urine Ketones Negative (NEGATIVE) 11/19/16 04:58 Urine Occult Blood 1+ (NEGATIVE) 11/19/16 04:58 Urine Nitrite Negative (NEGATIVE) 11/19/16 04:58 Urine Bilirubin 1+ (NEGATIVE) 11/19/16 04:58 Urine Urobilinogen Normal (NORMAL) 11/19/16 04:58 Ur Leukocyte Esterase Negative (NEGATIVE) 11/19/16 04:58 Urine RBC 0-3 /HPF (NEGATIVE) 11/19/16 04:58 Urine WBC 0-3 /HPF (NEGATIVE) 11/19/16 04:58 Ur Squamous Epith Cells Rare /HPF (NEGATIVE) 11/19/16 04:58 Amorphous Sediment Trace /HPF (NEGATIVE) 11/19/16 04:58 Urine Bacteria Negative /HPF (NEGATIVE) 11/19/16 04:58 Ur Culture Indicated? No/not indicated 11/19/16 04:58 Blood Type A NEGATIVE 11/21/16 10:13 Antibody Screen Negative 11/21/16 10:13 Crossmatch See Detail 11/21/16 10:13 - Plan (1) Congestive heart failure Status: Chronic Qualifiers: Congestive heart failure type: C Congestive heart failure chronicity: C Plan: START LASIX IV, BIPAP, SUPPLEMENTAL OXYGEN, MONITOR CHEST XRAY. (2) Pneumonia Status: Acute Qualifiers: Pneumonia type: P Aspiration pneumonia type: unspecified Laterality: bilateral Lung location: L Plan: CONTINUE PNEUMONIA PROTOCOL: IV ANTIBIOTICS, AGGRESSIVE NEB TREATMENTS, MONITOR LABS AND CHEST XRAY. (3) Anemia Status: Acute Qualifiers: Anemia type: iron deficiency Iron deficiency anemia type: inadequate dietary iron intake Vitamin B12 deficiency anemia type: V Folate deficiency anemia type: F Bone marrow failure anemia type: B Hemolytic anemia type: H Other causes of anemia: O Qualified Code(s): D50.8 - Other iron deficiency anemias Plan: CONTINUE TO MONITOR. (4) Constipation Status: Acute Qualifiers: Constipation type: unspecified constipation type Qualified Code(s): K59.00 - Constipation, unspecified Plan: CONTINUE LINZESS, CONTINUE COLACE (5) Acute respiratory disease Status: Acute Plan: ABOVE. (6) Diabetes mellitus, type 2 Status: Chronic Qualifiers: Diabetes mellitus complication status: without complication Diabetes mellitus complication detail: D Diabetic retinopathy severity: D Proliferative retinopathy type: P Diabetes mellitus macular edema: D Diabetes mellitus longterm insulin use: with longterm use Laterality: L Chronic kidney disease stage: C Qualified Code(s): E11.9 - Type 2 diabetes mellitus without complications; Z79.4 - intermediate card tender (current) use of insulin (7) Essential hypertension Status: Chronic (8) GERD (gastroesophageal reflux disease) Status: Chronic Qualifiers: Esophagitis presence: esophagitis presence not specified Qualified Code(s) : K21.9 - Gastro-esophageal reflux disease without esophagitis (9) History of CVA (cerebrovascular accident) Status: Chronic (10) Hyperlipidemia Status: Chronic Qualifiers: Hyperlipidemia type: mixed hyperlipidemia Qualified Code(s): E78.2 - Mixed hyperlipidemia (11) Vascular dementia Status: Chronic Qualifiers: Dementia behavioral disturbance: without behavioral disturbance Qualified Code(s): F01.50 - Vascular dementia without behavioral disturbance
[2016-11-22] MEDS: COLACE CAP 100 MG PO SCH ×2 (12:44→22:23)
[2016-11-22] MEDS: ECOTRIN TAB 325 MG PO SCH (12:45)
[2016-11-22] MEDS: LINZESS PO SCH (12:46)
[2016-11-22] MEDS: HEMOCYTE-PLUS PO SCH (12:46)
[2016-11-22] MEDS: MEGACE PO SCH (12:48)
[2016-11-22] MEDS: LOPRESSOR TAB 50 MG PO SCH ×2 (12:48→22:26)
[2016-11-22] MEDS: ROBITUSSIN DM PO SCH ×4 (12:49→22:33)
[2016-11-22] MEDS: SINGULAIR TAB 10 MG PO SCH (12:49)
[2016-11-22] MEDS: SYNTHROID 50 mcg TAB PO SCH (12:50)
[2016-11-22] MEDS: ZOLOFT PO SCH ×2 (12:50→22:27)
[2016-11-22] MEDS: ZyPREXA TAB 5 MG PO SCH ×2 (12:51→22:27)
[2016-11-22] MEDS: LOVENOX INJ 30 MG SYR SC SCH (12:53)
[2016-11-22] MEDS ORDERED: ZOFRAN INJ 4 MG VIAL IVP ONE (14:11)
[2016-11-22] MEDS ORDERED: ZOFRAN INJ 4 MG VIAL ONE (14:11)
[2016-11-22] MEDS: ZOFRAN INJ 4 MG VIAL IVP PRN (14:14)
[2016-11-22] MEDS: ALBUMIN HUMAN 25%- 100ML 100 ML IV SCH (14:15)
[2016-11-22] MEDS: FLONASE NASAL SPRAY ENOSTRIL SCH ×2 (14:17→22:20)
[2016-11-22] MEDS: MORPHINE SULFATE INJ 4 MG IVP PRN (14:18)
[2016-11-22] MEDS ORDERED: HumuLIN R ONE (17:39)
[2016-11-22] MEDS: HumuLIN R SUBCUT PRN ×3 (17:55→22:08)
[2016-11-22] MEDS ORDERED: SNACK - Diabetic Appropriate PO SCH (20:00)
[2016-11-22] MEDS ORDERED: ZOLOFT PO ONE (21:21)
[2016-11-22] MEDS ORDERED: NS 250 ML IV 250 ML IV ONE (21:48)
[2016-11-22] MEDS: TYLENOL 325 MG TAB PO PRN (21:55)
[2016-11-22] MEDS: LEVEMIR SC SCH (21:57)
[2016-11-22] MEDS: SNACK - Diabetic Appropriate PO SCH (22:21)
[2016-11-22] MEDS: DULCOLAX TAB EC 5 MG PO SCH (22:23)
[2016-11-22] MEDS: FLOMAX PO SCH (22:24)
[2016-11-22] MEDS: LIPITOR TAB 20 MG PO SCH (22:26)
[2016-11-22] MEDS: MIRALAX POWDER (1 DOSE 17GM) PO SCH (22:32)
[2016-11-23] MEDS: LEVAQUIN PREMIX IV 250 MG 250 MG/50 ML BAG IV SCH (05:02)
[2016-11-23] MEDS: ZOSYN VIAL 2.25 GM 2.25 GM in NS 100 ML IV + SPIKE MINIBAG* 100 ML IV SCH ×3 (05:40→21:46)
[2016-11-23] MEDS: ZANAFLEX PO SCH ×3 (06:35→21:46)
[2016-11-23] MEDS: CLINIMIX 4.25 %/10 % 1,000 ML with MVI INJ (ADULT) 10 ML, TRACE ELEMENTS INJ 10 ML, TPN... IV SCH ×20 (06:44→19:17)
[2016-11-23 06:59] LABS: BASOPHILS % (AUTO) 0.2 % (0.2-1.0); EOSINOPHILS # (AUTO) 0.2 x10^3/uL (0.0-0.2); EOSINOPHILS % (AUTO) 1.1 % (0.9-2.9); HEMATOCRIT 29.8 % (42.0-54.0); HEMOGLOBIN 9.7 g/dL (13.5-18.0); LYMPHOCYTES # (AUTO) 0.7 X10^3/uL (1.3-2.9); LYMPHOCYTES % (AUTO) 4.1 % (21.0-51.0); MEAN CORPUSCULAR HEMOGLOBIN 27.3 pg (27.0-34.0); MEAN CORPUSCULAR HGB CONC 32.5 g/dL (33.0-35.0); MEAN CORPUSCULAR VOLUME 84.2 fL (80.0-100.0); MEAN PLATELET VOLUME 7.1 fL (7.4-11.0); MONOCYTES # (AUTO) 0.5 x10^3/uL (0.3-0.8); MONOCYTES % (AUTO) 3.1 % (0.0-13.0); NEUTROPHILS # (AUTO) 15.1 x10^3/uL (2.2-4.8); NEUTROPHILS % (AUTO) 91.5 % (42.0-75.0); PLATELET COUNT 240 X10^3/uL (150.0-450.0); RED BLOOD COUNT 3.54 X10^6/uL (4.7-6.0); RED CELL DISTRIBUTION WIDTH 17.8 % (11.6-16.5); WHITE BLOOD COUNT 16.5 X10^3/uL (3.6-10.0)
--- NOTE | 2016-11-23 07:06 | RAD ---
HISTORY: Follow up pneumonia Study: Chest one view Comparison: November 22, 2016 Findings: The patient is rotated to the left. There is a left-sided PICC line with its tip in the expected pos ition of the superior vena cava. The heart remains enlarged. Pulmonary venous congestion is present. No definite interstitial or alveolar edema is identified. No definite alveolar infiltrates or areas of consolidation are identified. No pleural effusions are noted. The bony thorax is unremarkable. IMPRESSION: No significant change from the prior examination Reported By:
[2016-11-23 07:08] LABS: ALBUMIN 2.7 g/dL (3.4-5.0); CARBON DIOXIDE 17.8 mmol/L (21-32); CREATININE 2.08 mg/dL (0.70-1.30); TOTAL PROTEIN 7.1 g/dL (6.4-8.2)
[2016-11-23 07:12] LABS: BAND NEUTROPHILS % 7 % (0-10)
[2016-11-23 07:13] LABS: HYPOCHROMASIA SLIGHT; PLATELET MORPHOLOGY COMMENT NORMAL (NORMAL)
[2016-11-23] MEDS: VALIUM INJ IVP PRN (08:42)
[2016-11-23] MEDS: ZOFRAN INJ 4 MG VIAL IVP PRN (08:43)
[2016-11-23] MEDS: LOVENOX INJ 30 MG SYR SC SCH (09:02)
[2016-11-23] MEDS: ALBUMIN HUMAN 25%- 100ML 100 ML IV SCH (09:03)
[2016-11-23] MEDS: COLACE CAP 100 MG PO SCH ×2 (09:10→20:36)
[2016-11-23] MEDS: ROBITUSSIN DM PO SCH ×4 (09:12→20:48)
[2016-11-23] MEDS ORDERED: ZOLOFT PO ONE ×2 (09:21→20:10)
[2016-11-23] MEDS: HumuLIN R SUBCUT PRN ×2 (09:25→13:33)
[2016-11-23] MEDS: DECADRON JET NEB NEB SCH ×4 (09:33→20:19)
[2016-11-23] MEDS: ECOTRIN TAB 325 MG PO SCH (09:33)
[2016-11-23] MEDS: XOPENEX 1.25 MG/3 ML NEBULE NEB SCH ×4 (09:33→20:18)
[2016-11-23] MEDS: MUCOMYST 20% 200 MG/ML NEB SCH ×4 (09:33→20:19)
[2016-11-23] MEDS: MORPHINE SULFATE INJ 4 MG IVP PRN ×3 (09:44→20:31)
[2016-11-23] MEDS: FLONASE NASAL SPRAY ENOSTRIL SCH ×2 (10:23→20:46)
[2016-11-23] MEDS: ZyPREXA TAB 5 MG PO SCH ×2 (10:24→20:55)
[2016-11-23] MEDS: ZOLOFT PO SCH ×2 (10:25→20:41)
[2016-11-23] MEDS: SINGULAIR TAB 10 MG PO SCH (10:25)
[2016-11-23] MEDS: SYNTHROID 50 mcg TAB PO SCH (10:25)
[2016-11-23] MEDS: MEGACE PO SCH (10:26)
[2016-11-23] MEDS: LOPRESSOR TAB 50 MG PO SCH ×2 (10:26→20:41)
[2016-11-23] MEDS: LINZESS PO SCH (10:27)
[2016-11-23] MEDS: HEMOCYTE-PLUS PO SCH (10:28)
--- NOTE | 2016-11-23 13:38 | PCM.PROG ---
Progress Note - Progress Note for Day of Date: 11/23/16 - Subjective Subjective: PATIENT IS NOTED ON BIPAP ON MORNING ROUNDS. HIS RESPIRATORY EFFORT HAS SLIGHTLY IMPROVED SINCE YESTERDAY. ON AUSCULTATION, LUNGS CONTINUED WITH WHEEZING BILATERALLY. AT BEDSIDE. PATIENT CONTINUES WITH ACEVES. HE CONTINUES WITH SOME CONFUSION THIS MORNING. PATIENT WAS AFEBRILE THROUGH THE NIGHT. PATIENT CONTINUES WITH COUGH AND CHEST CONGESTION. PATIENT CONTINUES ON IV ANTIBIOTICS AND AGGRESSIVE NEB TREATMENTS FOR BILATERAL PNEUMONIA. WE WILL CONTINUE MUCOMYST AND DECADRON TO NEB TREATMENTS. PATIENT REMAINS FULL CODE STATUS. PATIENT CONTINUES WITH POOR APPETITE DUE TO RESPIRATORY EFFORT AND HE CONTINUES ON TPN TODAY. CBC WNL EXCEPT: WBC 16.5, H/H 9.7/29.8. CMP WNL EXCEPT: CARBON DIOXIDE 17.5, BUN/CREAT 45/2.08, GFR 33, ALBUMIN 2.7. CHEST XRAY REPORTS: NO CHANGES SINCE PRIOR EXAMINATION. WE WILL CONTINUE AGGRESSIVE PULMONARY TOILETING, CONTINUE BIPAP, AND MONITOR CLOSELY. WE WILL FOLLOW UP IN AM WITH LABS AND CHEST XRAY. - Past Medical Family Social History Past Med/Fam/Surg Hx: No changes since H&P Allergies: Allergies No Known Drug Allergy Allergy (Verified 10/31/16 10:46) - Review of Systems ROS: No change since H&P - Vital Signs and I&O's Vital Signs: Temperature 97.4 F Pulse Rate [Left Brachial] 101 Pulse Rate 102 Respiratory Rate 28 Blood Pressure [Right Arm] 134/61 Blood Pressure [Left Arm] 115/65 O2 Sat by Pulse Oximetry 100 Intake and Output: Intake & Output 11/21/16 11/22/16 11/23/16 11/24/16 11:59 11:59 11:59 11:59 Intake Total 2344 2684 2290 Output Total 1999 16832 8960 Balance 535 [phone] -[phone] - Physical Exam Oriented: Person Eyes: Normal. negative: Blurred Vision, Diplopia, Discharge, Pain, Redness, Photophobia Ear: Normal. negative: Swelling, Ecchymosis, Hemotypanum, Abrasion, Laceration Nose: Normal. negative: Injected, Discharge, Blood Throat: Red, Dry. negative: Tonsillar Hypertrophy, Exudate Respiratory: Generalized, Wheezes, Rales Cardiovascular: Normal. negative: Murmur, Edema : Normal. negative: Dysuria, Hematuria, Frequency, Testicular Pain Auscultation: Bowel Sounds: Normal. negative: Bruit Palpation: Normal. negative: Spleen Enlarged, Liver Enlarged, Mass Pulsatile Tenderness: negative: Rebound, Guarding, Rigidity Skin: Normal. negative: Diaphoresis, Wound, Bruising, Ecchymosis Musculoskeletal: Instability Psychiatric: Normal Mood Description: Calm Affect: Normal Speech Pattern: Aphasic - Laboratory and Diagnostics Result Diagrams: 11/23/16 06:39 11/23/16 06:39 Labs: 11/19/16 05:33 Sputum - Expectorated Sputum Sputum Culture - Final 11/19/16 05:33 Sputum - Expectorated Sputum - Final Laboratory WBC 16.5 X10^3/uL (3.6-10.0) H 11/23/16 06:39 RBC 3.54 X10^6/uL (4.7-6.0) L 11/23/16 06:39 Hgb 9.7 g/dL (13.5-18.0) L 11/23/16 06:39 Hct 29.8 % (42.0-54.0) L 11/23/16 06:39 MCV 84.2 fL (80.0-100.0) 11/23/16 06:39 MCH 27.3 pg (27.0-34.0) 11/23/16 06:39 MCHC 32.5 g/dL (33.0-35.0) L 11/23/16 06:39 RDW 17.8 % (11.6-16.5) H 11/23/16 06:39 Plt Count 240 X10^3/uL (150.0-450.0) 11/23/16 06:39 Plt Count Comment Adequate (ADEQUATE) 11/23/16 06:39 MPV 7.1 fL (7.4-11.0) L 11/23/16 06:39 Neut % 91.5 % (42.0-75.0) H 11/23/16 06:39 Lymph % 4.1 % (21.0-51.0) L 11/23/16 06:39 [place] % 3.1 % (0.0-13.0) 11/23/16 06:39 Eos % 1.1 % (0.9-2.9) 11/23/16 06:39 Baso % 0.2 % (0.2-1.0) 11/23/16 06:39 Neut # 15.1 x10^3/uL (2.2-4.8) H 11/23/16 06:39 Lymph # 0.7 X10^3/uL (1.3-2.9) L 11/23/16 06:39 [place] # 0.5 x10^3/uL (0.3-0.8) 11/23/16 06:39 Eos # 0.2 x10^3/uL (0.0-0.2) 11/23/16 06:39 Baso # 0.0 X10^3/uL (0.0-0.1) 11/23/16 06:39 Absolute Nucleated RBC 0.0 /100WBC 11/23/16 06:39 Total Counted 100 11/23/16 06:39 Neutrophils % (Manual) 82 % (39-76) H 11/23/16 06:39 Band Neutrophils % 7 % (0-10) 11/23/16 06:39 Lymphocytes % (Manual) 7 % (13-43) L 11/23/16 06:39 Monocytes % (Manual) 4 % (4-9) 11/23/16 06:39 Eosinophils % (Manual) Cancelled 11/23/16 03:50 Basophils % (Manual) Cancelled 11/23/16 03:50 Metamyelocytes % Cancelled 11/23/16 03:50 Myelocytes % Cancelled 11/23/16 03:50 Promyelocytes % Cancelled 11/23/16 03:50 Nucleated RBCs Cancelled 11/23/16 03:50 Atypical Lymphocytes Cancelled 11/23/16 03:50 Blast Cells Cancelled 11/23/16 03:50 Smudge Cells Cancelled 11/23/16 03:50 Toxic Granulation Cancelled 11/23/16 03:50 Dohle Bodies Cancelled 11/23/16 03:50 Mickey Rods Cancelled 11/23/16 03:50 Plt Clumps, EDTA Cancelled 11/23/16 03:50 Giant Platelets Cancelled 11/23/16 03:50 Plt Morphology Comment Normal (NORMAL) 11/23/16 06:39 RBC Morphology Abnormal (NORMAL) 11/23/16 06:39 Dimorphic RBCs Cancelled 11/23/16 03:50 Polychromasia Cancelled 11/23/16 03:50 Hypochromasia Slight A 11/23/16 06:39 Poikilocytosis Cancelled 11/23/16 03:50 Basophilic Stippling Cancelled 11/23/16 03:50 Anisocytosis Cancelled 11/23/16 03:50 Microcytosis Cancelled 11/23/16 03:50 Macrocytosis Cancelled 11/23/16 03:50 Spherocytes Cancelled 11/23/16 03:50 Pappenheimer Bodies Cancelled 11/23/16 03:50 Sickle Cells Cancelled 11/23/16 03:50 Target Cells Cancelled 11/23/16 03:50 Tear Drop Cells Cancelled 11/23/16 03:50 Ovalocytes Cancelled 11/23/16 03:50 Stomatocytes Cancelled 11/23/16 03:50 Helmet Cells Cancelled 11/23/16 03:50 Villaseñor-Luckey Bodies Cancelled 11/23/16 03:50 [place] Rings Cancelled 11/23/16 03:50 Gorin Cells Cancelled 11/23/16 03:50 Crenated Cell Cancelled 11/23/16 03:50 Acanthocytes (Spur) Cancelled 11/23/16 03:50 Rouleaux Cancelled 11/23/16 03:50 Schistocytes Cancelled 11/23/16 03:50 INR Target Range - 11/19/16 03:45 INR 1.35 (0.8-1.3) H 11/19/16 03:45 PTT 22.4 SECONDS (22.9-36.5) L 11/19/16 03:45 PTT Comment - 11/19/16 03:45 D-Dimer 2730 ng/mL (0-400) H* 11/19/16 03:45 Sample Site Rra 11/22/16 09:15 ABG pH 7.400 (7.35-7.45) 11/22/16 09:15 ABG pCO2 24.0 mmHg (35.0-45.0) L 11/22/16 09:15 ABG pO2 50.0 mmHg (80.0-100.0) L 11/22/16 09:15 ABG HCO3 14.9 mmol/L (22-26) L* 11/22/16 09:15 ABG O2 Saturation 85.0 % (90-100) L 11/22/16 09:15 ABG Base Excess -8.2 mmol/L (-2.0-2.0) L 11/22/16 09:15 Jim Test Pos 11/22/16 09:15 A-a Gradient 633.0 mmHg 11/22/16 09:15 FiO2 100.000 11/22/16 09:15 Blood Gas Comments Martin well 11/22/16 09:15 Sodium 139 mmol/L (136-145) 11/23/16 06:39 Corrected Sodium 144 mmol/L (136-145) 11/23/16 06:39 Potassium 4.9 mmol/L (3.5-5.1) 11/23/16 06:39 Chloride 106 mmol/L (98-107) 11/23/16 06:39 Carbon Dioxide 17.8 mmol/L (21-32) L 11/23/16 06:39 BUN 45 mg/dL (7-18) H 11/23/16 06:39 Creatinine 2.08 mg/dL (0.70-1.30) H 11/23/16 06:39 Est GFR (MDRD) Af Amer 40 (>60) L 11/23/16 06:39 Est GFR (MDRD) Non-Af 33 (>60) L 11/23/16 06:39 Glucose 312 mg/dL (65-99) H 11/23/16 06:39 Lactic Acid 1.8 mmol/L (0.4-2.0) 11/19/16 05:15 Calcium 9.0 mg/dL (8.5-10.1) 11/23/16 06:39 Corrected Calcium 10.0 mg/dL (8.5-10.1) 11/23/16 06:39 Magnesium 3.9 mg/dL (1.7-2.9) H 11/19/16 03:45 Total Bilirubin 0.60 mg/dL (0.2-1.0) 11/23/16 06:39 AST 45 Units/L (15-37) H 11/23/16 06:39 ALT 34 Units/L (12-78) 11/23/16 06:39 Alkaline Phosphatase 112 Units/L (46-116) 11/23/16 06:39 Creatine Kinase 256 Units/L (39-308) 11/19/16 16:37 CK-MB (CK-2) 2.6 ng/mL (0-4.0) 11/19/16 16:37 CK/CKMB % Calc 1.0 % (<4) 11/19/16 16:37 Troponin I 0.02 ng/mL (0-1.5) 11/19/16 16:37 B-Natriuretic Peptide 216 pg/mL (0-79) H 11/19/16 05:25 Total Protein 7.1 g/dL (6.4-8.2) 11/23/16 06:39 Albumin 2.7 g/dL (3.4-5.0) L 11/23/16 06:39 Globulin 4.4 g/dL (2.5-4.5) 11/23/16 06:39 Albumin/Globulin Ratio 0.6 Ratio (1.1-2.1) L 11/23/16 06:39 Triglycerides 165 mg/dL (0-150) H 11/20/16 03:45 Cholesterol 101 mg/dL (0-200) 11/20/16 03:45 LDL Cholesterol, Calc 56 mg/dL (0-100) 11/20/16 03:45 HDL Cholesterol 12 mg/dL (40-60) L 11/20/16 03:45 Cholesterol/HDL Ratio 8.4 (0.0-5.0) H 11/20/16 03:45 Specimen Type Catherized urine 11/19/16 04:58 Urine Color Yellow (YELLOW) 11/19/16 04:58 Urine Appearance Slightly hazy (CLEAR) 11/19/16 04:58 Urine pH 6.0 (5.0 - 8.0) 11/19/16 04:58 Ur Specific [place] 1.015 (1.000-1.030) 11/19/16 04:58 Urine Protein 2+ (NEGATIVE) 11/19/16 04:58 Urine Glucose (UA) Negative (NEGATIVE) 11/19/16 04:58 Urine Ketones Negative (NEGATIVE) 11/19/16 04:58 Urine Occult Blood 1+ (NEGATIVE) 11/19/16 04:58 Urine Nitrite Negative (NEGATIVE) 11/19/16 04:58 Urine Bilirubin 1+ (NEGATIVE) 11/19/16 04:58 Urine Urobilinogen Normal (NORMAL) 11/19/16 04:58 Ur Leukocyte Esterase Negative (NEGATIVE) 11/19/16 04:58 Urine RBC 0-3 /HPF (NEGATIVE) 11/19/16 04:58 Urine WBC 0-3 /HPF (NEGATIVE) 11/19/16 04:58 Ur Squamous Epith Cells Rare /HPF (NEGATIVE) 11/19/16 04:58 Amorphous Sediment Trace /HPF (NEGATIVE) 11/19/16 04:58 Urine Bacteria Negative /HPF (NEGATIVE) 11/19/16 04:58 Ur Culture Indicated? No/not indicated 11/19/16 04:58 Blood Type A NEGATIVE 11/21/16 10:13 Antibody Screen Negative 11/21/16 10:13 Crossmatch See Detail 11/21/16 10:13 - Plan (1) Congestive heart failure Status: Chronic Qualifiers: Congestive heart failure type: C Congestive heart failure chronicity: C Plan: CONTINUE BIPAP, SUPPLEMENTAL OXYGEN, MONITOR CHEST XRAY. (2) Pneumonia Status: Acute Qualifiers: Pneumonia type: P Aspiration pneumonia type: unspecified Laterality: bilateral Lung location: L Plan: CONTINUE PNEUMONIA PROTOCOL: IV ANTIBIOTICS, AGGRESSIVE NEB TREATMENTS, MONITOR LABS AND CHEST XRAY. (3) Anemia Status: Acute Qualifiers: Anemia type: iron deficiency Iron deficiency anemia type: inadequate dietary iron intake Vitamin B12 deficiency anemia type: V Folate deficiency anemia type: F Bone marrow failure anemia type: B Hemolytic anemia type: H Other causes of anemia: O Qualified Code(s): D50.8 - Other iron deficiency anemias Plan: CONTINUE TO MONITOR. (4) Constipation Status: Acute Qualifiers: Constipation type: unspecified constipation type Qualified Code(s): K59.00 - Constipation, unspecified Plan: CONTINUE LINZESS, CONTINUE COLACE (5) Acute respiratory disease Status: Acute Plan: ABOVE. (6) Diabetes mellitus, type 2 Status: Chronic Qualifiers: Diabetes mellitus complication status: without complication Diabetes mellitus complication detail: D Diabetic retinopathy severity: D Proliferative retinopathy type: P Diabetes mellitus macular edema: D Diabetes mellitus nursing home insulin use: with nursing home use Laterality: L Chronic kidney disease stage: C Qualified Code(s): E11.9 - Type 2 diabetes mellitus without complications; Z79.4 - [facility] (current) use of insulin (7) Essential hypertension Status: Chronic (8) GERD (gastroesophageal reflux disease) Status: Chronic Qualifiers: Esophagitis presence: esophagitis presence not specified Qualified Code(s) : K21.9 - Gastro-esophageal reflux disease without esophagitis (9) History of CVA (cerebrovascular accident) Status: Chronic (10) Hyperlipidemia Status: Chronic Qualifiers: Hyperlipidemia type: mixed hyperlipidemia Qualified Code(s): E78.2 - Mixed hyperlipidemia (11) Vascular dementia Status: Chronic Qualifiers: Dementia behavioral disturbance: without behavioral disturbance Qualified Code(s): F01.50 - Vascular dementia without behavioral disturbance
[2016-11-23] MEDS: PEPCID 20 MG IV PREMIX* 20 MG/50 ML BAG IV SCH (16:51)
[2016-11-23] MEDS ORDERED: NS 250 ML IV 250 ML IV ONE (20:15)
[2016-11-23] MEDS: TYLENOL 325 MG TAB PO PRN (20:39)
[2016-11-23] MEDS: FLOMAX PO SCH (20:42)
[2016-11-23] MEDS: LIPITOR TAB 20 MG PO SCH (20:43)
[2016-11-23] MEDS: SNACK - Diabetic Appropriate PO SCH (20:48)
[2016-11-23] MEDS: DULCOLAX TAB EC 5 MG PO SCH (20:48)
[2016-11-23] MEDS: LEVEMIR SC SCH (20:49)
[2016-11-23] MEDS: MIRALAX POWDER (1 DOSE 17GM) PO SCH (20:56)
[2016-11-24] MEDS: CLINIMIX 4.25 %/10 % 1,000 ML with MVI INJ (ADULT) 10 ML, TRACE ELEMENTS INJ 10 ML, TPN... IV SCH ×15 (05:42→20:01)
[2016-11-24] MEDS: ZOSYN VIAL 2.25 GM 2.25 GM in NS 100 ML IV + SPIKE MINIBAG* 100 ML IV SCH ×3 (05:48→21:11)
[2016-11-24] MEDS: ZANAFLEX PO SCH ×4 (05:49→21:11)
[2016-11-24 06:14] LABS: ALBUMIN 2.7 g/dL (3.4-5.0); CALCIUM 9.1 mg/dL (8.5-10.1); CARBON DIOXIDE 15.9 mmol/L (21-32); COR CA(FOR HYPOALB) 10.1 mg/dL (8.5-10.1); CREATININE 1.83 mg/dL (0.70-1.30); TOTAL PROTEIN 6.9 g/dL (6.4-8.2)
[2016-11-24] MEDS: HumuLIN R SUBCUT PRN ×5 (06:14→20:49)
[2016-11-24 06:44] LABS: BASOPHILS % (AUTO) 0.3 % (0.2-1.0); EOSINOPHILS # (AUTO) 0.3 x10^3/uL (0.0-0.2); EOSINOPHILS % (AUTO) 1.6 % (0.9-2.9); HEMATOCRIT 27.8 % (42.0-54.0); HEMOGLOBIN 9.1 g/dL (13.5-18.0); LYMPHOCYTES # (AUTO) 0.6 X10^3/uL (1.3-2.9); LYMPHOCYTES % (AUTO) 3.5 % (21.0-51.0); MEAN CORPUSCULAR HEMOGLOBIN 27.4 pg (27.0-34.0); MEAN CORPUSCULAR HGB CONC 32.7 g/dL (33.0-35.0); MEAN CORPUSCULAR VOLUME 83.9 fL (80.0-100.0); MEAN PLATELET VOLUME 7.4 fL (7.4-11.0); MONOCYTES # (AUTO) 0.5 x10^3/uL (0.3-0.8); MONOCYTES % (AUTO) 3.3 % (0.0-13.0); NEUTROPHILS # (AUTO) 14.4 x10^3/uL (2.2-4.8); NEUTROPHILS % (AUTO) 91.3 % (42.0-75.0); PLATELET COUNT 235 X10^3/uL (150.0-450.0); RED BLOOD COUNT 3.31 X10^6/uL (4.7-6.0); WHITE BLOOD COUNT 15.8 X10^3/uL (3.6-10.0)
--- NOTE | 2016-11-24 06:55 | RAD ---
HISTORY: Pneumonia, cough, congestion Study: Single-view chest, done portably Comparison: 11/22 and 11/23 2016. Findings: Cardiac monitoring electrodes are noted on the chest. Trachea is midline. There is cardiomegaly with atherosclerotic calcification and uncoiling of the aortic arch. There is improved aeration bilatera lly with still some bronchitic appearing changes bilaterally. No consolidation, CHF, pleural fluid o r pneumothorax is seen. A left-sided PICC line is present with the tip in the right atrium. Osseous structures are intact. IMPRESSION: Hypertensive configuration. Improved aeration bilaterally with still some bronchitic appearing changes bilaterally. No consolida tion, CHF, pleural fluid or pneumothorax is seen. Reported By:
[2016-11-24 07:23] LABS: BAND NEUTROPHILS % 2 % (0-10)
[2016-11-24 07:24] LABS: PLATELET MORPHOLOGY COMMENT NORMAL (NORMAL)
[2016-11-24] MEDS ORDERED: ZOLOFT PO ONE ×2 (08:17→20:22)
[2016-11-24] MEDS: LOVENOX INJ 30 MG SYR SC SCH (08:35)
[2016-11-24] MEDS: ALBUMIN HUMAN 25%- 100ML 100 ML IV SCH (08:36)
[2016-11-24] MEDS: DECADRON JET NEB NEB SCH ×4 (08:48→20:19)
[2016-11-24] MEDS: XOPENEX 1.25 MG/3 ML NEBULE NEB SCH ×4 (08:48→20:19)
[2016-11-24] MEDS: MUCOMYST 20% 200 MG/ML NEB SCH ×4 (08:49→20:20)
[2016-11-24] MEDS: MORPHINE SULFATE INJ 4 MG IVP PRN ×2 (10:47→15:50)
[2016-11-24] MEDS: ZyPREXA TAB 5 MG PO SCH ×2 (10:53→20:59)
[2016-11-24] MEDS: COLACE CAP 100 MG PO SCH ×2 (10:54→20:57)
[2016-11-24] MEDS: LINZESS PO SCH (10:54)
[2016-11-24] MEDS: ZOLOFT PO SCH ×2 (10:54→20:58)
[2016-11-24] MEDS: SYNTHROID 50 mcg TAB PO SCH (10:55)
[2016-11-24] MEDS: MEGACE PO SCH (10:55)
[2016-11-24] MEDS: LOPRESSOR TAB 50 MG PO SCH ×3 (10:55→20:46)
[2016-11-24] MEDS: SINGULAIR TAB 10 MG PO SCH (10:55)
[2016-11-24] MEDS: HEMOCYTE-PLUS PO SCH (10:55)
[2016-11-24] MEDS: ROBITUSSIN DM PO SCH ×4 (10:56→20:58)
[2016-11-24] MEDS: FLONASE NASAL SPRAY ENOSTRIL SCH ×2 (12:14→20:50)
[2016-11-24] MEDS: ECOTRIN TAB 325 MG PO SCH (12:14)
[2016-11-24] MEDS: SANTYL EXT SCH ×2 (14:00→21:11)
[2016-11-24] MEDS: SNACK - Diabetic Appropriate PO SCH (20:48)
[2016-11-24] MEDS: LEVEMIR SC SCH (20:48)
[2016-11-24] MEDS: DULCOLAX TAB EC 5 MG PO SCH (20:57)
[2016-11-24] MEDS: FLOMAX PO SCH (20:57)
[2016-11-24] MEDS: LIPITOR TAB 20 MG PO SCH (20:58)
[2016-11-24] MEDS: MIRALAX POWDER (1 DOSE 17GM) PO SCH (20:58)
[2016-11-25] MEDS: MORPHINE SULFATE INJ 4 MG IVP PRN ×2 (02:11→10:18)
[2016-11-25] MEDS ORDERED: NS 250 ML IV 250 ML IV ONE (04:24)
[2016-11-25] MEDS: LEVAQUIN PREMIX IV 250 MG 250 MG/50 ML BAG IV SCH (05:18)
[2016-11-25] MEDS: ZANAFLEX PO SCH (05:22)
[2016-11-25] MEDS: SANTYL EXT SCH (05:22)
[2016-11-25] MEDS: ZOSYN VIAL 2.25 GM 2.25 GM in NS 100 ML IV + SPIKE MINIBAG* 100 ML IV SCH (05:23)
--- NOTE | 2016-11-25 06:04 | RAD ---
HISTORY: Shortness of breath Study: Chest one view Comparison: November 24, 2016 Findings: There is a left-sided PICC line with its tip in the superior vena cava. The heart is enlarged. No de finite congestive heart failure is noted. No acute alveolar infiltrates are identified. No pleural e ffusions are present. The bony thorax is unremarkable. IMPRESSION: Cardiomegaly without congestive heart failure Lungs clear Reported By:
[2016-11-25] MEDS: CLINIMIX 4.25 %/10 % 1,000 ML with MVI INJ (ADULT) 10 ML, TRACE ELEMENTS INJ 10 ML, TPN... IV SCH ×15 (06:08→12:08)
[2016-11-25 06:13] LABS: BASOPHILS % (AUTO) 0.2 % (0.2-1.0); EOSINOPHILS % (AUTO) 5.3 % (0.9-2.9); HEMATOCRIT 27.9 % (42.0-54.0); HEMOGLOBIN 9.1 g/dL (13.5-18.0); LYMPHOCYTES # (AUTO) 0.5 X10^3/uL (1.3-2.9); MEAN CORPUSCULAR HEMOGLOBIN 27.5 pg (27.0-34.0); MEAN CORPUSCULAR HGB CONC 32.6 g/dL (33.0-35.0); MEAN CORPUSCULAR VOLUME 84.5 fL (80.0-100.0); MEAN PLATELET VOLUME 7.2 fL (7.4-11.0); MONOCYTES # (AUTO) 0.6 x10^3/uL (0.3-0.8); MONOCYTES % (AUTO) 3.3 % (0.0-13.0); NEUTROPHILS # (AUTO) 15.8 x10^3/uL (2.2-4.8); NEUTROPHILS % (AUTO) 88.2 % (42.0-75.0); PLATELET COUNT 232 X10^3/uL (150.0-450.0); RED CELL DISTRIBUTION WIDTH 18.1 % (11.6-16.5); WHITE BLOOD COUNT 17.9 X10^3/uL (3.6-10.0)
[2016-11-25] MEDS: HumuLIN R SUBCUT PRN ×2 (06:19→11:45)
[2016-11-25 06:29] LABS: ALBUMIN 2.6 g/dL (3.4-5.0); CALCIUM 9.3 mg/dL (8.5-10.1); CARBON DIOXIDE 15.9 mmol/L (21-32); COR CA(FOR HYPOALB) 10.4 mg/dL (8.5-10.1); CREATININE 1.74 mg/dL (0.70-1.30); TOTAL PROTEIN 6.8 g/dL (6.4-8.2)
[2016-11-25] MEDS: ALBUMIN HUMAN 25%- 100ML 100 ML IV SCH (08:52)
[2016-11-25] MEDS ORDERED: ZOLOFT PO ONE (09:00)
[2016-11-25] MEDS: XOPENEX 1.25 MG/3 ML NEBULE NEB SCH ×2 (09:05→12:00)
[2016-11-25] MEDS: MUCOMYST 20% 200 MG/ML NEB SCH ×2 (09:05→12:00)
[2016-11-25] MEDS: DECADRON JET NEB NEB SCH ×2 (09:05→12:00)
[2016-11-25 09:59] LABS: ABG BASE EXCESS -9.6 mmol/L (-2.0-2.0); ABG HCO3 14.4 mmol/L (22-26)
[2016-11-25 10:00] LABS: ABG ALLEN TEST pos
[2016-11-25] MEDS: LOPRESSOR TAB 50 MG PO SCH ×2 (10:47→11:31)
--- NOTE | 2016-11-25 10:48 | CT ---
STUDY: CT HEAD WITHOUT CONTRAST HISTORY: Altered mental status. COMPARISON: Head CT dated April 07, 2015. TECHNIQUE: Multiple axial images of the head were obtained from the skull base to the vertex without administration of IV contrast. Automated exposure control (AEC) was utilized to adjust the MA and/o r kV. Findings: The sulci, cisterns and ventricles are prominent consistent with diffuse volume loss. There are confluent and scattered foci of low attenuation in the periventricular and subcortical whi te matter of both hemispheres. This is a nonspecific finding which likely represents microangiopathi c change in a patient of this age. There is a large area of cystic encephalomalacia involving the left temporal lobe with extension int o the left parietal lobe, most consistent with chronic infarction. There is no evidence of acute territorial infarction, hemorrhage, mass, mass effect or midline shift . There are no abnormal extra-axial fluid collections. There is no evidence of acute osseous abnormality or significant soft tissue swelling. IMPRESSION: 1. No evidence of acute intracranial abnormality. 2. 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 3. Nonspecific white matter change and volume loss as described. 4. If there remains strong clinical concern for acute intracranial abnormality, then an MRI examinat ion should be considered for further evaluation. Reported By:
[2016-11-25] MEDS: LOVENOX INJ 30 MG SYR SC SCH (11:01)
[2016-11-25] MEDS: COLACE CAP 100 MG PO SCH (11:19)
[2016-11-25] MEDS: ZOLOFT PO SCH (11:24)
[2016-11-25] MEDS: ZyPREXA TAB 5 MG PO SCH (11:24)
[2016-11-25] MEDS: SYNTHROID 50 mcg TAB PO SCH (11:25)
[2016-11-25] MEDS: SINGULAIR TAB 10 MG PO SCH (11:26)
[2016-11-25] MEDS: MEGACE PO SCH (11:30)
[2016-11-25] MEDS: ROBITUSSIN DM PO SCH (11:30)
[2016-11-25] MEDS: LINZESS PO SCH (11:31)
[2016-11-25] MEDS: HEMOCYTE-PLUS PO SCH (11:32)
[2016-11-25] MEDS: ECOTRIN TAB 325 MG PO SCH (11:32)
[2016-11-25] MEDS: FLONASE NASAL SPRAY ENOSTRIL SCH (11:33)
[2016-11-25] MEDS: SOLU-Medrol 40 MG VIAL IVP SCH ×2 (11:44→15:22)
[2016-11-25] MEDS: PEPCID 20 MG IV PREMIX* 20 MG/50 ML BAG IV SCH (11:45)
--- NOTE | 2016-11-25 12:12 | DR.CONSULT ---
Consult - Consultation for Day of: Date: 11/23/16 - Allergies Allergies/Adverse Reactions: Allergies Allergy/AdvReac Type Severity Reaction Status Date / Time No Known Drug Allergy Allergy Verified 10/31/16 10:46 - Past Medical History Past Medical History: Anemia, Anxiety, Depression, Diabetes, Dyslipidemia, GERD , Hypertension, Hypothyroidism Additional Medical History: Hx GI Ulcer/Bleed, Hiatal Hernia, Ventral Hernia, Pneumonia, Back Pain, BPH, Vascular Dementia, Unsteady Gait, Left-sided weakness , Constipation - Past Surgical History Surgical History: Joint Replacement Additional Surgical History: Bilat Cataract removal - Family History Family Medical History: Coronary Artery Disease, Hypertension - Social History Does patient currently use any type of tobacco product: No Have you used tobacco products in the last 12 months: No Type of Tobacco Use: None Does any household member use tobacco: No Alcohol Use: None Drug Use: None - Medications Home Medications: Alprazolam [Xanax] 0.5 mg PO BID PRN 11/19/16 [History Confirmed 11/19/16] Insulin R (Regular) [Humulin R] 0 unit SC ACHS 11/19/16 [History Confirmed 11/19] Ipratropium/Albuterol Nebule [DUONEB 0.5 MG/3 MG NEBULE *] 1 ea NEB QID PRN 12/31 [History Confirmed 11/19/16] Temazepam [RESTORIL 30 MG (GENERIC) *] 30 mg PO HS 11/19/16 [History Confirmed 11/19/16] - Physical Exam Vital Signs: Temperature 98.9 F Pulse Rate [Left Brachial] 86 Pulse Rate 88 Respiratory Rate 25 Blood Pressure [Right Arm] 127/50 Blood Pressure [Left Arm] 146/64 O2 Sat by Pulse Oximetry 97 - Plan Plan: Left hip XR reviewed. Implant in situ. He continues to have issues with inability to follow PT instructions. NO active orthopedic intervention recommended at this stage. I think his mobiblity limitation is mainly due to his mental status and his inability to work with therapy.
--- NOTE | 2016-11-25 12:38 | VAS ---
HISTORY: Dyspnea, bilateral leg pain Study: Bilateral lower extremity venous Doppler Comparison: None TECHNIQUE: Multiple culp scale as well as spectral and color flow Doppler images of the deep venous system were obtained of the right and left lower extremity. FINDINGS: The deep venous system of the right and left lower extremities was evaluated from the level of the c ommon femoral vein through the popliteal vein. Normal color flow and augmentation can be observed. In addition, normal compression is seen throughout the deep venous system. IMPRESSION: Negative for DVT. Reported By:
[2016-11-25] MEDS ORDERED: QUELICIN (OR ANECTINE) ONE (12:58)
[2016-11-25] MEDS ORDERED: DIPRIVAN VIAL 20 ML ONE ×2 (12:58→15:00)
[2016-11-25 13:12] VITALS: BP 147/61
[2016-11-25] MEDS ORDERED: DIPRIVAN PREMIX 1 GM IV 1,000 MG/100 ML VIAL IV PRN (13:20)
[2016-11-25] MEDS ORDERED: HEPARIN SODIUM IN D5W 25,000 UNITS/500 ML BAG IV PRN (13:20)
[2016-11-25] MEDS ORDERED: DIPRIVAN ONE (13:24)
[2016-11-25] MEDS ORDERED: HEPARIN SODIUM IN D5W 25,000 UNITS/500 ML BAG IV ONE (13:24)
[2016-11-25] MEDS ORDERED: HEPARIN SODIUM INJ 5000 UNITS IVP ONE (13:35)
--- NOTE | 2016-11-25 14:14 | PCM.PROG ---
Progress Note - Progress Note for Day of Date: 11/25/16 (Anesthesia note: Pt given 120mg Propofol and 100mg Anectine and intubated using Glidescpope with 7.5 OETT. +bbs, +etco2. Pt tolerated procedure well.) - Subjective Subjective: PATIENT IS NOTED ON BIPAP ON MORNING ROUNDS. HIS RESPIRATORY EFFORT HAS SLIGHTLY IMPROVED SINCE YESTERDAY. ON AUSCULTATION, LUNGS CONTINUED WITH WHEEZING BILATERALLY. AT BEDSIDE. PATIENT CONTINUES WITH ACEVES. HE CONTINUES WITH SOME CONFUSION THIS MORNING. PATIENT WAS AFEBRILE THROUGH THE NIGHT. PATIENT CONTINUES WITH COUGH AND CHEST CONGESTION. PATIENT CONTINUES ON IV ANTIBIOTICS AND AGGRESSIVE NEB TREATMENTS FOR BILATERAL PNEUMONIA. WE WILL CONTINUE MUCOMYST AND DECADRON TO NEB TREATMENTS. PATIENT REMAINS FULL CODE STATUS. PATIENT CONTINUES WITH POOR APPETITE DUE TO RESPIRATORY EFFORT AND HE CONTINUES ON TPN TODAY. CBC WNL EXCEPT: WBC 16.5, H/H 9.7/29.8. CMP WNL EXCEPT: CARBON DIOXIDE 17.5, BUN/CREAT 45/2.08, GFR 33, ALBUMIN 2.7. CHEST XRAY REPORTS: NO CHANGES SINCE PRIOR EXAMINATION. WE WILL CONTINUE AGGRESSIVE PULMONARY TOILETING, CONTINUE BIPAP, AND MONITOR CLOSELY. WE WILL FOLLOW UP IN AM WITH LABS AND CHEST XRAY. - Past Medical Family Social History Past Med/Fam/Surg Hx: No changes since H&P Allergies: Allergies No Known Drug Allergy Allergy (Verified 10/31/16 10:46) - Review of Systems ROS: No change since H&P - Vital Signs and I&O's Vital Signs: Temperature 98.9 F Pulse Rate [Left Brachial] 98 Pulse Rate 88 Respiratory Rate 27 Blood Pressure [Right Arm] 147/61 Blood Pressure [Left Arm] 146/64 O2 Sat by Pulse Oximetry 100 Intake and Output: Intake & Output 11/23/16 11/24/16 11/25/16 11/26/16 11:59 11:59 11:59 11:59 Intake Total 2290 2562 2130 Output Total 3700 1950 1200 Balance -1410 612 930 - Physical Exam Oriented: Person Eyes: Normal. negative: Blurred Vision, Diplopia, Discharge, Pain, Redness, Photophobia Ear: Normal. negative: Swelling, Ecchymosis, Hemotypanum, Abrasion, Laceration Nose: Normal. negative: Injected, Discharge, Blood Throat: Red, Dry. negative: Tonsillar Hypertrophy, Exudate Respiratory: Generalized, Wheezes, Rales Cardiovascular: Normal. negative: Murmur, Edema : Normal. negative: Dysuria, Hematuria, Frequency, Testicular Pain Auscultation: Bowel Sounds: Normal. negative: Bruit Tenderness: negative: Rebound, Guarding, Rigidity Skin: Normal. negative: Diaphoresis, Wound, Bruising, Ecchymosis Musculoskeletal: Instability Psychiatric: Normal Mood Description: Calm Affect: Normal Speech Pattern: Aphasic - Laboratory and Diagnostics Result Diagrams: 11/25/16 04:55 11/25/16 04:55 Labs: 11/22/16 21:40 Blood Blood Culture - Preliminary 11/22/16 21:30 Blood Blood Culture - Preliminary 11/19/16 05:33 Sputum - Expectorated Sputum Sputum Culture - Final 11/19/16 05:33 Sputum - Expectorated Sputum - Final Laboratory WBC 17.9 X10^3/uL (3.6-10.0) H 11/25/16 04:55 RBC 3.30 X10^6/uL (4.7-6.0) L 11/25/16 04:55 Hgb 9.1 g/dL (13.5-18.0) L 11/25/16 04:55 Hct 27.9 % (42.0-54.0) L 11/25/16 04:55 MCV 84.5 fL (80.0-100.0) 11/25/16 04:55 MCH 27.5 pg (27.0-34.0) 11/25/16 04:55 MCHC 32.6 g/dL (33.0-35.0) L 11/25/16 04:55 RDW 18.1 % (11.6-16.5) H 11/25/16 04:55 Plt Count 232 X10^3/uL (150.0-450.0) 11/25/16 04:55 Plt Count Comment Adequate (ADEQUATE) 11/24/16 03:45 MPV 7.2 fL (7.4-11.0) L 11/25/16 04:55 Neut % 88.2 % (42.0-75.0) H 11/25/16 04:55 Lymph % 3.0 % (21.0-51.0) L 11/25/16 04:55 Centre % 3.3 % (0.0-13.0) 11/25/16 04:55 Eos % 5.3 % (0.9-2.9) H 11/25/16 04:55 Baso % 0.2 % (0.2-1.0) 11/25/16 04:55 Neut # 15.8 x10^3/uL (2.2-4.8) H 11/25/16 04:55 Lymph # 0.5 X10^3/uL (1.3-2.9) L 11/25/16 04:55 Centre # 0.6 x10^3/uL (0.3-0.8) 11/25/16 04:55 Eos # 1.0 x10^3/uL (0.0-0.2) H 11/25/16 04:55 Baso # 0.0 X10^3/uL (0.0-0.1) 11/25/16 04:55 Absolute Nucleated RBC 0.0 /100WBC 11/25/16 04:55 Total Counted 100 11/24/16 03:45 Neutrophils % (Manual) 89 % (39-76) H 11/24/16 03:45 Band Neutrophils % 2 % (0-10) 11/24/16 03:45 Lymphocytes % (Manual) 4 % (13-43) L 11/24/16 03:45 Monocytes % (Manual) 2 % (4-9) L 11/24/16 03:45 Eosinophils % (Manual) 3 % (0-6) 11/24/16 03:45 Basophils % (Manual) Cancelled 11/23/16 03:50 Metamyelocytes % Cancelled 11/23/16 03:50 Myelocytes % Cancelled 11/23/16 03:50 Promyelocytes % Cancelled 11/23/16 03:50 Nucleated RBCs Cancelled 11/23/16 03:50 Atypical Lymphocytes Cancelled 11/23/16 03:50 Blast Cells Cancelled 11/23/16 03:50 Smudge Cells Cancelled 11/23/16 03:50 Toxic Granulation Cancelled 11/23/16 03:50 Dohle Bodies Cancelled 11/23/16 03:50 Mickey Rods Cancelled 11/23/16 03:50 Plt Clumps, EDTA Cancelled 11/23/16 03:50 Giant Platelets Cancelled 11/23/16 03:50 Plt Morphology Comment Normal (NORMAL) 11/24/16 03:45 RBC Morphology Normal (NORMAL) 11/24/16 03:45 Dimorphic RBCs Cancelled 11/23/16 03:50 Polychromasia Cancelled 11/23/16 03:50 Hypochromasia Slight A 11/23/16 06:39 Poikilocytosis Cancelled 11/23/16 03:50 Basophilic Stippling Cancelled 11/23/16 03:50 Anisocytosis Cancelled 11/23/16 03:50 Microcytosis Cancelled 11/23/16 03:50 Macrocytosis Cancelled 11/23/16 03:50 Spherocytes Cancelled 11/23/16 03:50 Pappenheimer Bodies Cancelled 11/23/16 03:50 Sickle Cells Cancelled 11/23/16 03:50 Target Cells Cancelled 11/23/16 03:50 Tear Drop Cells Cancelled 11/23/16 03:50 Ovalocytes Cancelled 11/23/16 03:50 Stomatocytes Cancelled 11/23/16 03:50 Helmet Cells Cancelled 11/23/16 03:50 Villaseñor-Maybell Bodies Cancelled 11/23/16 03:50 Stephen Rings Cancelled 11/23/16 03:50 [place] Cells Cancelled 11/23/16 03:50 Crenated Cell Cancelled 11/23/16 03:50 Acanthocytes (Spur) Cancelled 11/23/16 03:50 Rouleaux Cancelled 11/23/16 03:50 Schistocytes Cancelled 11/23/16 03:50 INR Target Range - 11/25/16 13:35 INR 1.49 (0.8-1.3) H 11/25/16 13:35 PTT 36.5 SECONDS (22.9-36.5) 11/25/16 13:35 PTT Comment - 11/25/16 13:35 D-Dimer > 5000 ng/mL (0-400) H* 11/25/16 11:25 Sample Site lrad 11/25/16 09:25 ABG pH 7.350 (7.35-7.45) 11/25/16 09:25 ABG pCO2 26.0 mmHg (35.0-45.0) L 11/25/16 09:25 ABG pO2 74.0 mmHg (80.0-100.0) L 11/25/16 09:25 ABG HCO3 14.4 mmol/L (22-26) L* 11/25/16 09:25 ABG O2 Saturation 94.0 % (90-100) 11/25/16 09:25 ABG Base Excess -9.6 mmol/L (-2.0-2.0) L 11/25/16 09:25 Jim Test pos 11/25/16 09:25 A-a Gradient 250.0 mmHg 11/25/16 09:25 FiO2 50.000 11/25/16 09:25 Blood Gas Comments donell jung m foxer 11/25/16 09:25 Sodium 142 mmol/L (136-145) 11/25/16 04:55 Corrected Sodium 145 mmol/L (136-145) 11/25/16 04:55 Potassium 5.0 mmol/L (3.5-5.1) 11/25/16 04:55 Chloride 112 mmol/L (98-107) H 11/25/16 04:55 Carbon Dioxide 15.9 mmol/L (21-32) L 11/25/16 04:55 BUN 61 mg/dL (7-18) H 11/25/16 04:55 Creatinine 1.74 mg/dL (0.70-1.30) H 11/25/16 04:55 Est GFR (MDRD) Af Amer 49 (>60) L 11/25/16 04:55 Est GFR (MDRD) Non-Af 41 (>60) L 11/25/16 04:55 Glucose 226 mg/dL (65-99) H 11/25/16 04:55 Lactic Acid 1.8 mmol/L (0.4-2.0) 11/19/16 05:15 Calcium 9.3 mg/dL (8.5-10.1) 11/25/16 04:55 Corrected Calcium 10.4 mg/dL (8.5-10.1) H 11/25/16 04:55 Magnesium 3.9 mg/dL (1.7-2.9) H 11/19/16 03:45 Total Bilirubin 0.60 mg/dL (0.2-1.0) 11/25/16 04:55 AST 105 Units/L (15-37) H 11/25/16 04:55 ALT 83 Units/L (12-78) H 11/25/16 04:55 Alkaline Phosphatase 161 Units/L (46-116) H 11/25/16 04:55 Creatine Kinase 256 Units/L (39-308) 11/19/16 16:37 CK-MB (CK-2) 2.6 ng/mL (0-4.0) 11/19/16 16:37 CK/CKMB % Calc 1.0 % (<4) 11/19/16 16:37 Troponin I 0.02 ng/mL (0-1.5) 11/19/16 16:37 B-Natriuretic Peptide 216 pg/mL (0-79) H 11/19/16 05:25 Total Protein 6.8 g/dL (6.4-8.2) 11/25/16 04:55 Albumin 2.6 g/dL (3.4-5.0) L 11/25/16 04:55 Globulin 4.2 g/dL (2.5-4.5) 11/25/16 04:55 Albumin/Globulin Ratio 0.6 Ratio (1.1-2.1) L 11/25/16 04:55 Triglycerides 165 mg/dL (0-150) H 11/20/16 03:45 Cholesterol 101 mg/dL (0-200) 11/20/16 03:45 LDL Cholesterol, Calc 56 mg/dL (0-100) 11/20/16 03:45 HDL Cholesterol 12 mg/dL (40-60) L 11/20/16 03:45 Cholesterol/HDL Ratio 8.4 (0.0-5.0) H 11/20/16 03:45 Specimen Type Catherized urine 11/19/16 04:58 Urine Color Yellow (YELLOW) 11/19/16 04:58 Urine Appearance Slightly hazy (CLEAR) 11/19/16 04:58 Urine pH 6.0 (5.0 - 8.0) 11/19/16 04:58 Ur Specific [place] 1.015 (1.000-1.030) 11/19/16 04:58 Urine Protein 2+ (NEGATIVE) 11/19/16 04:58 Urine Glucose (UA) Negative (NEGATIVE) 11/19/16 04:58 Urine Ketones Negative (NEGATIVE) 11/19/16 04:58 Urine Occult Blood 1+ (NEGATIVE) 11/19/16 04:58 Urine Nitrite Negative (NEGATIVE) 11/19/16 04:58 Urine Bilirubin 1+ (NEGATIVE) 11/19/16 04:58 Urine Urobilinogen Normal (NORMAL) 11/19/16 04:58 Ur Leukocyte Esterase Negative (NEGATIVE) 11/19/16 04:58 Urine RBC 0-3 /HPF (NEGATIVE) 11/19/16 04:58 Urine WBC 0-3 /HPF (NEGATIVE) 11/19/16 04:58 Ur Squamous Epith Cells Rare /HPF (NEGATIVE) 11/19/16 04:58 Amorphous Sediment Trace /HPF (NEGATIVE) 11/19/16 04:58 Urine Bacteria Negative /HPF (NEGATIVE) 11/19/16 04:58 Ur Culture Indicated? No/not indicated 11/19/16 04:58 Blood Type A NEGATIVE 11/21/16 10:13 Antibody Screen Negative 11/21/16 10:13 Crossmatch See Detail 11/21/16 10:13
--- NOTE | 2016-11-25 14:33 | RAD ---
HISTORY: ETT placement Study: Chest one view Comparison: November 25, 2016 5:27 a.m. Findings: There is now an endotracheal tube in good position. There is left-sided PICC line with its tip in th e superior vena cava. The heart is minimally enlarged. The sabas are now somewhat indistinct and the interstitium is prominent suggestive of the interval develop ment of congestive heart failure. No al veolar infiltrates, alveolar edema, pleural effusions are identified. The bony thorax is unremarkabl e. IMPRESSION: Endotracheal tube in good position Mild congestive heart failure in the form of interstitial edema Reported By:
[2016-11-25] MEDS ORDERED: DIPRIVAN PREMIX 1 GM IV 1,000 MG/100 ML VIAL ONE (15:01)
[2016-11-26] MEDS ORDERED: SOLU-Medrol 40 MG VIAL IVP SCH (09:00)
== END 2016-11-25 14:24 | disposition short-term general hospital (02) | DRG 208 ==
LOC: ER 02:49 → ICU 05:28
PROVIDERS: ADMIT Internal Medicine; ATTEND Internal Medicine
PROC: 02HV33Z Insertion of Infusion Device into Superior Vena Cava, Percutaneous Approach (ICD-10-PCS; principal; 2016-11-18)
PROC: 30233N1 Transfusion of Nonautologous Red Blood Cells into Peripheral Vein, Percutaneous Approach (ICD-10-PCS; 2016-11-21)
PROC: 30233N1 Transfusion of Nonautologous Red Blood Cells into Peripheral Vein, Percutaneous Approach (ICD-10-PCS; 2016-11-22)
PROC: 5A1935Z Respiratory Ventilation, Less than 24 Consecutive Hours (ICD-10-PCS; 2016-11-25)
PROC: 0BH18EZ Insertion of Endotracheal Airway into Trachea, Via Natural or Artificial Opening Endoscopic (ICD-10-PCS; 2016-11-25)
DX: J16.8 Pneumonia due to other specified infectious organisms (principal); N18.4 Chronic kidney disease, stage 4 (severe); E87.2 Acidosis; I50.9 Heart failure, unspecified; R06.09 Other forms of dyspnea; R07.89 Other chest pain; R10.13 Epigastric pain; E78.2 Mixed hyperlipidemia; K21.9 Gastro-esophageal reflux disease without esophagitis; I12.9 Hypertensive chronic kidney disease with stage 1 through stage 4 chronic kidney disease, or unspecified chronic kidney disease; E03.8 Other specified hypothyroidism; E87.5 Hyperkalemia; D64.89 Other specified anemias; K59.00 Constipation, unspecified; E10.65 Type 1 diabetes mellitus with hyperglycemia; Z79.4 Long term (current) use of insulin; F01.50 Vascular dementia, unspecified severity, without behavioral disturbance, psychotic disturbance, mood disturbance, and anxiety; Z86.73 Personal history of transient ischemic attack (TIA), and cerebral infarction without residual deficits; D50.8 Other iron deficiency anemias; M79.605 Pain in left leg; M79.604 Pain in right leg; R26.81 Unsteadiness on feet; R13.11 Dysphagia, oral phase; R94.31 Abnormal electrocardiogram [ECG] [EKG]; I87.2 Venous insufficiency (chronic) (peripheral); Z78.1 Physical restraint status
CPT/HCPCS: 36415; 36430; 36600; 51702; 70450; 71010; 74176; 80053; 80061; 81001; 82550; 82553; 82803; 82947; 83605; 83735; 83880; 84484; 85025; 85378; 85610; 85730; 86850; 86900; 86901; 86922; 87040; 87070; 87205; 93005; 93306; 93970; 94640; 94660; 94669; 96365; 96374; 96375; 97535; 99284; 99285; A4216; A4222; A4618; A7030; B4189; P9016; P9047; S0028; S0179; 1956; J0330; J0696; J1200; J1644; J1650; J1815; J1940; J1956; J2270; J2405; J2543; J2920; J2930; J3360; J3490; J7608; J7620